=== PATIENT | male | born 1945 | race Caucasian/White ===

== ENCOUNTER 2016-12-04 21:00 | Inpatient (IN) | payer MEDICARE, MEDICAID ==
[2016-12-04] MEDS ORDERED: ASPIRIN 81 MG TABLET, CHEWABLE PO ONE (21:04)
[2016-12-04 21:46] LABS: ABSOLUTE BASOPHILS # (AUTO) 0.1 10^3/uL (0.0-0.2); ABSOLUTE EOSINOPHILS # (AUTO) 0.2 10^3/uL (0.0-0.6); ABSOLUTE MONOCYTES (AUTO) 0.6 10^3/uL (0.1-1.4); ABSOLUTE NEUT (AUTO) 8.1 10^3/uL (1.7-8.2); BASOPHILS % (AUTO) 1.2 % (0-2); EOSINOPHILS % (AUTO) 2.3 % (0-6); HEMATOCRIT 36.5 % (37.9-51.0); HEMOGLOBIN 11.7 g/dL (13.5-17.0); HGB HCT DIFFERENCE -1.4; LYMPHOCYTES % (AUTO) 10.4 % (13-45); MEAN CORPUSCULAR HEMOGLOBIN 28.6 pg (27.0-33.4); MEAN CORPUSCULAR HGB CONC 32.1 g/dL (32.0-36.0); MEAN CORPUSCULAR VOLUME 89 fl (80-97); MONOCYTES % (AUTO) 5.6 % (3-13); RED BLOOD COUNT 4.11 10^6/uL (4.35-5.55); RED CELL DISTRIBUTION WIDTH 17.5 % (11.5-14.0); SEGMENTED NEUTROPHILS % (AUTO) 80.5 % (42-78); WHITE BLOOD COUNT 10.1 10^3/uL (4.0-10.5)
[2016-12-04 22:04] LABS: ALANINE AMINOTRANSFERASE 31 U/L (21-72); ALBUMIN 3.7 g/dL (3.5-5.0); ALKALINE PHOSPHATASE 131 U/L (38-126); ANION GAP 14 (5-19); ASPARTATE AMINO TRANSFERASE 19 U/L (17-59); BILIRUBIN,TOTAL 0.4 mg/dL (0.2-1.3); BLOOD UREA NITROGEN 17 mg/dL (7-20); CALCIUM 8.8 mg/dL (8.4-10.2); CARBON DIOXIDE 25 mmol/L (22-30); CHLORIDE 103 mmol/L (98-107); CREATINE KINASE 24 U/L (55-170); CREATININE RESULT 0.52 mg/dL (0.52-1.25); GLUCOSE 177 mg/dL (75-110); POTASSIUM 4.1 mmol/L (3.6-5.0); SODIUM 142.2 mmol/L (137-145); TOTAL PROTEIN 6.3 g/dL (6.3-8.2)
[2016-12-04 22:21] LABS: CREATINE KINASE MB 1.04 ng/mL (<4.55)
[2016-12-04 22:30] LABS: TROPONIN I 0.038 ng/mL
[2016-12-04] MEDS ORDERED: METOPROLOL TARTRATE PF/INJ 5 MG/5 ML SDV IV ONE (22:34)
--- NOTE | 2016-12-04 22:34 | ER Document Report ---
ED General - General Chief Complaint: Irregular Pulse Stated Complaint: IRREGULAR HEARTBEAT Notes: Patient is a 71-year-old male presents with complaints of palpitations. He does have history of atrial flutter. Today he notices heart rate was feeling higher. He did not receive his evening meds. He did receive his morning meds at the group home. He does have a history of muscular dystrophy. He is able to fill pain but is unable to move his extremities. He denies any pain. No chest pain. No shortness of breath. No other complaints this time. No recent infections or fevers. TRAVEL OUTSIDE OF THE [place] IN LAST 30 DAYS: No - Related Data Allergies/Adverse Reactions: Sulfa (Sulfonamide Antibiotics) Allergy (Unknown, Verified 04/29/16 12:20) lisinopril Allergy (Verified 12/05/16 03:13) Past Medical History - Social History Smoking Status: Unknown if Ever Smoked Frequency of alcohol use: None Drug Abuse: None Family History: None, Other - Hereditary progressive muscular dystrophy - Past Medical History Cardiac Medical History: Reports: Hx Coronary Artery Disease, Hx Heart Attack, Hx Hypercholesterolemia, Hx Hypertension, Hx Heart Murmur Denies: Hx Atrial Fibrillation, Hx Congestive Heart Failure, Hx Peripheral Vascular Disease, Hx Pulmonary Embolism Pulmonary Medical History: Reports: Hx Bronchitis, Hx Pneumonia, Hx Respiratory Failure Denies: Hx Asthma, Hx COPD, Hx Sleep Apnea, Hx Tuberculosis Neurological Medical History: Reports: Hx Cerebrovascular Accident, Hx Migraine. Denies: Hx Seizures Endocrine Medical History: Reports: Hx Diabetes Mellitus Type 2. Denies: Hx Graves' Disease, Hx Hyperthyroidism, Hx Hypothyroidism Renal/ Medical History: Denies: Hx Benign Prostatic Hyperplasia, Hx End Stage Renal Disease, Hx Kidney Stones, Hx Peritoneal Dialysis Malignancy Medical History: Denies Hx Lung Cancer GI Medical History: Reports: Hx Gastroesophageal Reflux Disease, Hx Hiatal Hernia, Hx Irritable Bowel, Hx Ulcer. Denies: Hx Crohn's Disease, Hx Liver Failure Musculoskeltal Medical History: Reports Hx Arthritis, Denies Hx Fibromyalgia, Reports Hx Gout, Denies Hx Multiple Sclerosis, Reports Hx Muscular Dystrophy Psychiatric Medical History: Reports: Hx Anxiety, Hx Depression Denies: Hx Bipolar Disorder, Hx Dementia, Hx Post Traumatic Stress Disorder, Hx Schizophrenia Traumatic Medical History: Denies: Hx Fractures Past Surgical History: Reports: Hx Cholecystectomy. Denies: Hx Colostomy, Hx Pacemaker - Immunizations Hx Diphtheria, Pertussis, Tetanus Vaccination: Yes Hx Pneumococcal Vaccination: 11/19/00 Review of Systems - Review of Systems Notes: My Normal Review Basic REVIEW OF SYSTEMS: CONSTITUTIONAL : Denies fever, chills, or sweats. Denies recent illness. EENT: Denies eye, ear, throat, or mouth pain or symptoms. Denies nasal or sinus congestion. CARDIOVASCULAR: Denies chest pain. Has palpitations. RESPIRATORY: Denies cough, cold, or chest congestion. Denies shortness of breath, difficulty breathing, or wheezing. GASTROINTESTINAL: Denies abdominal pain. Denies nausea, vomiting, or diarrhea. Denies constipation. Last BM: MUSCULOSKELETAL: Denies neck or back pain or joint pain or swelling. SKIN: Denies rash or skin lesions. NEUROLOGICAL: Denies altered mental status or loss of consciousness. Denies headache. Denies weakness or paralysis or loss of use of either side. Denies problems with gait or speech. Denies sensory or motor loss. ALL OTHER SYSTEMS REVIEWED AND NEGATIVE. Physical Exam - Vital signs Vitals: Pulse Ox 99 12/04/16 21:16 - Notes Notes: General Appearance: Well nourished, alert, cooperative, no acute distress, no obvious discomfort. Well-appearing. Vitals: reviewed, See vital signs table. Head: no swelling or tenderness to the head Eyes: PERRL, EOMI, Conjuctiva clear Mouth: No decreasd moisture Neck: Supple, no neck tenderness, No thyromegaly Lungs: No wheezing, No rales, No rhonci, No accessory muscle use, good air exchange bilaterally. Heart: Tachycardic rate, irregular rythm, No murmur, no rub Abdomen: Normal BS, soft, No rigidity, No abdominal tenderness, No guarding, no rebound, no abdominal masses, no organomegaly Extremities: strength 5/5 in all extremities, good pulses in all extremities, no swelling or tenderness in the extremities, no edema. Skin: warm, dry, appropriate color, no rash Neuro: speech clear, oriented x 3, normal affect, responds appropriately to questions. Course - Vital Signs Vital signs: Temp Pulse Resp BP Pulse Ox 99.7 F 83 20 158/74 H 100 12/05/16 04:18 12/05/16 04:18 12/05/16 04:18 12/05/16 04:18 12/05/16 04:18 - Laboratory Result Diagrams: 12/04/16 21:34 12/04/16 21:34 Laboratory results interpreted by me: 12/04/16 12/04/16 21:34 21:34 RBC 4.11 L Hgb 11.7 L Hct 36.5 L RDW 17.5 H Seg Neutrophils % 80.5 H Lymphocytes % 10.4 L Glucose 177 H Alkaline Phosphatase 131 H Creatine Kinase 24 L - EKG Interpretation by Me Additional EKG results interpreted by me: 12/04/16 22:28 EKG is reviewed and interpreted by me. EKG shows A. fib versus a flutter with a rapid ventricular response. Radius proximal 110 bpm. QRS duration is within normal range. Due to intervals prolonged. No ST segment elevation or depression. Old EKG for comparison is from 04/30/2016 and shows atrial flutter. - Transfer of Care Notes: 12/05/16 06:01 Patient has atrial flutter with rapid ventricular response. I did give him Lopressor which did not have an effect on his heart rate. His heart rate continued increase in got as high as 140s. I started him on Cardizem drip. This has improved his symptoms. He has no chest pain. Cardiac enzymes are negative. He looks well. I spoke with the hospitalist who agrees with the patient for further management. Dictation of this chart was performed using voice recognition software; therefore, there may be some unintended grammatical errors. Discharge - Discharge Clinical Impression: Atrial flutter with rapid ventricular response Disposition: ADMITTED INPATIENT Admitting Provider: Hospitalist Unit Admitted: [facility]
[2016-12-05] MEDS ORDERED: DILTIAZEM HCL INJ 25 MG/5 ML VIAL IV ONE (00:12)
[2016-12-05] MEDS ORDERED: DILTIAZEM HCL/D5W 125 ML IV PRN (00:12)
[2016-12-05] MEDS ORDERED: INSULIN LISPRO 100 UNIT/ML 3 ML VIAL SUBCUT PRN (03:07)
[2016-12-05] MEDS ORDERED: DEXTROSE 50%-WATER 25 GM/50 ML DISP.SYRIN IV PRN ×2 (03:07)
[2016-12-05] MEDS ORDERED: GLUCAGON,HUMAN RECOMB 1 MG INJ IM PRN (03:07)
[2016-12-05] MEDS ORDERED: DEXTROSE 40% GEL 15 GM TUBE PO PRN ×2 (03:07)
[2016-12-05] MEDS ORDERED: DILTIAZEM HCL/D5W 125 MG/125 ML RTUINJ IV PRN (03:08)
--- NOTE | 2016-12-05 03:27 | PDOC H&P ---
History of Present Illness Admission Date/PCP: 12/05/16 02:12 Dr. Sanon Patient complains of: Rapid heartbeat History of Present Illness: MEAGHAN SALAMANCA is a 71 year old male, with known underlying atrial fibrillation, along with prior coronary artery stents, bedbound due to long-standing muscular dystrophy, but still able to detect pain and light touch , who presents to the emergency room for evaluation of above complaints. Patient has been discussed with emergency room physician who evaluated the patient. Patient describes a four-day history of intermittent sensation of a rapid heartbeat. No chest pain. Possibly low-grade temperature of 99 at care home ; no chills. No nausea vomiting. Was noted to be in atrial flutter with rapid ventricular response, necessitating both Cardizem boluses and eventual drip, which has controlled his rate nicely. States he was given his morning medications on the , but not his evening medications.. Transferred from our facility in April of last year for suspected non-ST elevation AL. Stayed 4 days at [facility]. States neither heart catheterization nor stress test was performed. Currently resting quietly without specific complaint. Laboratory results are listed in [employer] and are reviewed. X-ray summary results are listed below, with full report(s) reviewed. . EKG reviewed. And compared to a prior tracing from April 30 of last year. Social history/personal habits: . No children. On disability due to his muscular dystrophy. Long-term resident of [facility]. Allergies/adverse reactions are listed in [employer] and are reviewed. Home medications are reviewed from the medication administration record from the care home and are to [facility] Home medications initially autopopulated into [employer] may not accurately reflect patient's true medications, dosages, and/or frequencies. REVIEW OF SYSTEMS: Constitutional: See history and present illness. Eyes: Wears glasses. ENT: No swallowing problems or complaints. Partial hearing loss. Pulmonary: No current complaints. Cardiovascular: See history and present illness. Gastrointestinal: No current complaints, including nausea or vomiting. Skin: Occasional problems with eczema. Hematologic: No unusual easy bruising or bleeding. Neurologic: Chronic burning discomfort in his lower extremities from his diabetes mellitus. No motor function in any of his extremities, but states pain and light touch sensation are intact. Musculoskeletal: No current complaints, including painful joints. Psychiatric: Mild Anxiety depression; denies suicidal or homicidal ideation. Endocrine: No current complaints, including polyuria. Genitourinary: No current complaints, including dysuria. PHYSICAL EXAMINATION: Neither height nor weight are recorded on the chart. Temperature is not recorded on the chart; skin feels normothermic. Blood pressure 143/71. Pulse 82 and regular. 97% saturation on room air. Respirations are 17 and unlabored. Obese but also somewhat stocky male appearing quite a number of views younger than his stated age. Smiling pleasant awake alert and cooperative. No obvious distress other than somewhat anxious. Skin is warm and dry. No grossly obvious evidence of rash in areas of skin examined. No subcutaneous nodules palpated. ENT: Hearing grossly normal to normal conversation. Tongue midline on protrusion pink and slightly moist. Eyes: No scleral icterus. Pupils equal and reactive to light at 4 mm. [place] conjunctivae. Neck is supple and nontender to gentle active range of motion and palpation. Midline trachea. No palpable thyroid nodule mass enlargement or tenderness. Lymphatic: No palpable cervical or clavicular nodes. Neck and lymphatic exams limited by patient body habitus. Psychiatric: Reasonable insight into acute and chronic medical issues. Oriented to time location and why here. Lungs: Auscultation reveals clear and equal breath sounds bilaterally. No use of accessory respiratory muscles. Cardiovascular: Heart regular rate and rhythm, without gallop murmur or rub. No carotid or abdominal aortic bruits. Very mild bilateral symmetric slightly pitting calf ankle and pedal edema. Faintly palpable dorsalis pedis pulses. Abdomen: soft, obese, nontender with positive bowel sounds. Unable to adequately evaluate abdomen for masses or organomegaly due to body habitus. Extremities: Feet are warm and dry. No calf tenderness to compression. No grossly obvious visual evidence of calf swelling. Symmetric muscle wasting in both upper extremities, and in both lower extremities. Neurologic: Absent Babinski. Light touch is intact at feet. No motor function in any of his extremities. Past Medical History Cardiac Medical History: Reports: Atrial Fibrillation, Coronary Artery Disease, Myocardial Infarction, Hyperlipidema, Hypertension, Heart Murmur Denies: Congestive Heart Failure, DVT, Peripheral Vascular Disease, Pulmonary Embolism Pulmonary Medical History: Reports: Bronchitis, Pneumonia, Respiratory Failure Denies: Asthma, Chronic Obstructive Pulmonary Disease (COPD), Sleep Apnea, Tuberculosis EENT Medical History: Reports: Eyes - Wears glasses, Ears - Partial hearing loss Denies: Throat Neurological Medical History: Reports: Ischemic CVA, Migraine, Other - Long- standing muscular dystrophy. Denies: Hemorrhagic CVA, Seizures Endocrine Medical History: Reports: Diabetes Mellitus Type 2 Denies: Hyperthyroidism, Hypothyroidism Renal/ Medical History: Reports: None Denies: End Stage Renal Disease GI Medical History: Reports: Gastroesophageal Reflux Disease, Hiatal Hernia Denies: Cirrhosis, Crohn's Disease, Hepatitis, Peptic Ulcer Disease Musculoskeltal Medical History: Reports: Arthritis, Gout Skin Medical History: Reports: Eczema Psychiatric Medical History: Reports: Depression, General Anxiety Disorder Denies: Alcohol Dependency, Post Traumatic Stress Disorder, Substance Abuse, Tobacco Dependency Hematology: Reports: Anemia Infectious Medical History: Denies: Hepatitis B, Hepatitis C Past Surgical History Past Surgical History: Reports: Cholecystectomy, Other - Stents-coronary bilateral lower extremity, renal artery Social History Information Source: Patient, Emergency Med Personnel, [facility] Records Lives with: Mcc Smoking Status: Former Smoker Frequency of Alcohol Use: None Hx Recreational Drug Use: No Hx Prescription Drug Abuse: No - Advance Directive Resuscitation Status: Full Code Surrogate healthcare decision maker:: Brother Family History Family History: None, Other - Hereditary progressive muscular dystrophy Parental Family History Reviewed: Yes Children Family History Reviewed: NA Sibling(s) Family History Reviewed.: Yes Medication/Allergy Home Medications: Acetaminophen [Tylenol 325 mg Tablet] 650 mg PO Q4HP PRN 12/05/16 Albuterol Sulfate [Ventolin HFA MDI 18 GM] 2 puff IH Q4HP PRN 12/05/16 Apixaban [Eliquis 5 mg Tablet] 5 mg PO Q12 12/05/16 Aspirin [Aspirin 81 mg Chewable Tablet] 81 mg PO DAILY 12/05/16 Atorvastatin Calcium [Lipitor 80 mg Tablet] 80 mg PO QHS 12/05/16 Calcium Carbonate/Vitamin D3 [Oyster Shell Calcium-Vit D Tab] 1 tab PO DAILY Duloxetine HCl [Cymbalta] 60 mg PO QAM 12/05/16 Insulin Lispro [Humalog Insulin (Lispro) 100 unit/mL] 5 units SQ BIDP PRN Isosorbide Mononitrate [Isosorbide Mononitrate ER] 30 mg PO DAILY 12/05/16 Levocetirizine Dihydrochloride [Xyzal 5 mg Tablet] 5 mg PO DAILYP PRN 12/05/16 Loperamide HCl [Imodium 2 mg Capsule] 2 mg PO Q4HP PRN 12/05/16 Lorazepam [Ativan 0.5 mg Tablet] 0.5 mg PO QHS 12/05/16 Magnesium Oxide [Mag-Ox 400 mg Tablet] 400 mg PO DAILY 12/05/16 Metformin HCl [Glucophage] 1,000 mg PO DAILY 12/05/16 Nitroglycerin [Nitrostat] 0.4 mg SL Q5MP PRN 12/05/16 Polyvinyl Alcohol [Artificial Tears] 1 drop OU QIDP PRN 12/05/16 Promethazine HCl [Phenergan 25 mg Tablet] 25 mg PO Q4HP PRN 12/05/16 Psyllium Husk/Aspartame [Metamucil Fiber Singles Packet] 3.4 gm PO BIDP PRN Simethicone [Gas-X] 80 mg PO DAILYP PRN 12/05/16 Sitagliptin Phosphate [Januvia] 100 mg PO DAILY 12/05/16 Tamsulosin HCl [Flomax 0.4 mg Cap.sr] 0.4 mg PO DAILY 12/05/16 Toothpaste [Sensodyne] 1 applic PO BID 12/05/16 Diltiazem HCl [Cardizem Cd 120 mg Capsule] 120 mg PO DAILY #30 cap.sr.24h Diphenhydramine HCl 2% Cream [Benadryl 2% Allergy Cream 30 gm] 1 applic TP BID # 1 tube 12/06/16 Fluocinonide [Lidex-E 0.05% Cream 15 gm] 1 applic TP BID@0700,1900 #1 tube 12/06 Hydrocodone Bit/Acetaminophen [Hydrocodon-Acetaminophen 5-325] 1 tab PO Q4HP PRN #30 12/06/16 Hydroxyzine HCl [Atarax 10 mg Tablet] 25 mg PO QHS #30 tablet 12/06/16 Metoprolol Tartrate [Lopressor 100 mg Tablet] 100 mg PO Q12 #60 tablet 12/06/16 Allergies/Adverse Reactions: Sulfa (Sulfonamide Antibiotics) Allergy (Unknown, Verified 04/29/16 12:20) lisinopril Allergy (Verified 12/05/16 03:13) Physical Exam Vital Signs: Temp Pulse Resp BP Pulse Ox 11 L 134/74 H 97 12/05/16 00:38 12/05/16 00:38 12/05/16 00:38 Results Impressions: Chest X-Ray 12/04/16 21:04 IMPRESSION: NO ACUTE RADIOGRAPHIC FINDING IN THE CHEST. Assessment & Plan - Diagnosis (1) Patient is full code Is this a current diagnosis for this admission?: Yes (2) Atrial flutter with rapid ventricular response Is this a current diagnosis for this admission?: YesPlan: Suspect this episode due in part to not having received his evening medication. Continue Cardizem drip. TSH is pending. Serial troponin.Resume home medications as appropriate once these have been reviewed. (3) Elevated troponin Is this a current diagnosis for this admission?: YesPlan: Low indeterminate range. Serial troponin. Remains chest pain-free. (4) Anticoagulated Is this a current diagnosis for this admission?: YesPlan: Resume home medications as appropriate once these have been reviewed. (5) Muscular dystrophy Is this a current diagnosis for this admission?: YesPlan: Innovative mattress. Turn every 2 hours. (6) Stented coronary artery Is this a current diagnosis for this admission?: YesPlan: Resume home medications as appropriate once these have been reviewed. - Inpatient Certification Based on my medical assessment, after consideration of the patient's comorbidities, presenting symptoms, or acuity I expect that the services needed warrant INPATIENT care.: Yes I certify that my determination is in accordance with my understanding of Medicare's requirements for reasonable and necessary INPATIENT services [42 CFR 412.3e].: Yes Medical Necessity: Need Close Monitoring Due to Risk of Patient Decompensation, Need For Continuous Telemetry Monitoring, Risk of Diagnosis Which Will Require Inpatient Eval/Care/Monitoring
[2016-12-05 04:18] LABS: APPEARANCE,URINE CLEAR; BILIRUBIN,URINE NEGATIVE (NEGATIVE); GLUCOSE, URINE NEGATIVE (NEGATIVE); KETONES,URINE NEGATIVE (NEGATIVE); LEUKOCYTE ESTERASE,URINE NEGATIVE (NEGATIVE); NITRITE,URINE NEGATIVE (NEGATIVE); PROTEIN,URINE 100 mg/dL (NEGATIVE); URINE SPECIFIC GRAVITY 1.006; UROBILINOGEN,URINE NEGATIVE mg/dL (<2.0)
--- NOTE | 2016-12-05 07:59 | EKG REPORT ---
SEVERITY:- ABNORMAL ECG - ATRIAL FIB- FLUTTER, A-RATE 294 PROBABLE LVH WITH SECONDARY REPOL ABNRM ST DEPRESSION, CONSIDER ISCHEMIA, INF LEADS : Confirmed by: Lalo Herrera MD 05-Dec-2016 07:59:09
[2016-12-05] MEDS ORDERED: SIMETHICONE 80 MG TAB.CHEW PO PRN (09:06)
[2016-12-05] MEDS ORDERED: ALBUTEROL SULFATE HFA (90 MCG/PUFF) 8 GM MDI (1 MDI/ER DISP) IH PRN (09:06)
[2016-12-05] MEDS ORDERED: (PENDING PHARMACY ID) (Dextran 70/Hypromellose [Artificial Tears] 1 EACH) OP PRN (09:06)
[2016-12-05] MEDS ORDERED: LORAZEPAM 0.5 MG TABLET PO PRN (09:10)
[2016-12-05] MEDS ORDERED: ALBUTEROL SULFATE HFA (90 MCG/PUFF) 200 PUFF/8.5 GM MDI IH PRN (09:18)
[2016-12-05] MEDS: DOCUSATE SODIUM 100 MG CAPSULE PO SCH ×2 (09:43→17:58)
[2016-12-05] MEDS: MAGNESIUM OXIDE 400 MG TABLET PO SCH (09:55)
[2016-12-05] MEDS: SITAGLIPTIN PHOSPHATE 50 MG TABLET PO SCH (09:56)
[2016-12-05] MEDS: ISOSORBIDE MONONITRATE 30 MG TAB.ER.24H PO SCH (09:56)
[2016-12-05] MEDS: APIXABAN 5 MG TABLET PO SCH ×2 (09:56→17:58)
[2016-12-05] MEDS: ASPIRIN 81 MG TABLET, CHEWABLE PO SCH (09:57)
[2016-12-05] MEDS: TAMSULOSIN HCL 0.4 MG CAP.SR.24H PO SCH (09:57)
[2016-12-05] MEDS ORDERED: [UNRECOGNIZED DRUG - OTHER] PO SCH (10:00)
[2016-12-05] MEDS ORDERED: VITAMIN D3 PO SCH (10:00)
[2016-12-05] MEDS ORDERED: CALCIUM CARBONATE PO SCH (10:00)
[2016-12-05] MEDS ORDERED: METOPROLOL TARTRATE 25 MG TABLET PO SCH (10:00)
[2016-12-05] MEDS ORDERED: CALCIUM CARBONATE 250 MG/VITAMIN D3 125 UNIT TABLET PO SCH (10:00)
[2016-12-05] MEDS ORDERED: DULOXETINE HCL 30 MG CAPSULE.DR PO ONE (10:00)
[2016-12-05] MEDS ORDERED: DILTIAZEM HCL 120 MG CAP.SR.24H PO ONE ×2 (11:00→12:00)
[2016-12-05] MEDS: ACETAMINOPHEN 325 MG TABLET PO PRN (11:10)
[2016-12-05] MEDS ORDERED: METOPROLOL TARTRATE 25 MG TABLET PO ONE (11:30)
[2016-12-05] MEDS ORDERED: POLYVINYL ALCOHOL 1.4% OPH SOLN 15 ML OU PRN (12:46)
--- NOTE | 2016-12-05 13:12 | PDOC PROGRESS REPORT ---
Subjective Progress Note for:: 12/05/16 Subjective:: Patient is feeling well; he has no chest pain no palpitations no fever no chills On the monitor in atrial fibrillation with controlled ventricular rate at 90-100 Physical Exam Vital Signs: Temp Pulse Resp BP Pulse Ox 98.5 F 75 16 158/67 H 99 12/05/16 11:06 12/05/16 11:31 12/05/16 11:06 12/05/16 12:02 12/05/16 12:02 Intake & Output 12/04/16 12/05/16 12/06/16 00:59 00:59 00:59 Intake Total 10 Output Total 700 Balance -690 Weight 87.7 kg General appearance: PRESENT: no acute distress, well-developed, well-nourished Head exam: PRESENT: atraumatic, normocephalic Eye exam: PRESENT: conjunctiva pink, EOMI, PERRLA. ABSENT: scleral icterus Ear exam: PRESENT: normal external ear exam Mouth exam: PRESENT: moist, tongue midline Neck exam: ABSENT: carotid bruit, JVD, lymphadenopathy, thyromegaly Respiratory exam: PRESENT: clear to auscultation [place]. ABSENT: rales, rhonchi, wheezes Cardiovascular exam: PRESENT: irregular rhythm, RRR. ABSENT: diastolic murmur, rubs, systolic murmur Pulses: PRESENT: normal dorsalis pedis pul Vascular exam: PRESENT: normal capillary refill GI/Abdominal exam: PRESENT: normal bowel sounds, soft. ABSENT: distended, guarding, mass, organolmegaly, rebound, tenderness Rectal exam: PRESENT: deferred Extremities exam: PRESENT: pedal edema - 1+ bilaterally. ABSENT: calf tenderness, clubbing Neurological exam: PRESENT: alert, awake, oriented to person, oriented to place , oriented to time, oriented to situation, other - Paraplegia Psychiatric exam: PRESENT: appropriate affect, normal mood. ABSENT: homicidal ideation, suicidal ideation Skin exam: PRESENT: dry, intact, warm, other - Back Papular rash erythematous confluent in some areas Extremely pruritic Patient states rash has been there for several months. ABSENT: cyanosis, rash Results Laboratory Results: 12/05/16 03:43 Urine Color STRAW Urine Appearance CLEAR Urine pH 7.0 Ur Specific [place] 1.006 Urine Protein 100 H Urine Glucose (UA) NEGATIVE Urine Ketones NEGATIVE Urine Blood SMALL H Urine Nitrite NEGATIVE Ur Leukocyte Esterase NEGATIVE Urine RBC (Auto) 0 12/05/16 12/05/16 03:31 10:40 Troponin I 0.041 0.040 Impressions: Chest X-Ray 12/04/16 21:04 IMPRESSION: NO ACUTE RADIOGRAPHIC FINDING IN THE CHEST. Assessment & Plan - Diagnosis (1) Atrial fibrillation and flutter Is this a current diagnosis for this admission?: YesPlan: With rapid ventricular rate We will increase metoprolol; initiate Cardizem CD 120 mg daily Stop Cardizem IV (2) Coronary artery disease Qualifiers: Coronary Disease-Associated Artery/Lesion type: [place] artery [place] vs. transplanted heart: [place] heart Associated angina: angina presence unspecified Qualified Code(s): I25.10 - Atherosclerotic heart disease of [place] coronary artery without angina pectoris Is this a current diagnosis for this admission?: YesPlan: Continue present management Troponins are in intermediate range (3) Eczema Qualifiers: Eczema type: unspecified Qualified Code(s): L30.9 - Dermatitis, unspecified Is this a current diagnosis for this admission?: YesPlan: We'll order cortisone cream and antihistamine (4) Anticoagulated Is this a current diagnosis for this admission?: Yes (5) Diabetes mellitus type 2 in obese Is this a current diagnosis for this admission?: YesPlan: Continue the present management (6) Muscular dystrophy Is this a current diagnosis for this admission?: Yes (7) PVD (peripheral vascular disease) Is this a current diagnosis for this admission?: YesPlan: Continue present meds (8) Chronic anticoagulation Is this a current diagnosis for this admission?: YesPlan: Continue Eliquis - Time Time Spent with patient: We will discharge patient in a.m. if rate is controlled Time Spent with patient: 25-34 minutes
[2016-12-05] MEDS ORDERED: HYDROXYZINE HCL 10 MG TABLET PO PRN (18:00)
[2016-12-05] MEDS: FLUOCINONIDE 0.05% CREAM 15 GM TP SCH (21:03)
[2016-12-05] MEDS: METOPROLOL TARTRATE 100 MG TABLET PO SCH (21:03)
[2016-12-05] MEDS ORDERED: ATORVASTATIN CALCIUM 80 MG TABLET PO SCH (22:00)
[2016-12-06] MEDS: ACETAMINOPHEN 325 MG TABLET PO PRN (04:17)
[2016-12-06] MEDS: FLUOCINONIDE 0.05% CREAM 15 GM TP SCH (06:16)
[2016-12-06] MEDS ORDERED: DULOXETINE HCL 30 MG CAPSULE.DR PO SCH (08:00)
[2016-12-06] MEDS: DOCUSATE SODIUM 100 MG CAPSULE PO SCH (09:49)
[2016-12-06] MEDS: SITAGLIPTIN PHOSPHATE 50 MG TABLET PO SCH (09:50)
[2016-12-06] MEDS: MAGNESIUM OXIDE 400 MG TABLET PO SCH (09:50)
[2016-12-06] MEDS: TAMSULOSIN HCL 0.4 MG CAP.SR.24H PO SCH (09:50)
[2016-12-06] MEDS: METOPROLOL TARTRATE 100 MG TABLET PO SCH (09:51)
[2016-12-06] MEDS: APIXABAN 5 MG TABLET PO SCH (09:51)
[2016-12-06] MEDS: ISOSORBIDE MONONITRATE 30 MG TAB.ER.24H PO SCH (09:52)
[2016-12-06] MEDS: ASPIRIN 81 MG TABLET, CHEWABLE PO SCH (09:53)
[2016-12-06] MEDS ORDERED: DILTIAZEM HCL 120 MG CAP.SR.24H PO SCH (10:00)
[2016-12-06] MEDS ORDERED: CALCIUM CARBONATE 250 MG/VITAMIN D3 125 UNIT TABLET PO SCH (10:00)
--- NOTE | 2016-12-06 13:21 | PDOC DISCHARGE SUMMARY ---
General - Admit/Disc Date/PCP Admission Date/Primary Care Provider: 12/05/16 03:06 Dr Sanon Discharge Date: 12/06/16 - Discharge Diagnosis (1) Atrial fibrillation and flutter Is this a current diagnosis for this admission?: Yes (2) Coronary artery disease Is this a current diagnosis for this admission?: Yes (3) Eczema Is this a current diagnosis for this admission?: Yes (4) Anticoagulated Is this a current diagnosis for this admission?: Yes (5) Diabetes mellitus type 2 in obese Is this a current diagnosis for this admission?: Yes (6) Muscular dystrophy Is this a current diagnosis for this admission?: Yes (7) PVD (peripheral vascular disease) Is this a current diagnosis for this admission?: Yes (8) Chronic anticoagulation Is this a current diagnosis for this admission?: Yes (9) Dermatitis Is this a current diagnosis for this admission?: Yes - Additional Information Resuscitation Status: Full Code Discharge Diet: Cardiac, Diabetic Discharge Activity: Activity As Tolerated Home Medications: Acetaminophen [Tylenol 325 mg Tablet] 650 mg PO Q4HP PRN 12/05/16 Albuterol Sulfate [Ventolin HFA MDI 18 GM] 2 puff IH Q4HP PRN 12/05/16 Apixaban [Eliquis 5 mg Tablet] 5 mg PO Q12 12/05/16 Aspirin [Aspirin 81 mg Chewable Tablet] 81 mg PO DAILY 12/05/16 Atorvastatin Calcium [Lipitor 80 mg Tablet] 80 mg PO QHS 12/05/16 Calcium Carbonate/Vitamin D3 [Oyster Shell Calcium-Vit D Tab] 1 tab PO DAILY Duloxetine HCl [Cymbalta] 60 mg PO QAM 12/05/16 Insulin Lispro [Humalog Insulin (Lispro) 100 unit/mL] 5 units SQ BIDP PRN Isosorbide Mononitrate [Isosorbide Mononitrate ER] 30 mg PO DAILY 12/05/16 Levocetirizine Dihydrochloride [Xyzal 5 mg Tablet] 5 mg PO DAILYP PRN 12/05/16 Loperamide HCl [Imodium 2 mg Capsule] 2 mg PO Q4HP PRN 12/05/16 Lorazepam [Ativan 0.5 mg Tablet] 0.5 mg PO QHS 12/05/16 Magnesium Oxide [Mag-Ox 400 mg Tablet] 400 mg PO DAILY 12/05/16 Metformin HCl [Glucophage] 1,000 mg PO DAILY 12/05/16 Nitroglycerin [Nitrostat] 0.4 mg SL Q5MP PRN 12/05/16 Polyvinyl Alcohol [Artificial Tears] 1 drop OU QIDP PRN 12/05/16 Promethazine HCl [Phenergan 25 mg Tablet] 25 mg PO Q4HP PRN 12/05/16 Psyllium Husk/Aspartame [Metamucil Fiber Singles Packet] 3.4 gm PO BIDP PRN Simethicone [Gas-X] 80 mg PO DAILYP PRN 12/05/16 Sitagliptin Phosphate [Januvia] 100 mg PO DAILY 12/05/16 Tamsulosin HCl [Flomax 0.4 mg Cap.sr] 0.4 mg PO DAILY 12/05/16 Toothpaste [Sensodyne] 1 applic PO BID 12/05/16 Diltiazem HCl [Cardizem Cd 120 mg Capsule] 120 mg PO DAILY #30 cap.sr.24h Diphenhydramine HCl 2% Cream [Benadryl 2% Allergy Cream 30 gm] 1 applic TP BID # 1 tube 12/06/16 Fluocinonide [Lidex-E 0.05% Cream 15 gm] 1 applic TP BID@0700,1900 #1 tube 12/06 Hydrocodone Bit/Acetaminophen [Hydrocodon-Acetaminophen 5-325] 1 tab PO Q4HP PRN #30 12/06/16 Hydroxyzine HCl [Atarax 10 mg Tablet] 25 mg PO QHS #30 tablet 12/06/16 Metoprolol Tartrate [Lopressor 100 mg Tablet] 100 mg PO Q12 #60 tablet 12/06/16 History of Present Illness Patient complains of: palpitations History of Present Illness: MEAGHAN SALAMANCA is a 71 year old male atient complains of: Rapid heartbeat History of Present Illness: MEAGHAN SALAMANCA is a 71 year old male, with known underlying atrial fibrillation, along with prior coronary artery stents, bedbound due to long-standing muscular dystrophy, but still able to detect pain and light touch , who presents to the emergency room for evaluation of above complaints. Patient has been discussed with emergency room physician who evaluated the patient. Patient describes a four-day history of intermittent sensation of a rapid heartbeat. No chest pain. Possibly low-grade temperature of 99 at [facility] ; no chills. No nausea vomiting. Was noted to be in atrial flutter with rapid ventricular response, necessitating both Cardizem boluses and eventual drip, which has controlled his rate nicely. States he was given his morning medications on the 16, but not his evening medications.. Transferred from our facility in April of last year for suspected non-ST elevation GA. Stayed 4 days at [facility]. States neither heart catheterization nor stress test was performed. Currently resting quietly without specific complaint. Hospital Course Hospital Course: 1 coronary artery disease Patient had serial cardiac enzymes which were in intermediate range at 0.04 Patient did not have any chest pain There was no evidence of an acute coronary syndrome 2 atrial fibrillation with rapid ventricular rate Patient was treated with Cardizem IV he was switched to Cardizem CD 120 mg daily We increased his metoprolol 100 mg by mouth every 12 hours 3 dermatitis Patient has had a chronic rash primarily on his back and abdomen extremely pruritic Rash has been diagnosed as eczema by Dr. Pearl dermatology We ordered a cortisone cream, Benadryl cream and Atarax by mouth to alleviate the itching We suggest that patient be followed up at Dr. Pearl office in 2-3 weeks Physical Exam Vital Signs: Temp Pulse Resp BP Pulse Ox 98.6 F 63 18 151/65 H 98 12/06/16 07:37 12/06/16 07:37 12/06/16 07:37 12/06/16 07:37 12/06/16 07:37 Intake & Output 12/05/16 12/06/16 12/07/16 00:59 00:59 00:59 Intake Total 480 50 Output Total 1608 775 Balance -7965 -725 Weight 87.7 kg General appearance: PRESENT: no acute distress, well-developed, well-nourished Head exam: PRESENT: atraumatic, normocephalic Eye exam: PRESENT: conjunctiva pink, EOMI, PERRLA. ABSENT: scleral icterus Neck exam: ABSENT: carotid bruit, full ROM, JVD, lymphadenopathy, meningismus, tenderness, thyromegaly, tracheal deviation, tracheostomy, other Respiratory exam: PRESENT: clear to auscultation douglas. ABSENT: rales, rhonchi, wheezes Cardiovascular exam: PRESENT: irregular rhythm. ABSENT: diastolic murmur, gallop, systolic murmur Pulses: PRESENT: normal dorsalis pedis pul Vascular exam: PRESENT: normal capillary refill GI/Abdominal exam: PRESENT: normal bowel sounds, soft. ABSENT: distended, guarding, mass, organolmegaly, rebound, tenderness Extremities exam: PRESENT: other - Muscle atrophy Neurological exam: PRESENT: alert, oriented to person, oriented to place, oriented to time, other - Severe motor deficits upper and lower extremity atrophy of the muscles Psychiatric exam: PRESENT: appropriate affect, normal mood. ABSENT: homicidal ideation, suicidal ideation Results Laboratory Results: 12/05/16 12/05/16 03:31 10:40 Troponin I 0.041 0.040 12/04/16 21:34 12/04/16 21:34 12/04/16 12/04/16 12/05/16 21:34 21:34 03:31 Creatine Kinase 24 L CK-MB (CK-2) 1.04 Troponin I 0.038 0.041 12/05/16 10:40 Creatine Kinase CK-MB (CK-2) Troponin I 0.040 Labs- All tests 24 hr 12/05/16 12/05/16 12/06/16 15:20 22:07 05:59 POC Glucose 112 H 157 H 134 H 12/06/16 10:56 POC Glucose 163 H Impressions: Chest X-Ray 12/04/16 21:04 IMPRESSION: NO ACUTE RADIOGRAPHIC FINDING IN THE CHEST. Plan Discharge Plan: Patient will be discharged back to the [facility] Follow up with dermatology in 2-3 weeks Time Spent: Greater than 30 Minutes
[2016-12-06 16:41] VITALS: BP 134/55
[2016-12-06] MEDS ORDERED: DIPHENHYDRAMINE HCL 2% CREAM 30 GM TP SCH (18:00)
== END 2016-12-06 18:30 | DRG 309 ==
LOC: ER 21:00 → EH 12-05 02:12 → UNDOADMIN 12-05 02:12 → EH 12-05 03:06 → 3N 12-05 04:15
PROVIDERS: ADMIT Family Medicine; ATTEND Family Medicine
DX: I48.91 Unspecified atrial fibrillation (principal); G71.0 Muscular dystrophy; I48.92 Unspecified atrial flutter; I10 Essential (primary) hypertension; I25.10 Atherosclerotic heart disease of native coronary artery without angina pectoris; E78.5 Hyperlipidemia, unspecified; E11.9 Type 2 diabetes mellitus without complications; L30.9 Dermatitis, unspecified; K21.9 Gastro-esophageal reflux disease without esophagitis; I25.2 Old myocardial infarction; Z88.2 Allergy status to sulfonamides; Z88.8 Allergy status to other drugs, medicaments and biological substances; Z86.73 Personal history of transient ischemic attack (TIA), and cerebral infarction without residual deficits; Z79.01 Long term (current) use of anticoagulants; Z79.82 Long term (current) use of aspirin; Z79.4 Long term (current) use of insulin; Z95.5 Presence of coronary angioplasty implant and graft
CPT/HCPCS: 36415; 71010; 80053; 81001; 82550; 82553; 82962; 83735; 84443; 84484; 85025; 93005; 93010; J3490

== ENCOUNTER 2017-01-16 15:01 | Day surgery (SDC) | payer MEDICARE, MEDICAID ==
[2017-01-16] MEDS ORDERED: PROMETHAZINE HCL INJ 25 MG/1 ML VIAL ONE ×3 (15:32→15:43)
[2017-01-16] MEDS ORDERED: NALOXONE HCL INJ/PF 0.4 MG/1 ML SDV ONE ×3 (15:32→15:43)
[2017-01-16] MEDS ORDERED: MIDAZOLAM 2 MG/2 ML INJ ONE ×2 (15:32→15:43)
[2017-01-16] MEDS ORDERED: FENTANYL CITRATE INJ/PF 100 MCG/2 ML AMPUL ONE ×3 (15:34→15:43)
[2017-01-16] MEDS ORDERED: FLUMAZENIL INJ 0.5 MG/5 ML VIAL IV ONE (15:44)
[2017-01-16] MEDS ORDERED: EPINEPHRINE INJ 1 MG/10 ML DISP.SYRIN ONE (15:44)
[2017-01-16] MEDS ORDERED: GLUCAGON,HUMAN RECOMB 1 MG INJ ONE (15:44)
--- NOTE | 2017-01-16 16:03 | Operative Report ---
Operative Report DATE OF SURGERY: 01/16/17 Operative Report: Pre-op diagnosis: Dysphagia Post-op diagnosis: Normal EGD Surgery: Esophagogastroduodenoscopy with biopsy Medications: Versed 2mg Fentanyl 100 mcg IV push Tissue removed: Antral biopsy for pathology Procedure: After informed consent obtained from patient, the throat was sprayed with Hurricane and conscious sedation was achieved. The upper endoscope was inserted into the esophagus under direct vision and advanced into the stomach. The duodenum was entered and examined to the second part. Endoscope was then slowly pulled out of the patient as the mucosa was examined into details. Patient tolerated procedure well. Findings Esophagus: Normal Z-line at: 40 cm Antrum: Normal Body: Normal Fundus: Normal Duodenum first part: Normal Duodenum second part: Normal Plan: Await pathology. Dysphagia is most likely from his muscular dystrophy OPERATION: .
--- NOTE | 2017-01-16 16:04 | PDOC DISCHARGE SUMMARY ---
Discharge Summary (SDC) - Discharge Final Diagnosis: Normal Date of Surgery: 01/16/17 Condition: Stable Treatment or Instructions: None Discharge Diet: As Tolerated Discharge Activity: Activity As Tolerated Report the Following to Your Physician Immediately: Vomiting, Redness, Swelling , Warmth
[2017-01-16 17:25] VITALS: BP 120/59
== END 2017-01-16 17:15 ==
LOC: END 15:01
PROVIDERS: ATTEND Internal Medicine Gastroenterology
PROC: 0DB68ZX Excision of Stomach, Via Natural or Artificial Opening Endoscopic, Diagnostic (ICD-10-PCS; principal; 2017-01-16 15:30)
DX: R13.10 Dysphagia, unspecified (principal); R11.11 Vomiting without nausea; K29.50 Unspecified chronic gastritis without bleeding; I10 Essential (primary) hypertension; E11.9 Type 2 diabetes mellitus without complications; J45.909 Unspecified asthma, uncomplicated; E78.00 Pure hypercholesterolemia, unspecified; Z87.11 Personal history of peptic ulcer disease; K21.9 Gastro-esophageal reflux disease without esophagitis; G71.0 Muscular dystrophy; G82.50 Quadriplegia, unspecified; M10.9 Gout, unspecified; G89.4 Chronic pain syndrome; I50.9 Heart failure, unspecified; I25.2 Old myocardial infarction; R07.89 Other chest pain; I25.10 Atherosclerotic heart disease of native coronary artery without angina pectoris; E66.9 Obesity, unspecified; Z68.29 Body mass index [BMI] 29.0-29.9, adult; Z99.3 Dependence on wheelchair; Z79.51 Long term (current) use of inhaled steroids; Z79.82 Long term (current) use of aspirin; Z88.2 Allergy status to sulfonamides; Z79.84 Long term (current) use of oral hypoglycemic drugs; Z88.8 Allergy status to other drugs, medicaments and biological substances; Z79.1 Long term (current) use of non-steroidal anti-inflammatories (NSAID); Z79.4 Long term (current) use of insulin; Z79.01 Long term (current) use of anticoagulants
CPT/HCPCS: 43239; 82962; 88305 ×2; J2250; J3010; J2310; J0171; J1610; J2550; J3490

== ENCOUNTER 2017-04-08 21:35 | Inpatient (IN) | payer MEDICARE, MEDICAID ==
--- NOTE | 2017-04-08 22:30 | ER Document Report ---
ED General - General Chief Complaint: General Weakness Stated Complaint: WEAKNESS Time Seen by Provider: 04/08/17 21:59 Notes: Patient is a 71-year-old male who presents with complaint of hallucinations and fever from [facility]. Patient can give me some history that times starts saying things that does not make sense. He does realize that he has had a fever today. He then starts to talk about being in [facility] and about some somebody coming from behind him while he was sitting in a chair. These do not correlate with anything that is going on currently. He denies any headache. Denies any pain anywhere. He says he has had a mild cough. He denies any nausea or vomiting. He denies any abdominal pain. TRAVEL OUTSIDE OF THE [place] IN LAST 30 DAYS: No - Related Data Allergies/Adverse Reactions: lisinopril Allergy (Unknown, Verified 01/16/17 15:10) Sulfa (Sulfonamide Antibiotics) Allergy (Unknown, Verified 01/16/17 15:10) Past Medical History - Social History Smoking Status: Unknown if Ever Smoked Chew tobacco use (# tins/day): No Frequency of alcohol use: None Drug Abuse: None Family History: None, Other - Hereditary progressive muscular dystrophy - Past Medical History Cardiac Medical History: Reports: Hx Atrial Fibrillation, Hx Coronary Artery Disease, Hx Heart Attack, Hx Hypercholesterolemia, Hx Hypertension, Hx Heart Murmur Denies: Hx Congestive Heart Failure, Hx DVT, Hx Peripheral Vascular Disease, Hx Pulmonary Embolism Pulmonary Medical History: Reports: Hx Asthma, Hx Bronchitis, Hx Pneumonia, Hx Respiratory Failure Denies: Hx COPD, Hx Sleep Apnea, Hx Tuberculosis Neurological Medical History: Reports: Hx Cerebrovascular Accident, Hx Migraine. Denies: Hx Seizures Endocrine Medical History: Reports: Hx Diabetes Mellitus Type 2. Denies: Hx Graves' Disease, Hx Hyperthyroidism, Hx Hypothyroidism Renal/ Medical History: Denies: Hx Benign Prostatic Hyperplasia, Hx End Stage Renal Disease, Hx Kidney Stones, Hx Peritoneal Dialysis Malignancy Medical History: Denies Hx Lung Cancer GI Medical History: Reports: Hx Gastroesophageal Reflux Disease, Hx Hiatal Hernia, Hx Irritable Bowel, Hx Ulcer. Denies: Hx Cirrhosis, Hx Crohn's Disease , Hx Hepatitis, Hx Liver Failure Musculoskeltal Medical History: Reports Hx Arthritis - GOUT, Denies Hx Fibromyalgia, Reports Hx Gout, Denies Hx Multiple Sclerosis, Reports Hx Muscular Dystrophy Skin Medical History: Reports Hx Eczema Psychiatric Medical History: Reports: Hx Anxiety, Hx Depression Denies: Hx Bipolar Disorder, Hx Dementia, Hx Post Traumatic Stress Disorder, Hx Schizophrenia Traumatic Medical History: Denies: Hx Fractures Infectious Medical History: Denies: Hx Hepatitis Past Surgical History: Reports: Hx Cholecystectomy, Other - Stents-coronary bilateral lower extremity, renal artery. Denies: Hx Colostomy, Hx Pacemaker - Immunizations Hx Diphtheria, Pertussis, Tetanus Vaccination: Yes Hx Pneumococcal Vaccination: 11/19/00 Review of Systems - Review of Systems -: Yes ROS unobtainable due to patient's medical condition - Patient is confused Physical Exam - Vital signs Vitals: Temp Pulse Resp BP Pulse Ox 99.5 F 64 18 99/63 L 92 04/08/17 21:45 04/08/17 21:45 04/08/17 21:45 04/08/17 21:45 04/08/17 21:45 - Notes Notes: General Appearance: Well nourished, awake but sleepy appearing, cooperative, no acute distress, no obvious discomfort. Vitals: reviewed, See vital signs table. Head: no swelling or tenderness to the head Eyes: PERRL, EOMI, Conjuctiva clear Mouth: No decreasd moisture Throat: No tonsillar inflammation, No airway obstruction, No lymphadenopathy Neck: Supple, no neck tenderness Lungs: No wheezing, No rales, No rhonci, No accessory muscle use, good air exchange bilaterally. Heart: Normal rate, Regular rythm, No murmur, no rub Abdomen: Normal BS, soft, No rigidity, No abdominal tenderness, No guarding, no rebound, no abdominal masses, no organomegaly Extremities: strength 5/5 in all extremities, good pulses in all extremities, no swelling or tenderness in the extremities, no edema. Skin: warm, dry, appropriate color, no rash Neuro: speech clear, oriented x 2, normal affect, responds appropriately to some questions. Course - Re-evaluation Re-evalutation: 04/09/17 01:33 Patient has hypertension has resolved over the last 3 hours. His blood pressure is now systolically in the low 100s. He does have what appears to be pneumonia in the left side. This would correlate with his recent history of coughing and fever. He does have intermittent altered mental status. Most times he can answer questions appropriately but other times he seems confused and has some hallucinations. His facility acquired pneumonia and therefore will place him on antibiotic. His oxygen saturation is between 90-94%. I spoke with the hospitalist who agrees to admit the patient. 1 Dictation of this chart was performed using voice recognition software; therefore, there may be some unintended grammatical errors. - Vital Signs Vital signs: Temp Pulse Resp BP Pulse Ox 99.5 F 64 18 99/63 L 92 04/08/17 21:45 04/08/17 21:45 04/08/17 21:45 04/08/17 21:45 04/08/17 21:45 - Laboratory Result Diagrams: 04/08/17 22:35 04/08/17 22:35 Laboratory results interpreted by me: 04/08/17 04/08/17 04/08/17 22:35 22:35 23:59 WBC 13.8 H RBC 4.28 L Hgb 11.2 L Hct 35.2 L MCH 26.2 L MCHC 31.9 L RDW 17.5 H Seg Neutrophils % 80.6 H Lymphocytes % 9.0 L Absolute Neutrophils 11.2 H Sodium 134.2 L Potassium 5.1 H Chloride 96 L Creatinine 0.44 L Glucose 197 H AST 16 L Alkaline Phosphatase 175 H Albumin 3.4 L Urine Protein >=500 H Urine Glucose (UA) 50 H Discharge - Discharge Clinical Impression: Pneumonia Qualifiers: Pneumonia type: due to unspecified organism Laterality: left Lung location: lower lobe of lung Qualified Code(s): J18.1 - Lobar pneumonia, unspecified organism Condition: Stable Disposition: ADMITTED INPATIENT Admitting Provider: Hospitalist Unit Admitted: [facility]
[2017-04-08 22:47] LABS: ABSOLUTE BASOPHILS # (AUTO) 0.1 10^3/uL (0.0-0.2); ABSOLUTE EOSINOPHILS # (AUTO) 0.1 10^3/uL (0.0-0.6); ABSOLUTE LYMPHOCYTES (AUTO) 1.2 10^3/uL (0.5-4.7); ABSOLUTE MONOCYTES (AUTO) 1.2 10^3/uL (0.1-1.4); ABSOLUTE NEUT (AUTO) 11.2 10^3/uL (1.7-8.2); BASOPHILS % (AUTO) 0.7 % (0-2); EOSINOPHILS % (AUTO) 1.1 % (0-6); HEMATOCRIT 35.2 % (37.9-51.0); HEMOGLOBIN 11.2 g/dL (13.5-17.0); HGB HCT DIFFERENCE -1.6; MEAN CORPUSCULAR HEMOGLOBIN 26.2 pg (27.0-33.4); MEAN CORPUSCULAR HGB CONC 31.9 g/dL (32.0-36.0); MEAN CORPUSCULAR VOLUME 82 fl (80-97); MONOCYTES % (AUTO) 8.6 % (3-13); RED BLOOD COUNT 4.28 10^6/uL (4.35-5.55); RED CELL DISTRIBUTION WIDTH 17.5 % (11.5-14.0); SEGMENTED NEUTROPHILS % (AUTO) 80.6 % (42-78); WHITE BLOOD COUNT 13.8 10^3/uL (4.0-10.5)
[2017-04-08 23:05] LABS: ALANINE AMINOTRANSFERASE 35 U/L (21-72); ALBUMIN 3.4 g/dL (3.5-5.0); ALKALINE PHOSPHATASE 175 U/L (38-126); ANION GAP 12 (5-19); ASPARTATE AMINO TRANSFERASE 16 U/L (17-59); BILIRUBIN,DIRECT 0.3 mg/dL (0.0-0.4); BILIRUBIN,TOTAL 0.6 mg/dL (0.2-1.3); BLOOD UREA NITROGEN 16 mg/dL (7-20); CALCIUM 8.6 mg/dL (8.4-10.2); CARBON DIOXIDE 26 mmol/L (22-30); CHLORIDE 96 mmol/L (98-107); CREATININE RESULT 0.44 mg/dL (0.52-1.25); GLUCOSE 197 mg/dL (75-110); POTASSIUM 5.1 mmol/L (3.6-5.0); SODIUM 134.2 mmol/L (137-145); TOTAL PROTEIN 6.4 g/dL (6.3-8.2)
[2017-04-09] MEDS ORDERED: PIPERACILLIN/TAZOBACTAM 3.375 GM VIAL IV ONE (00:12)
[2017-04-09] MEDS ORDERED: VANCOMYCIN HCL INJ 1000 MG VIAL IV ONE (00:12)
[2017-04-09 00:13] LABS: APPEARANCE,URINE SLIGHTLY-CLOUDY; BILIRUBIN,URINE NEGATIVE (NEGATIVE); GLUCOSE, URINE 50 mg/dL (NEGATIVE); KETONES,URINE NEGATIVE (NEGATIVE); PROTEIN,URINE >=500 mg/dL (NEGATIVE); URINE SPECIFIC GRAVITY 1.024
[2017-04-09 00:14] LABS: LEUKOCYTE ESTERASE,URINE NEGATIVE (NEGATIVE); NITRITE,URINE NEGATIVE (NEGATIVE); UROBILINOGEN,URINE NEGATIVE mg/dL (<2.0)
[2017-04-09] MEDS ORDERED: DEXTROSE 50%-WATER 25 GM/50 ML DISP.SYRIN IV PRN ×2 (03:11)
[2017-04-09] MEDS ORDERED: DEXTROSE 40% GEL 15 GM TUBE PO PRN ×2 (03:11)
[2017-04-09] MEDS ORDERED: GLUCAGON,HUMAN RECOMB 1 MG INJ IM PRN (03:11)
[2017-04-09] MEDS ORDERED: GUAIFENESIN SYRP 200 MG/10 ML UDC PO PRN (03:12)
[2017-04-09] MEDS ORDERED: IPRATROPIUM/ALBUTEROL 0.5-2.5 MG/3 ML AMPUL NEB PRN (03:12)
[2017-04-09] MEDS ORDERED: ACETAMINOPHEN 325 MG TABLET PO PRN (03:12)
[2017-04-09] MEDS ORDERED: VANCOMYCIN HCL 0 MG in DEXTROSE 5%-WATER 250 ML IV NR (03:15)
--- NOTE | 2017-04-09 03:35 | PDOC H&P ---
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 Patient has been discussed with emergency room physician who evaluated the patient. Per emergency room physician, patient was intermittently somewhat confused during his initial evaluation. Patient seems more lucid and appropriate at the present time. Denies pain. Has had a mild cough, mostly dry. No nausea vomiting.. Hospitalized on our service the through 06 December of this year with final diagnoses including atrial fibrillation and flutter and eczema, among other diagnoses. History and physical and discharge summary have been reviewed. Laboratory results are listed in [facility] and are reviewed. X-ray summary results are listed below, with full report(s) reviewed. . Social history/personal habits: Resident of [facility]. No use of alcohol tobacco or illicit drugs. . Allergies/adverse reactions are listed in [facility] and are reviewed. Home medications initially autopopulated into [facility] may not accurately reflect patient's true medications, dosages, and/or frequencies. cardiac technician to reconcile medications. Unfortunately, patient not certain of medications/dosages/frequencies. REVIEW OF SYSTEMS: Constitutional: See history and present illness. Eyes: Wears glasses. ENT: No swallowing problems or complaints. Partial hearing loss. Pulmonary: See history and present illness. Cardiovascular: No current complaints, including chest pain. Gastrointestinal: No current complaints, including nausea or vomiting. Skin: Occasional itching problems from eczema. Hematologic: No unusual easy bruising. Neurologic: See history and present illness. Has no motor function in his extremities, but does state that light touch and pain sensations are intact. Musculoskeletal: No joint pain from arthritis. Psychiatric: Mild anxiety. depression; denies suicidal or homicidal ideation. Endocrine: No current complaints, including polyuria. Genitourinary: No current complaints, including dysuria. PHYSICAL EXAMINATION: Neither height nor weight are recorded on the chart. Blood pressure 106/67. Pulse 67 and regular. 98% saturation on room air. Respirations are 17 and unlabored. Temperature 97.9; 99.5 upon arrival. Reportedly received Tylenol at the [place] [facility]. Obese male, appearing a bit younger than stated age. Initially asleep , but awakens easily. Pleasant alert and cooperative. No obvious distress other than somewhat anxious. Skin is warm and dry. No subcutaneous nodules palpated. Has evidence of mild venous stasis changes involving the lower aspect of each lower extremity. No obvious evidence of infection. No evidence of skin breakdown on heels or malleoli. ENT: Hearing grossly normal to normal conversation. Tongue midline on protrusion pink and tacky. Eyes: No scleral icterus. Pupils equal and reactive to light at 4 mm. Cuero conjunctivae. Neck is supple and nontender to gentle active range of motion and palpation. Midline trachea. No palpable thyroid nodule mass enlargement or tenderness. Lymphatic: No palpable cervical or clavicular nodes. Neck and lymphatic exams limited by patient body habitus. Psychiatric: Reasonable insight into acute and chronic medical issues. Oriented to time location and why here. Lungs: Auscultation reveals clear and equal breath sounds bilaterally. No use of accessory respiratory muscles. Cardiovascular: Heart regular rate and rhythm, without gallop murmur or rub. No carotid or abdominal aortic bruits. Bilateral symmetric slightly pitting lower calf, ankle and pedal edema. Not sure I can palpate posterior tibial or dorsalis pedis pulses, but feet are warm and dry with quite acceptable capillary refill. Abdomen:soft somewhat obese nontender with positive bowel sounds. Unable to adequately evaluate abdomen for masses or organomegaly due to body habitus. Extremities: Feet are warm and dry. No calf tenderness to compression. Mild flexion contracture of lower extremities at hips. Neurologic: Absent Babinski. Light touch is intact at feet. Past Medical History Past Medical History: Please refer also to history and physical from 05 December of this year for past medical history. Document has been reviewed. Cardiac Medical History: Reports: Atrial Fibrillation, Coronary Artery Disease, Myocardial Infarction, Hyperlipidema, Hypertension, Heart Murmur Denies: Congestive Heart Failure, DVT, Peripheral Vascular Disease, Pulmonary Embolism Pulmonary Medical History: Reports: Asthma, Bronchitis, Pneumonia, Respiratory Failure Denies: Chronic Obstructive Pulmonary Disease (COPD), Sleep Apnea, Tuberculosis EENT Medical History: Reports: Eyes - Glasses, Ears - Partial hearing loss Denies: Throat Neurological Medical History: Reports: Migraine, Other - Bedbound from progressive muscular dystrophy. Denies: Seizures Endocrine Medical History: Reports: Diabetes Mellitus Type 2 Denies: Hyperthyroidism, Hypothyroidism Renal/ Medical History: Denies: End Stage Renal Disease Malignancy Medical History: Denies: Lung Cancer GI Medical History: Reports: Gastroesophageal Reflux Disease, Hiatal Hernia Denies: Cirrhosis, Crohn's Disease, Hepatitis Musculoskeltal Medical History: Reports: Gout Denies: Fibromyalgia Skin Medical History: Reports: Eczema Psychiatric Medical History: Reports: Depression, General Anxiety Disorder Denies: Alcohol Dependency, Bipolar Disorder, Dementia, Post Traumatic Stress Disorder, Substance Abuse, Tobacco Dependency Hematology: Reports: Anemia Past Surgical History Past Surgical History: Reports: Cholecystectomy, Other - Stents-coronary bilateral lower extremity, renal artery Social History Information Source: Patient, Emergency Med Personnel, [facility] Records Lives with: Alf Smoking Status: Unknown if Ever Smoked Frequency of Alcohol Use: None Hx Recreational Drug Use: No Drugs: None Hx Prescription Drug Abuse: No - Advance Directive Resuscitation Status: Full Code Surrogate healthcare decision maker:: Brother Family History Family History: None, Other - Hereditary progressive muscular dystrophy Parental Family History Reviewed: Yes - Mother of leukemia; father of myocardial infarction. Children Family History Reviewed: NA Sibling(s) Family History Reviewed.: Yes - 2 sisters with cancer Medication/Allergy Home Medications: Acetaminophen [Tylenol 325 mg Tablet] 650 mg PO Q4HP PRN 04/09/17 Albuterol Sulfate [Ventolin HFA MDI 18 GM] 2 puff IH Q4HP PRN 04/09/17 Apixaban [Eliquis 5 mg Tablet] 5 mg PO BID 04/09/17 Aspirin [Aspirin 81 mg Chewable Tablet] 81 mg PO DAILY 04/09/17 Atorvastatin Calcium [Lipitor 80 mg Tablet] 80 mg PO QHS 04/09/17 Calcium Carbonate/Vitamin D3 [Os-Cesario 500+D Tablet] 1 tab PO DAILY 04/09/17 Cepacol Extra Strength Throat Lozenge 1 ea PO Q2HP PRN 04/09/17 Dextran 70/Hypromellose [Artificial Tears Eye Drops] 1 drop OU DAILYP PRN Diltiazem HCl [Cardizem Cd 120 mg Capsule] 120 mg PO DAILY 04/09/17 Duloxetine HCl [Cymbalta] 60 mg PO DAILY 04/09/17 Gabapentin [Neurontin] 800 mg PO Q8 04/09/17 Hydrocodone/Acetaminophen [[place] 5-325 mg Tablet] 1 tab PO Q4HP PRN 04/09/17 Hydrocortisone 1% Lotion 1 applic TOP TID 04/09/17 Hydroxyzine HCl [Atarax 25 mg Tablet] 1 tab PO QHS 04/09/17 Insulin Lispro [Humalog Insulin 100 Unit/1 ml 3 ml Vial] 5 unit SUBCUT BIDP PRN 04/09/17 Isosorbide Mononitrate [Imdur 30 mg Tablet.er] 30 mg PO DAILY 04/09/17 Lactulose [Cephulac 20 gm/30 ml Syrup UD Cup] 20 gm PO BID 04/09/17 Levocetirizine Dihydrochloride [Xyzal] 5 mg PO DAILYP PRN 04/09/17 Loperamide HCl [Loperamide] 2 mg PO Q4HP PRN 04/09/17 Lorazepam [Ativan 0.5 mg Tablet] 0.5 mg PO QHS 04/09/17 Magnesium Oxide [Mag-Ox 400 mg Tablet] 400 mg PO QHS 04/09/17 Metformin HCl [Glucophage] 1,000 mg PO WSUPPER 04/09/17 Metoprolol Tartrate [Lopressor 100 mg Tablet] 100 mg PO Q12 04/09/17 Nitroglycerin [Nitrostat] 0.4 mg SL Q5MP PRN 04/09/17 Promethazine HCl [Phenergan 25 mg Tablet] 25 mg PO Q4HP PRN 04/09/17 Psyllium Husk [Metamucil] 0.52 gm PO BIDP PRN 04/09/17 Simethicone [Mylicon 80 mg Chewable Tablet] 80 mg PO DAILYP PRN 04/09/17 Sitagliptin Phosphate [Januvia] 100 mg PO DAILY 04/09/17 Tamsulosin HCl [Flomax 0.4 mg Cap.sr] 0.4 mg PO QHS 04/09/17 Allergies/Adverse Reactions: lisinopril Allergy (Unknown, Verified 01/16/17 15:10) Sulfa (Sulfonamide Antibiotics) Allergy (Unknown, Verified 01/16/17 15:10) Physical Exam Vital Signs: Temp Pulse Resp BP Pulse Ox 97.9 F 64 15 106/67 94 04/09/17 01:26 04/08/17 21:45 04/09/17 02:30 04/09/17 02:30 04/09/17 02:30 Results Impressions: Chest X-Ray 04/08/17 22:09 IMPRESSION: Left basilar density is noted above Assessment & Plan - Diagnosis (1) Acute encephalopathy Is this a current diagnosis for this admission?: YesPlan: Likely secondary to underlying pneumonia. Should clear with time and treatment. (2) Hyperkalemia Is this a current diagnosis for this admission?: YesPlan: Mild. Follow-up chemistry. (3) LLL pneumonia Qualifiers: Pneumonia type: due to unspecified organism Qualified Code(s): J18.1 - Lobar pneumonia, unspecified organism Is this a current diagnosis for this admission?: YesPlan: Patient will be admitted under pneumonia protocol. Incentive spirometry twice a day. PRN DuoNeb's. Antibiotics will consist of intravenous doxycycline, Rocephin, and intravenous vancomycin. Pharmacy to assist with dosing. I strongly encouraged patient to notify staff should patient feel that his breathing is worsening. Patient is a full code. Knee high SCDs for DVT prophylaxis; with patient on systemic anticoagulation, no need for Lovenox or heparin at this point in time. Impression and plans were discussed with patient, who concurs. Time spent in evaluation and management of patient: 61 minutes. (4) Chronic anticoagulation Is this a current diagnosis for this admission?: YesPlan: Resume home medications as appropriate once these have been determined and reviewed. (5) Atrial fibrillation Qualifiers: Atrial fibrillation type: unspecified Qualified Code(s): I48.91 - Unspecified atrial fibrillation Is this a current diagnosis for this admission?: YesPlan: Resume home medications as appropriate once these have been determined and reviewed. (6) Diabetes mellitus type 2 in obese Is this a current diagnosis for this admission?: YesPlan: Diabetic cardiac diet. Accu-Cheks with appropriate sliding scale coverage. Resume home medications as appropriate once these have been determined and reviewed. (7) Hyperlipidemia Qualifiers: Hyperlipidemia type: unspecified Qualified Code(s): E78.5 - Hyperlipidemia, unspecified Is this a current diagnosis for this admission?: YesPlan: Resume home medications as appropriate once these have been determined and reviewed. (8) Stented coronary artery Is this a current diagnosis for this admission?: YesPlan: Resume home medications as appropriate once these have been determined and reviewed. - Inpatient Certification Based on my medical assessment, after consideration of the patient's comorbidities, presenting symptoms, or acuity I expect that the services needed warrant INPATIENT care.: Yes I certify that my determination is in accordance with my understanding of Medicare's requirements for reasonable and necessary INPATIENT services [42 CFR 412.3e].: Yes Medical Necessity: Significant Comorbidiites Make Outpatient Treatment Too Risky , Need Close Monitoring Due to Risk of Patient Decompensation, Need For Continuous Telemetry Monitoring, Need for Nebulizer Therapy and Monitoring of Response, Need for IV Antibiotics, Risk of Complication if Not Cared For in Hospital Post Hospital Care: D/C or Transfer Summary
[2017-04-09 06:48] LABS: ABSOLUTE BASOPHILS # (AUTO) 0.1 10^3/uL (0.0-0.2); ABSOLUTE EOSINOPHILS # (AUTO) 0.3 10^3/uL (0.0-0.6); ABSOLUTE LYMPHOCYTES (AUTO) 1.3 10^3/uL (0.5-4.7); ABSOLUTE MONOCYTES (AUTO) 1.3 10^3/uL (0.1-1.4); ABSOLUTE NEUT (AUTO) 7.9 10^3/uL (1.7-8.2); EOSINOPHILS % (AUTO) 2.4 % (0-6); HEMATOCRIT 34.8 % (37.9-51.0); HEMOGLOBIN 10.9 g/dL (13.5-17.0); HGB HCT DIFFERENCE -2.1; LYMPHOCYTES % (AUTO) 11.7 % (13-45); MEAN CORPUSCULAR HEMOGLOBIN 25.8 pg (27.0-33.4); MEAN CORPUSCULAR HGB CONC 31.3 g/dL (32.0-36.0); MEAN CORPUSCULAR VOLUME 83 fl (80-97); MONOCYTES % (AUTO) 11.8 % (3-13); RED BLOOD COUNT 4.22 10^6/uL (4.35-5.55); RED CELL DISTRIBUTION WIDTH 17.9 % (11.5-14.0); SEGMENTED NEUTROPHILS % (AUTO) 73.1 % (42-78); WHITE BLOOD COUNT 10.8 10^3/uL (4.0-10.5)
[2017-04-09 06:50] LABS: PROTHROMBIN TIME 17.9 SEC (11.4-15.4)
[2017-04-09 06:51] LABS: PARTIAL THROMBOPLASTIN TIME 42.2 SEC (23.5-35.8)
[2017-04-09 06:57] LABS: ANION GAP 9 (5-19); BLOOD UREA NITROGEN 17 mg/dL (7-20); CALCIUM 8.2 mg/dL (8.4-10.2); CARBON DIOXIDE 29 mmol/L (22-30); CHLORIDE 98 mmol/L (98-107); GLUCOSE 192 mg/dL (75-110); MAGNESIUM 2.3 mg/dL (1.6-2.3); POTASSIUM 4.6 mmol/L (3.6-5.0); SODIUM 135.6 mmol/L (137-145)
[2017-04-09] MEDS ORDERED: DOXYCYCLINE HYCLATE 100 MG in DEXTROSE 5%-WATER 250 ML IV SCH (10:00)
[2017-04-09] MEDS ORDERED: CEFTRIAXONE 1 GM/D5W RTU 50 ML IV SCH (10:00)
[2017-04-09] MEDS ORDERED: LEVALBUTEROL HCL NEB 0.63 MG/3 ML AMPUL NEB PRN (10:02)
[2017-04-09] MEDS: GUAIFENESIN 600 MG TABLET.SA PO SCH ×2 (10:33→22:41)
--- NOTE | 2017-04-09 10:48 | PROGRESS NOTE E ---
Progress Note NAME: MEAGHAN SALAMANCA : 1945 AGE: 71Y DATE: 04/09/2017 ROOM: 308 SUBJECTIVE: The patient was seen earlier today on rounds. The patient denies any vomiting. No diarrhea, dizziness, chest pain. No fever or chills. The patient does admit to some shortness of breath and does become a little dyspneic with conversation. The patient also admits to intermittent nausea. The patient denies any sputum production at this point. I had a discussion with the patient regarding code status and advanced care planning. The patient is inquisitive to such, but at this time remains a FULL CODE. We will proceed with palliative care discussion given his chronically debilitated state. REVIEW OF SYSTEMS: The rest of the review of systems negative. MEDICATIONS: Reviewed. OBJECTIVE: GENERAL: The patient is a very pleasant 71-year-old male who is awake, alert. He is oriented to person, place, time and situation. He is a little delayed. He does not appear to be in any acute distress. VITAL SIGNS: Temperature 98.1, pulse 68, respirations 16, blood pressure 145/66 and oxygen saturation is 96% on room air. SKIN: Warm and dry. No rash, not diaphoretic. HEENT: Pupils are equal, round and reactive to light and accommodation. There is no JVP. CARDIOVASCULAR: Heart is regularly. No murmurs or rubs. LUNGS: The patient does have rhonchorous lung sounds on the right side, but otherwise symmetrical and labored. ABDOMEN: Soft, nontender, nondistended. BACK: No CVA tenderness. EXTREMITIES: No clubbing, cyanosis, edema. PSYCHIATRIC: Appropriate affect, pleasant mood. DIAGNOSTICS: Lab values are as follows: Hematology obtained on 04/09/2017: WBCs are 10.8, hemoglobin is 10.9, hematocrit is 34.8, platelet count is 173,000. Chemistry obtained on 04/09/2017: Sodium is 135, potassium 4.6, chloride 98, carbon dioxide 29, BUN 17, creatinine 1.40, glucose 192, calcium is 8.2, magnesium is 2.3. IMPRESSION/PLAN: 1. LEFT BASILAR PNEUMONIA. We will continue broad spectrum coverage for now as the patient does reside in a facility; however, we will add addition anaerobe coverage given the patient's progressive muscular dystrophy and consult Speech for swallow evaluation as well. 2. SIRS, SECOND TO NUMBER 1. The patient no longer has a temperature. Blood pressure did improve with bolus. We will follow. White count has trended down. 3. PAROXYSMAL ATRIAL FIBRILLATION. The patient is rate controlled. We will continue present medication once reconcilable. 4. CORONARY ARTERY DISEASE. We will continue the patient's home medications. 5. CHRONIC ANTICOAGULATION. We will continue the patient's home medications once reconcilable. 6. DIABETES MELLITUS TYPE 2 AND OBESITY. We will continue home medications, as well as sliding scale coverage. 7. MUSCULAR DYSTROPHY. The patient does appear to be chronically bed-bound at this time. Given the patient's chronic debility and quality of life, we will consult palliative care for goal setting. 8. DVT PROPHYLAXIS. The patient is chronically anticoagulated. DISPOSITION: The patient is a FULL CODE. Pending the patient's symptomatology and diagnostic findings, we will reevaluate in the a.m. TIME: Time spent on this followup visit including assessment, plan, physical examination, patient education, and extensive chart review was 35 minutes. DICTATING PHYSICIAN: FRED CORDON NP [id number] PHY#: [id number] ID: [id number] JOB#: [id number] ACCT: [id number] cc: >
[2017-04-09] MEDS: VANCOMYCIN HCL 1,500 MG in DEXTROSE 5%-WATER 250 ML IV SCH (11:00)
[2017-04-09] MEDS: INSULIN LISPRO 100 UNIT/ML 3 ML VIAL SUBCUT PRN ×2 (12:24→15:42)
[2017-04-09] MEDS: PIPERACILLIN SODIUM/TAZOBACTAM 4.5 GM in NORMAL SALINE 100 ML IV SCH ×2 (14:10→20:50)
[2017-04-09] MEDS: LEVALBUTEROL HCL NEB 1.25 MG/3 ML AMPUL NEB SCH ×2 (16:25→23:57)
[2017-04-09] MEDS ORDERED: PROMETHAZINE HCL 25 MG TABLET PO PRN (16:54)
[2017-04-09] MEDS ORDERED: DEXTRAN OU PRN (16:54)
[2017-04-09] MEDS ORDERED: ALBUTEROL SULFATE HFA (90 MCG/PUFF) 8 GM MDI (1 MDI/ER DISP) IH PRN (16:54)
[2017-04-09] MEDS ORDERED: (PENDING PHARMACY ID) (Psyllium Husk [Metamucil] 0.52 GM) PO PRN (16:54)
[2017-04-09] MEDS ORDERED: (PENDING PHARMACY ID) (Loperamide Hcl [Loperamide] 2 MG) PO PRN (16:54)
[2017-04-09] MEDS ORDERED: NITROGLYCERIN 0.4 MG/TAB 25 TAB/BOTTLE SL PRN (16:54)
[2017-04-09] MEDS ORDERED: HYPROMELLOSE OU PRN (16:54)
[2017-04-09] MEDS ORDERED: SIMETHICONE 80 MG TAB.CHEW PO PRN (16:54)
[2017-04-09] MEDS ORDERED: [UNRECOGNIZED DRUG - OTHER] PO PRN (16:54)
[2017-04-09] MEDS ORDERED: PSYLLIUM SEED-SF 5.85 GM PACKET PO PRN ×2 (17:06)
[2017-04-09] MEDS ORDERED: POLYVINYL ALCOHOL 1.4% OPH SOLN 15 ML OU PRN (17:09)
[2017-04-09] MEDS ORDERED: BENZOCAINE/MENTHOL SORE THROAT LOZENGE BUCCAL PRN (17:09)
[2017-04-09] MEDS ORDERED: CETIRIZINE 5 MG TABLET PO PRN (17:17)
[2017-04-09] MEDS: METFORMIN HCL 500 MG TABLET PO SCH (17:29)
[2017-04-09] MEDS: APIXABAN 5 MG TABLET PO SCH (17:29)
[2017-04-09] MEDS: LACTULOSE SYRUP 20 GM/30 ML UDCUP PO SCH (17:29)
[2017-04-09] MEDS: DILTIAZEM HCL 120 MG CAP.SR.24H PO SCH (17:31)
[2017-04-09] MEDS: HYDROCORTISONE 1% CREAM 28.35 GM TP SCH (17:52)
[2017-04-09] MEDS ORDERED: HYDROCORTISONE 1% TOP SCH (18:00)
[2017-04-09] MEDS ORDERED: (PENDING PHARMACY ID) (Hydroxyzine Hcl [Atarax 25 Mg Tablet] 1 TAB) PO SCH (22:00)
[2017-04-09] MEDS: HYDROCODONE/ACETAMINOPHEN 5-325 MG TABLET PO PRN (22:16)
[2017-04-09] MEDS: GABAPENTIN 400 MG CAPSULE PO SCH (22:41)
[2017-04-09] MEDS: METOPROLOL TARTRATE 100 MG TABLET PO SCH (22:42)
[2017-04-09] MEDS: LORAZEPAM 0.5 MG TABLET PO SCH (22:42)
[2017-04-09] MEDS: MONTELUKAST SODIUM 10 MG TABLET PO SCH (22:42)
[2017-04-09] MEDS: MAGNESIUM OXIDE 400 MG TABLET PO SCH (22:42)
[2017-04-09] MEDS: TAMSULOSIN HCL 0.4 MG CAP.SR.24H PO SCH (22:43)
[2017-04-09] MEDS: ATORVASTATIN CALCIUM 80 MG TABLET PO SCH (22:43)
[2017-04-09] MEDS: HYDROXYZINE HCL 10 MG TABLET PO SCH (22:45)
--- NOTE | 2017-04-09 23:13 | Palliative Consultation Report ---
Consultation From:: ELIECER DUPREE - [facility] HPI: Palliative Care visit 12:30-12;55 PM 04/09/17 Appreciate palliative consult request for this 71 year old patient who has been admitted from [facility] for AMS changes related to pneumonia. He has been a patietn at [place] due to muscular dystrophy in addtion to comorbid conditions of CAD, Atrial Fib, HTN , and HLD. He was admitted for a similar problem in November of this year. Mr. Regalado reports that he is feeling better and fels his care is good, His main complaint is haivng to pay for and use his incentive spirometer. Witht he severe weakness of his arms, he cannot hold the device and says the staff is too busy here to help him and certainly too busy at [facility] to help him use it. This patient is listed as a full code now. We had a long talk about the possibility of one day in the future, the pneumonia being so bad that he might need intubation and artificial ventilation, or even CPR. I asked him if he had thought about this issue, and we discussed in detail the process, the need for ICU/ LTAC and the reality of needing sedation etc. He says he still wants to have CPR and be intubated if needed. He told me that he has discuxxed it with his brother who agrees with him. He says his brother would be ablt ot stop treatment when he felt it was futile . I explained the MOST form to him and reviewed it. He did not want to complete it today. I asked him to discuss with his brother and I would be happy to return to complete so his brother would have it to help him remember exactly what patient wanted and to support his wishes. He said he would think about it. We also discussed placement of feeding tube but he did not think that would be necessary any time soon. I told him I would be happy to visit with him in SNF if doctor there wrote referral. He was receptive to me returning while he is still at [facility]. He denies any symptoms that are not being addressed and wants to go back to [place] when discharged.. Onset: Last week Onset/Duration: Gradual Quality of Pain: No pain Severity: None Pain Level: Denies Associated Symptoms: Productive cough, Hoarseness, Shortness of breath Past Medical History(Consults) - General Information Source: Patient, [facility] Records Home Medications: Acetaminophen [Tylenol 325 mg Tablet] 650 mg PO Q4HP PRN 04/09/17 Albuterol Sulfate [Ventolin HFA MDI 18 GM] 2 puff IH Q4HP PRN 04/09/17 Apixaban [Eliquis 5 mg Tablet] 5 mg PO BID 04/09/17 Aspirin [Aspirin 81 mg Chewable Tablet] 81 mg PO DAILY 04/09/17 Atorvastatin Calcium [Lipitor 80 mg Tablet] 80 mg PO QHS 04/09/17 Calcium Carbonate/Vitamin D3 [Os-Cesario 500+D Tablet] 1 tab PO DAILY 04/09/17 Cepacol Extra Strength Throat Lozenge 1 ea PO Q2HP PRN 04/09/17 Dextran 70/Hypromellose [Artificial Tears Eye Drops] 1 drop OU DAILYP PRN Diltiazem HCl [Cardizem Cd 120 mg Capsule] 120 mg PO DAILY 04/09/17 Duloxetine HCl [Cymbalta] 60 mg PO DAILY 04/09/17 Gabapentin [Neurontin] 800 mg PO Q8 04/09/17 Hydrocodone/Acetaminophen [Bouse 5-325 mg Tablet] 1 tab PO Q4HP PRN 04/09/17 Hydrocortisone 1% Lotion 1 applic TOP TID 04/09/17 Hydroxyzine HCl [Atarax 25 mg Tablet] 1 tab PO QHS 04/09/17 Insulin Lispro [Humalog Insulin 100 Unit/1 ml 3 ml Vial] 5 unit SUBCUT BIDP PRN 04/09/17 Isosorbide Mononitrate [Imdur 30 mg Tablet.er] 30 mg PO DAILY 04/09/17 Lactulose [Cephulac 20 gm/30 ml Syrup UD Cup] 20 gm PO BID 04/09/17 Levocetirizine Dihydrochloride [Xyzal] 5 mg PO DAILYP PRN 04/09/17 Loperamide HCl [Loperamide] 2 mg PO Q4HP PRN 04/09/17 Lorazepam [Ativan 0.5 mg Tablet] 0.5 mg PO QHS 04/09/17 Magnesium Oxide [Mag-Ox 400 mg Tablet] 400 mg PO QHS 04/09/17 Metformin HCl [Glucophage] 1,000 mg PO WSUPPER 04/09/17 Metoprolol Tartrate [Lopressor 100 mg Tablet] 100 mg PO Q12 04/09/17 Nitroglycerin [Nitrostat] 0.4 mg SL Q5MP PRN 04/09/17 Promethazine HCl [Phenergan 25 mg Tablet] 25 mg PO Q4HP PRN 04/09/17 Psyllium Husk [Metamucil] 0.52 gm PO BIDP PRN 04/09/17 Simethicone [Mylicon 80 mg Chewable Tablet] 80 mg PO DAILYP PRN 04/09/17 Sitagliptin Phosphate [Januvia] 100 mg PO DAILY 04/09/17 Tamsulosin HCl [Flomax 0.4 mg Cap.sr] 0.4 mg PO QHS 04/09/17 Allergies/Adverse Reactions: lisinopril Allergy (Unknown, Verified 01/16/17 15:10) Sulfa (Sulfonamide Antibiotics) Allergy (Unknown, Verified 01/16/17 15:10) - Social History Lives with: Skilled Nursing Family History: None, Other - Hereditary progressive muscular dystrophy Parental Family History Reviewed: No Children Family History Reviewed: No Sibling(s) Family History Reviewed.: No Smoking Status: Never Smoker Frequency of Alcohol Use: None Hx Recreational Drug Use: No Drugs: None Hx Prescription Drug Abuse: No - Past Medical History Cardiac Medical History: Reports: Hx Atrial Fibrillation, Hx Coronary Artery Disease, Hx Heart Attack, Hx Hypercholesterolemia, Hx Hypertension, Hx Heart Murmur Denies: Hx Congestive Heart Failure, Hx DVT, Hx Peripheral Vascular Disease, Hx Pulmonary Embolism Pulmonary Medical History: Reports: Hx Asthma, Hx Bronchitis, Hx Pneumonia, Hx Respiratory Failure Denies: Hx COPD, Hx Sleep Apnea, Hx Tuberculosis EENT Medical History: Reports: Eyes - Glasses, Ears - Partial hearing loss Denies: Throat Neurological Medical History: Reports: Hx Cerebrovascular Accident, Hx Migraine , Other - Bedbound from progressive muscular dystrophy.. Denies: Hx Seizures Endocrine Medical History: Reports: Hx Diabetes Mellitus Type 2. Denies: Hx Graves' Disease, Hx Hyperthyroidism, Hx Hypothyroidism Renal/ Medical History: Denies: Hx Benign Prostatic Hyperplasia, Hx End Stage Renal Disease, Hx Kidney Stones, Hx Peritoneal Dialysis Malignancy Medical History: Denies Hx Lung Cancer GI Medical History: Reports: Hx Gastroesophageal Reflux Disease, Hx Hiatal Hernia, Hx Irritable Bowel, Hx Ulcer. Denies: Hx Cirrhosis, Hx Crohn's Disease , Hx Hepatitis, Hx Liver Failure Musculoskeltal Medical History: Reports Hx Arthritis - GOUT, Denies Hx Fibromyalgia, Reports Hx Gout, Denies Hx Multiple Sclerosis, Reports Hx Muscular Dystrophy Skin Medical History: Reports Hx Eczema Psychiatric Medical History: Reports: Hx Anxiety, Hx Depression Denies: Hx Bipolar Disorder, Hx Dementia, Hx Post Traumatic Stress Disorder, Hx Schizophrenia Traumatic Medical History: Denies: Hx Fractures Infectious Medical History: Denies: Hx Hepatitis Hematology: Reports: Anemia - Surgical History Past Surgical History: Reports: Hx Cholecystectomy, Other - Stents-coronary bilateral lower extremity, renal artery. Denies: Hx Colostomy, Hx Pacemaker Review of systems Constitutional: Weakness Cardiovascular: Chest pain, Orthopnea, Dyspnea Respiratory: Hurts to breath Musculoskeltal: Joint pain Skin: No symptoms reported Neurological/Psychological: Confusion, Anxiety - Was very confused when he came to hospital, oriented now Ojective:Exam Vital Signs: Temp Pulse Resp BP Pulse Ox 98.0 F 97 20 146/64 H 95 04/09/17 20:08 04/09/17 20:08 04/09/17 20:08 04/09/17 20:08 04/09/17 20:08 Intake & Output 04/08/17 04/09/17 04/10/17 06:59 06:59 06:59 Intake Total 25 924 Output Total 500 1637 Balance -475 -713 Weight 94.5 kg - General General Appearance: Alert, Anxious In distress: None - HEENT Head: Normocephalic Conjunctiva: Normal Ears: Normal Nasal: Normal Mouth/Lips: Normal Mucous membrane: Normal Pharynx: Normal - Neck Neck: Other Neck Note: stiffness from muscular dystrohy - Respiratory Respiratory Status: No respiratory distress Chest Status: Pain with cough Breath sounds: Decreased air movement - Extremities Upper extremity: Other - unable to use due to muscular dystrophy - Psychological Associated symptoms: Normal affect, Anxious Objective-Diagnostic Laboratory: 04/09/17 06:34 04/09/17 06:34 04/09/17 04/09/17 06:34 06:34 WBC 10.8 H RBC 4.22 L Hgb 10.9 L Hct 34.8 L MCV 83 MCH 25.8 L MCHC 31.3 L RDW 17.9 H Plt Count 173 Seg Neutrophils % 73.1 Lymphocytes % 11.7 L Monocytes % 11.8 Eosinophils % 2.4 Basophils % 1.0 Absolute Neutrophils 7.9 Absolute Lymphocytes 1.3 Absolute Monocytes 1.3 Absolute Eosinophils 0.3 Absolute Basophils 0.1 Sodium 135.6 L Potassium 4.6 Chloride 98 Carbon Dioxide 29 Anion Gap 9 BUN 17 Creatinine 0.40 L Est GFR ( Amer) > 60 Est GFR (Non-Af Amer) > 60 Glucose 192 H Calcium 8.2 L Magnesium 2.3 Plan and Recommendation Plan and Recommendation: As reported above. Patient wants to remain full code, did not want to complete MOST form and as asked his brother to make end of life decisions for him when he cannot. His symptoms are well controlled and he wants to returnt o SNF at discharge. I offered to follow with [facility] if referral made. Will also follow while he is here to see if he will complete MOST form to help his brother meke the EOL decisions he may need to make or in case brother cannot do it, Appreciate opportunity to participate in care. - Time Spent with Patient Time spent with patient: 15 to 30 Minutes Time: 20 min with patient, 10 min chart review and consult with provider. Greater then 50% spent on Counseling & Coordination of Care: yes
[2017-04-10] MEDS: VANCOMYCIN HCL 1,500 MG in DEXTROSE 5%-WATER 250 ML IV SCH ×2 (00:32→11:31)
[2017-04-10] MEDS: PIPERACILLIN SODIUM/TAZOBACTAM 4.5 GM in NORMAL SALINE 100 ML IV SCH ×4 (02:45→21:04)
[2017-04-10 05:31] LABS: ANION GAP 10 (5-19); BLOOD UREA NITROGEN 13 mg/dL (7-20); CALCIUM 8.2 mg/dL (8.4-10.2); CARBON DIOXIDE 25 mmol/L (22-30); CHLORIDE 104 mmol/L (98-107); CREATININE RESULT 0.34 mg/dL (0.52-1.25); GLUCOSE 156 mg/dL (75-110); MAGNESIUM 2.2 mg/dL (1.6-2.3); POTASSIUM 4.2 mmol/L (3.6-5.0); SODIUM 138.7 mmol/L (137-145)
[2017-04-10] MEDS: GABAPENTIN 400 MG CAPSULE PO SCH ×3 (06:14→22:18)
[2017-04-10] MEDS: LEVALBUTEROL HCL NEB 1.25 MG/3 ML AMPUL NEB SCH ×3 (08:19→23:44)
[2017-04-10] MEDS: METOPROLOL TARTRATE 100 MG TABLET PO SCH ×2 (09:41→22:19)
[2017-04-10] MEDS: DULOXETINE HCL 30 MG CAPSULE.DR PO SCH (09:41)
[2017-04-10] MEDS: ISOSORBIDE MONONITRATE 30 MG TAB.ER.24H PO SCH (09:42)
[2017-04-10] MEDS: GUAIFENESIN 600 MG TABLET.SA PO SCH ×2 (09:43→22:19)
[2017-04-10] MEDS: CALCIUM CARBONATE 250 MG/VITAMIN D3 125 UNIT TABLET PO SCH (09:43)
[2017-04-10] MEDS: ASPIRIN 81 MG TABLET, CHEWABLE PO SCH (09:44)
[2017-04-10] MEDS: APIXABAN 5 MG TABLET PO SCH ×2 (09:45→17:54)
[2017-04-10] MEDS: SITAGLIPTIN PHOSPHATE 50 MG TABLET PO SCH (09:45)
[2017-04-10] MEDS: LACTULOSE SYRUP 20 GM/30 ML UDCUP PO SCH ×2 (09:45→18:00)
[2017-04-10] MEDS: HYDROCORTISONE 1% CREAM 28.35 GM TP SCH ×3 (09:50→17:55)
[2017-04-10] MEDS ORDERED: (PENDING PHARMACY ID) (Calcium Carbonate/Vitamin D3 [Os-Cal 500-Vit D3 200 Caplet] 1 TAB) PO SCH (10:00)
[2017-04-10] MEDS: INSULIN LISPRO 100 UNIT/ML 3 ML VIAL SUBCUT PRN ×2 (12:17→17:53)
[2017-04-10] MEDS ORDERED: BISACODYL 5 MG TABEC PO PRN (12:51)
--- NOTE | 2017-04-10 13:46 | PDOC PROGRESS REPORT ---
Subjective Progress Note for:: 04/10/17 Subjective:: Patient is napping when visited, but easily aroused. Patient denies chest pain, shortness of breath, cough, fever, chills, nausea, vomiting, diarrhea, abdominal pain. Patient reports He feels improved from yesterday. Patient is unable to use incentive spirometer or flutter valve or feed self secondary to spinal muscular atrophy. Physical Exam Vital Signs: Temp Pulse Resp BP Pulse Ox 98.4 F 75 16 143/59 H 96 04/09/17 23:50 04/10/17 02:00 04/10/17 00:00 04/09/17 23:50 04/10/17 00:00 Intake & Output 04/09/17 04/10/17 04/11/17 06:59 06:59 06:59 Intake Total 25 2108 Output Total 500 3187 Balance -475 -1079 Weight 94.5 kg 94.2 kg Exam: General:No acute respiratory distress, Easily arousable, alert, oriented 3 HEENT: AT/NC, PERRL,EOMI, oropharynx is dry, pink, no scleral icterus, no conjunctival injection Neck: No JVD, trachea midline Chest: Diminished left lower lobe, otherwise clear CV: IRR, normal S1 and S2, 2/6 SM; no rub or gallop Abdomen: Soft, nontender to palpation, mildly distended, diminished bowel sounds ; no rebound, rigidity, or guarding Extremities: No cyanosis, clubbing; woody, edematous Neuro: functional quadriparesis, Psych: Normal mood and affect Results Laboratory Results: 04/09/17 06:34 04/10/17 04:33 04/10/17 04:33 Sodium 138.7 Potassium 4.2 Chloride 104 Carbon Dioxide 25 Anion Gap 10 BUN 13 Creatinine 0.34 L Est GFR ( Amer) > 60 Est GFR (Non-Af Amer) > 60 Glucose 156 H Calcium 8.2 L Magnesium 2.2 Impressions: Chest X-Ray 04/08/17 22:09 IMPRESSION: Left basilar density is noted above Assessment & Plan - Diagnosis (1) LLL pneumonia Qualifiers: Pneumonia type: due to unspecified organism Qualified Code(s): J18.1 - Lobar pneumonia, unspecified organism Is this a current diagnosis for this admission?: YesPlan: Patient currently being treated for healthcare associated pneumonia [facility]. Patient on vancomycin and Zosyn day #12/29. Pending sputum culture. Pulmonary toileting, and will consider transitioning to chest physiotherapy versus flutter valve. (2) Spinal muscular atrophy type III Is this a current diagnosis for this admission?: YesPlan: Vicodin as needed pain. Have readdressed patients CODE STATUS with him and he elects to be a full code. (3) Acute encephalopathy Is this a current diagnosis for this admission?: YesPlan: Improved. Likely secondary to pneumonia. (4) Hyperkalemia Is this a current diagnosis for this admission?: YesPlan: Improved, likely secondary to respiratory acidosis. Will continue to monitor (5) Atrial fibrillation and flutter Is this a current diagnosis for this admission?: YesPlan: Patient is on metoprolol and Eliquis currently rate controlled. (6) Chronic anticoagulation Is this a current diagnosis for this admission?: YesPlan: Continue Eliquis (7) Coronary artery disease Qualifiers: Coronary Disease-Associated Artery/Lesion type: [place] artery [place] vs. transplanted heart: [place] heart Associated angina: angina presence unspecified Qualified Code(s): I25.10 - Atherosclerotic heart disease of [place] coronary artery without angina pectoris Is this a current diagnosis for this admission?: YesPlan: On metoprolol and Eliquis PRN nitroglycerin (8) Diabetes mellitus type 2 in obese Is this a current diagnosis for this admission?: YesPlan: Continue metformin, Januvia, and sliding scale insulin. Currently fair control of sugar. (9) Hyperlipidemia Qualifiers: Hyperlipidemia type: unspecified Qualified Code(s): E78.5 - Hyperlipidemia, unspecified Is this a current diagnosis for this admission?: YesPlan: Continue lovasa. Hold statin for underlying spinal muscular atrophy. (10) Obesity (BMI 30.0-34.9) Is this a current diagnosis for this admission?: Yes - Time Time Spent with patient: 25-34 minutes Medications reviewed and adjusted accordingly: Yes Anticipated discharge: SNF Within: within 48 hours - Inpatient Certification Based on my medical assessment, after consideration of the patient's comorbidities, presenting symptoms, or acuity I expect that the services needed warrant INPATIENT care.: Yes I certify that my determination is in accordance with my understanding of Medicare's requirements for reasonable and necessary INPATIENT services [42 CFR 412.3e].: Yes Medical Necessity: Need for Nebulizer Therapy and Monitoring of Response, Need for IV Antibiotics Post Hospital Care: D/C Reference Services Head Documentation
[2017-04-10] MEDS ORDERED: BISACODYL 5 MG TABEC PO ONE (14:15)
[2017-04-10] MEDS: ACETAMINOPHEN 325 MG TABLET PO PRN ×2 (14:24→22:17)
[2017-04-10] MEDS: POLYETHYLENE GLYCOL 3350 POWDER 17 GM/1 PACKET PO SCH (14:27)
[2017-04-10] MEDS: METFORMIN HCL 500 MG TABLET PO SCH (17:53)
[2017-04-10] MEDS: DOCUSATE SODIUM 100 MG CAPSULE PO SCH (17:53)
[2017-04-10] MEDS: DILTIAZEM HCL 120 MG CAP.SR.24H PO SCH (17:54)
[2017-04-10] MEDS: HYDROXYZINE HCL 10 MG TABLET PO SCH (22:18)
[2017-04-10] MEDS: MONTELUKAST SODIUM 10 MG TABLET PO SCH (22:18)
[2017-04-10] MEDS: LORAZEPAM 0.5 MG TABLET PO SCH (22:18)
[2017-04-10] MEDS: ATORVASTATIN CALCIUM 80 MG TABLET PO SCH (22:18)
[2017-04-10] MEDS: TAMSULOSIN HCL 0.4 MG CAP.SR.24H PO SCH (22:20)
[2017-04-10] MEDS: MAGNESIUM OXIDE 400 MG TABLET PO SCH (22:20)
[2017-04-11] MEDS: VANCOMYCIN HCL 1,500 MG in DEXTROSE 5%-WATER 250 ML IV SCH (00:49)
[2017-04-11] MEDS: PIPERACILLIN SODIUM/TAZOBACTAM 4.5 GM in NORMAL SALINE 100 ML IV SCH ×4 (03:50→21:17)
[2017-04-11] MEDS: GABAPENTIN 400 MG CAPSULE PO SCH ×3 (06:02→21:24)
[2017-04-11] MEDS: LEVALBUTEROL HCL NEB 1.25 MG/3 ML AMPUL NEB SCH ×3 (08:01→23:10)
[2017-04-11 10:14] LABS: ABSOLUTE BASOPHILS # (AUTO) 0.1 10^3/uL (0.0-0.2); ABSOLUTE EOSINOPHILS # (AUTO) 0.4 10^3/uL (0.0-0.6); ABSOLUTE MONOCYTES (AUTO) 0.4 10^3/uL (0.1-1.4); ABSOLUTE NEUT (AUTO) 7.2 10^3/uL (1.7-8.2); BASOPHILS % (AUTO) 0.9 % (0-2); HEMATOCRIT 32.9 % (37.9-51.0); HEMOGLOBIN 10.3 g/dL (13.5-17.0); LYMPHOCYTES % (AUTO) 10.6 % (13-45); MEAN CORPUSCULAR HEMOGLOBIN 26.1 pg (27.0-33.4); MEAN CORPUSCULAR HGB CONC 31.5 g/dL (32.0-36.0); MEAN CORPUSCULAR VOLUME 83 fl (80-97); MONOCYTES % (AUTO) 4.5 % (3-13); RED BLOOD COUNT 3.96 10^6/uL (4.35-5.55); RED CELL DISTRIBUTION WIDTH 17.9 % (11.5-14.0)
[2017-04-11 10:36] LABS: CREATININE RESULT 0.36 mg/dL (0.52-1.25)
[2017-04-11] MEDS: CALCIUM CARBONATE 250 MG/VITAMIN D3 125 UNIT TABLET PO SCH (12:04)
[2017-04-11] MEDS: DULOXETINE HCL 30 MG CAPSULE.DR PO SCH (12:05)
[2017-04-11] MEDS: METOPROLOL TARTRATE 100 MG TABLET PO SCH ×2 (12:05→21:20)
[2017-04-11] MEDS: ISOSORBIDE MONONITRATE 30 MG TAB.ER.24H PO SCH (12:06)
[2017-04-11] MEDS: ASPIRIN 81 MG TABLET, CHEWABLE PO SCH (12:06)
[2017-04-11] MEDS: APIXABAN 5 MG TABLET PO SCH ×2 (12:06→18:16)
[2017-04-11] MEDS: SITAGLIPTIN PHOSPHATE 50 MG TABLET PO SCH (12:07)
[2017-04-11] MEDS: HYDROCORTISONE 1% CREAM 28.35 GM TP SCH ×3 (12:07→18:20)
[2017-04-11] MEDS: GUAIFENESIN 600 MG TABLET.SA PO SCH ×2 (12:07→21:19)
[2017-04-11] MEDS: LACTULOSE SYRUP 20 GM/30 ML UDCUP PO SCH ×2 (12:10→18:20)
[2017-04-11] MEDS: DOCUSATE SODIUM 100 MG CAPSULE PO SCH ×2 (12:10→18:20)
[2017-04-11] MEDS: POLYETHYLENE GLYCOL 3350 POWDER 17 GM/1 PACKET PO SCH (13:29)
[2017-04-11] MEDS: INSULIN LISPRO 100 UNIT/ML 3 ML VIAL SUBCUT PRN ×2 (14:45→18:18)
[2017-04-11] MEDS: METFORMIN HCL 500 MG TABLET PO SCH (18:15)
[2017-04-11] MEDS: DILTIAZEM HCL 120 MG CAP.SR.24H PO SCH (18:16)
[2017-04-11] MEDS: ACETAMINOPHEN 325 MG TABLET PO PRN (18:19)
--- NOTE | 2017-04-11 20:58 | PDOC PROGRESS REPORT ---
Subjective Progress Note for:: 04/11/17 Subjective:: Patient has had resolution of constipation. Patient denies chest pain, shortness of breath, cough, fever, chills, nausea, vomiting, diarrhea, abdominal pain. Patient reports He feels improved from yesterday. Physical Exam Vital Signs: Temp Pulse Resp BP Pulse Ox 98.2 F 66 20 149/57 H 95 04/11/17 03:52 04/11/17 03:52 04/11/17 03:52 04/11/17 03:52 04/11/17 03:52 Intake & Output 04/10/17 04/11/17 04/12/17 06:59 06:59 06:59 Intake Total 2108 1790 Output Total 3187 1600 Balance -1079 190 Weight 94.2 kg 94.6 kg Exam: General:No acute respiratory distress, Easily arousable, alert, oriented 3 HEENT: AT/NC, PERRL,EOMI, oropharynx is dry, pink, no scleral icterus, no conjunctival injection Neck: No JVD, trachea midline Chest: Diminished left lower lobe, otherwise clear CV: IRR, normal S1 and S2, 2/6 SM; no rub or gallop Abdomen: Soft, nontender to palpation, mildly distended, diminished bowel sounds ; no rebound, rigidity, or guarding Extremities: No cyanosis, clubbing; woody, edematous Neuro: functional quadriparesis, Psych: Normal mood and affect Results Laboratory Results: 04/09/17 06:34 04/10/17 04:33 Impressions: Chest X-Ray 04/08/17 22:09 IMPRESSION: Left basilar density is noted above Assessment & Plan - Diagnosis (1) LLL pneumonia Qualifiers: Pneumonia type: due to unspecified organism Qualified Code(s): J18.1 - Lobar pneumonia, unspecified organism Is this a current diagnosis for this admission?: YesPlan: Patient currently being treated for healthcare associated pneumonia due to [facility]. Patient on vancomycin and Zosyn day #01/26. Pending sputum culture. Pulmonary toileting, and will consider transitioning to chest physiotherapy versus flutter valve. (2) Spinal muscular atrophy type III Is this a current diagnosis for this admission?: YesPlan: Continue supportive care Vicodin as needed pain. Have readdressed patients CODE STATUS with him and he elects to be a full code. (3) Acute encephalopathy Is this a current diagnosis for this admission?: YesPlan: Improved. Likely secondary to pneumonia. (4) Hyperkalemia Is this a current diagnosis for this admission?: YesPlan: Improved, likely secondary to respiratory acidosis. Will continue to monitor (5) Atrial fibrillation and flutter Is this a current diagnosis for this admission?: YesPlan: Patient is on metoprolol and Eliquis currently rate controlled. (6) Chronic anticoagulation Is this a current diagnosis for this admission?: Yes (7) Coronary artery disease Qualifiers: Coronary Disease-Associated Artery/Lesion type: [place] artery [place] vs. transplanted heart: [place] heart Associated angina: angina presence unspecified Qualified Code(s): I25.10 - Atherosclerotic heart disease of [place] coronary artery without angina pectoris Is this a current diagnosis for this admission?: Yes (8) Diabetes mellitus type 2 in obese Is this a current diagnosis for this admission?: YesPlan: Continue metformin, Januvia, and sliding scale insulin. Currently fair control of sugar. (9) Hyperlipidemia Qualifiers: Hyperlipidemia type: unspecified Qualified Code(s): E78.5 - Hyperlipidemia, unspecified Is this a current diagnosis for this admission?: Yes (10) Obesity (BMI 30.0-34.9) Is this a current diagnosis for this admission?: Yes - Time Time Spent with patient: 25-34 minutes Medications reviewed and adjusted accordingly: Yes
[2017-04-11] MEDS: MONTELUKAST SODIUM 10 MG TABLET PO SCH (21:18)
[2017-04-11] MEDS: ATORVASTATIN CALCIUM 80 MG TABLET PO SCH (21:18)
[2017-04-11] MEDS: LORAZEPAM 0.5 MG TABLET PO SCH (21:19)
[2017-04-11] MEDS: TAMSULOSIN HCL 0.4 MG CAP.SR.24H PO SCH (21:19)
[2017-04-11] MEDS: HYDROXYZINE HCL 10 MG TABLET PO SCH (21:21)
[2017-04-11] MEDS: MAGNESIUM OXIDE 400 MG TABLET PO SCH (21:21)
[2017-04-11] MEDS: HYDROCODONE/ACETAMINOPHEN 5-325 MG TABLET PO PRN (21:25)
[2017-04-11] MEDS: VANCOMYCIN HCL 1,000 MG in DEXTROSE 5%-WATER 250 ML IV SCH (23:27)
[2017-04-12] MEDS: PIPERACILLIN SODIUM/TAZOBACTAM 4.5 GM in NORMAL SALINE 100 ML IV SCH ×2 (03:17→08:53)
[2017-04-12 06:09] LABS: ABSOLUTE BASOPHILS # (AUTO) 0.1 10^3/uL (0.0-0.2); ABSOLUTE EOSINOPHILS # (AUTO) 0.5 10^3/uL (0.0-0.6); ABSOLUTE LYMPHOCYTES (AUTO) 1.9 10^3/uL (0.5-4.7); ABSOLUTE MONOCYTES (AUTO) 0.8 10^3/uL (0.1-1.4); ABSOLUTE NEUT (AUTO) 6.2 10^3/uL (1.7-8.2); BASOPHILS % (AUTO) 1.3 % (0-2); EOSINOPHILS % (AUTO) 5.1 % (0-6); HEMATOCRIT 34.4 % (37.9-51.0); HEMOGLOBIN 10.9 g/dL (13.5-17.0); HGB HCT DIFFERENCE -1.7; LYMPHOCYTES % (AUTO) 20.2 % (13-45); MEAN CORPUSCULAR HEMOGLOBIN 26.2 pg (27.0-33.4); MEAN CORPUSCULAR HGB CONC 31.6 g/dL (32.0-36.0); MEAN CORPUSCULAR VOLUME 83 fl (80-97); MONOCYTES % (AUTO) 8.1 % (3-13); RED BLOOD COUNT 4.16 10^6/uL (4.35-5.55); RED CELL DISTRIBUTION WIDTH 18.5 % (11.5-14.0); SEGMENTED NEUTROPHILS % (AUTO) 65.3 % (42-78); WHITE BLOOD COUNT 9.5 10^3/uL (4.0-10.5)
[2017-04-12] MEDS: GABAPENTIN 400 MG CAPSULE PO SCH ×3 (06:19→21:43)
[2017-04-12 07:03] LABS: ANION GAP 13 (5-19); BLOOD UREA NITROGEN 16 mg/dL (7-20); CALCIUM 8.9 mg/dL (8.4-10.2); CARBON DIOXIDE 25 mmol/L (22-30); CHLORIDE 102 mmol/L (98-107); CREATININE RESULT 0.57 mg/dL (0.52-1.25); GLUCOSE 158 mg/dL (75-110); POTASSIUM 3.7 mmol/L (3.6-5.0)
[2017-04-12] MEDS ORDERED: NORMAL SALINE 1000 ML 1,000 ML IV PRN (07:16)
[2017-04-12] MEDS: LEVALBUTEROL HCL NEB 1.25 MG/3 ML AMPUL NEB SCH ×2 (08:08→16:12)
[2017-04-12] MEDS: DOCUSATE SODIUM 100 MG CAPSULE PO SCH ×2 (09:04→19:19)
[2017-04-12] MEDS: APIXABAN 5 MG TABLET PO SCH ×2 (09:05→19:19)
[2017-04-12] MEDS: METOPROLOL TARTRATE 100 MG TABLET PO SCH ×2 (09:06→21:43)
[2017-04-12] MEDS: DULOXETINE HCL 30 MG CAPSULE.DR PO SCH (09:06)
[2017-04-12] MEDS: GUAIFENESIN 600 MG TABLET.SA PO SCH ×2 (09:06→21:44)
[2017-04-12] MEDS: SITAGLIPTIN PHOSPHATE 50 MG TABLET PO SCH (09:06)
[2017-04-12] MEDS: CALCIUM CARBONATE 250 MG/VITAMIN D3 125 UNIT TABLET PO SCH (09:08)
[2017-04-12] MEDS: ASPIRIN 81 MG TABLET, CHEWABLE PO SCH (09:08)
[2017-04-12] MEDS: HYDROCORTISONE 1% CREAM 28.35 GM TP SCH ×3 (09:08→19:20)
[2017-04-12] MEDS: ISOSORBIDE MONONITRATE 30 MG TAB.ER.24H PO SCH (09:08)
[2017-04-12] MEDS: LACTULOSE SYRUP 20 GM/30 ML UDCUP PO SCH (09:10)
[2017-04-12] MEDS: ACETAMINOPHEN 325 MG TABLET PO PRN (09:10)
[2017-04-12] MEDS: INSULIN LISPRO 100 UNIT/ML 3 ML VIAL SUBCUT PRN ×3 (09:51→19:18)
[2017-04-12] MEDS: VANCOMYCIN HCL 1,000 MG in DEXTROSE 5%-WATER 250 ML IV SCH (11:11)
[2017-04-12] MEDS: POLYETHYLENE GLYCOL 3350 POWDER 17 GM/1 PACKET PO SCH (14:51)
--- NOTE | 2017-04-12 16:38 | PDOC PROGRESS REPORT ---
Subjective Progress Note for:: 04/12/17 Subjective:: Patient reports he is feeling improved from yesterday. He reports he does not have any sputum. Patient denies chest pain, shortness of breath, cough, fever, chills, nausea, vomiting, diarrhea, abdominal pain. Physical Exam Vital Signs: Temp Pulse Resp BP Pulse Ox 98.0 F 67 13 148/69 H 96 04/12/17 03:56 04/12/17 03:56 04/12/17 03:56 04/12/17 03:56 04/12/17 03:56 Intake & Output 04/11/17 04/12/17 04/13/17 06:59 06:59 06:59 Intake Total 1790 1567 Output Total 1600 1075 Balance 190 492 Weight 94.6 kg Exam: General:No acute respiratory distress, awake, alert, oriented 3 HEENT: AT/NC, PERRL,EOMI, oropharynx is dry, pink, no scleral icterus, no conjunctival injection Neck: No JVD, trachea midline Chest: Clear to auscultation bilaterally CV: IRR, normal S1 and S2, 2/6 SM; no rub or gallop Abdomen: Soft, nontender to palpation, mildly distended, diminished bowel sounds ; no rebound, rigidity, or guarding Extremities: No cyanosis, clubbing; woody, edematous Neuro: functional quadriparesis, Psych: Normal mood and affect Results Laboratory Results: 04/12/17 05:41 04/12/17 05:41 04/11/17 04/11/17 04/12/17 10:05 10:05 05:41 WBC 9.0 9.5 RBC 3.96 L 4.16 L Hgb 10.3 L 10.9 L Hct 32.9 L 34.4 L MCV 83 83 MCH 26.1 L 26.2 L MCHC 31.5 L 31.6 L RDW 17.9 H 18.5 H Plt Count 223 240 Seg Neutrophils % 80.0 H 65.3 Lymphocytes % 10.6 L 20.2 Monocytes % 4.5 8.1 Eosinophils % 4.0 5.1 Basophils % 0.9 1.3 Absolute Neutrophils 7.2 6.2 Absolute Lymphocytes 1.0 1.9 Absolute Monocytes 0.4 0.8 Absolute Eosinophils 0.4 0.5 Absolute Basophils 0.1 0.1 Sodium Potassium Chloride Carbon Dioxide Anion Gap BUN Creatinine 0.36 L Est GFR ( Amer) > 60 Est GFR (Non-Af Amer) > 60 Glucose Calcium 04/12/17 05:41 WBC RBC Hgb Hct MCV MCH MCHC RDW Plt Count Seg Neutrophils % Lymphocytes % Monocytes % Eosinophils % Basophils % Absolute Neutrophils Absolute Lymphocytes Absolute Monocytes Absolute Eosinophils Absolute Basophils Sodium 140.0 Potassium 3.7 Chloride 102 Carbon Dioxide 25 Anion Gap 13 BUN 16 Creatinine 0.57 Est GFR ( Amer) > 60 Est GFR (Non-Af Amer) > 60 Glucose 158 H Calcium 8.9 Impressions: Chest X-Ray 04/08/17 22:09 IMPRESSION: Left basilar density is noted above Assessment & Plan - Diagnosis (1) LLL pneumonia Qualifiers: Pneumonia type: due to unspecified organism Qualified Code(s): J18.1 - Lobar pneumonia, unspecified organism Is this a current diagnosis for this admission?: YesPlan: Patient currently being treated for healthcare associated pneumonia due to [facility] at a [facility]. Patient received vancomycin and Zosyn for 3 days. Cultures currently growing only Beth albicans. Will stop vancomycin and Zosyn. Place patient on Augmentin for 7 days. Will repeat CBC and monitor fever curve in light of the alteration of therapy. Patient still at risk for underlying organisms despite negative culture because of his spinal muscular atrophy. Decreased nebulized treatments. (2) Spinal muscular atrophy type III Is this a current diagnosis for this admission?: YesPlan: Continue supportive care Vicodin as needed pain. Have readdressed patients CODE STATUS with him and he elects to be a full code. (3) Acute encephalopathy Is this a current diagnosis for this admission?: YesPlan: Improved. Likely secondary to pneumonia. (4) Hyperkalemia Is this a current diagnosis for this admission?: Yes (5) Atrial fibrillation and flutter Is this a current diagnosis for this admission?: YesPlan: Patient is on metoprolol and Eliquis currently rate controlled. (6) Chronic anticoagulation Is this a current diagnosis for this admission?: YesPlan: Continue Eliquis (7) Coronary artery disease Qualifiers: Coronary Disease-Associated Artery/Lesion type: [place] artery [place] vs. transplanted heart: [place] heart Associated angina: angina presence unspecified Qualified Code(s): I25.10 - Atherosclerotic heart disease of [place] coronary artery without angina pectoris Is this a current diagnosis for this admission?: YesPlan: On metoprolol and Eliquis PRN nitroglycerin (8) Diabetes mellitus type 2 in obese Is this a current diagnosis for this admission?: Yes (9) Hyperlipidemia Qualifiers: Hyperlipidemia type: unspecified Qualified Code(s): E78.5 - Hyperlipidemia, unspecified Is this a current diagnosis for this admission?: Yes (10) Obesity (BMI 30.0-34.9) Is this a current diagnosis for this admission?: Yes (11) Eczema Qualifiers: Eczema type: unspecified Qualified Code(s): L30.9 - Dermatitis, unspecified Is this a current diagnosis for this admission?: YesPlan: Continue hydrocortisone cream. (12) Sleep-disordered breathing Is this a current diagnosis for this admission?: YesPlan: Patient self reports waking up from sleep gasping for breath on occasions. He reports his brother has sleep apnea. - Time Time Spent with patient: 25-34 minutes Medications reviewed and adjusted accordingly: Yes Anticipated discharge: SNF Within: within 24 hours, within 48 hours
[2017-04-12] MEDS: DILTIAZEM HCL 120 MG CAP.SR.24H PO SCH (19:16)
[2017-04-12] MEDS: METFORMIN HCL 500 MG TABLET PO SCH (19:18)
[2017-04-12] MEDS: MONTELUKAST SODIUM 10 MG TABLET PO SCH (21:43)
[2017-04-12] MEDS: MAGNESIUM OXIDE 400 MG TABLET PO SCH (21:44)
[2017-04-12] MEDS: HYDROXYZINE PAMOATE 25 MG CAPSULE PO SCH (21:44)
[2017-04-12] MEDS: ATORVASTATIN CALCIUM 80 MG TABLET PO SCH (21:44)
[2017-04-12] MEDS: TAMSULOSIN HCL 0.4 MG CAP.SR.24H PO SCH (21:44)
[2017-04-12] MEDS: LORAZEPAM 0.5 MG TABLET PO SCH (21:44)
[2017-04-13] MEDS: HYDROCODONE/ACETAMINOPHEN 5-325 MG TABLET PO PRN ×2 (00:27→22:52)
[2017-04-13] MEDS: GABAPENTIN 400 MG CAPSULE PO SCH ×3 (05:17→21:20)
[2017-04-13] MEDS: LEVALBUTEROL HCL NEB 1.25 MG/3 ML AMPUL NEB SCH ×4 (08:08→23:47)
[2017-04-13 08:23] LABS: ABSOLUTE BASOPHILS # (AUTO) 0.1 10^3/uL (0.0-0.2); ABSOLUTE EOSINOPHILS # (AUTO) 0.4 10^3/uL (0.0-0.6); ABSOLUTE LYMPHOCYTES (AUTO) 1.3 10^3/uL (0.5-4.7); ABSOLUTE MONOCYTES (AUTO) 0.7 10^3/uL (0.1-1.4); ABSOLUTE NEUT (AUTO) 6.8 10^3/uL (1.7-8.2); BASOPHILS % (AUTO) 1.2 % (0-2); EOSINOPHILS % (AUTO) 4.3 % (0-6); HEMATOCRIT 30.2 % (37.9-51.0); HEMOGLOBIN 9.6 g/dL (13.5-17.0); HGB HCT DIFFERENCE -1.4; LYMPHOCYTES % (AUTO) 14.1 % (13-45); MEAN CORPUSCULAR HEMOGLOBIN 26.1 pg (27.0-33.4); MEAN CORPUSCULAR HGB CONC 31.7 g/dL (32.0-36.0); MEAN CORPUSCULAR VOLUME 83 fl (80-97); MONOCYTES % (AUTO) 7.7 % (3-13); RED BLOOD COUNT 3.66 10^6/uL (4.35-5.55); RED CELL DISTRIBUTION WIDTH 17.7 % (11.5-14.0); SEGMENTED NEUTROPHILS % (AUTO) 72.7 % (42-78); WHITE BLOOD COUNT 9.4 10^3/uL (4.0-10.5)
[2017-04-13] MEDS: LACTULOSE SYRUP 20 GM/30 ML UDCUP PO SCH (09:05)
[2017-04-13] MEDS: ACETAMINOPHEN 325 MG TABLET PO PRN ×2 (09:05→18:33)
[2017-04-13] MEDS: APIXABAN 5 MG TABLET PO SCH (09:06)
[2017-04-13] MEDS: CALCIUM CARBONATE 250 MG/VITAMIN D3 125 UNIT TABLET PO SCH (09:06)
[2017-04-13] MEDS: DULOXETINE HCL 30 MG CAPSULE.DR PO SCH (09:06)
[2017-04-13] MEDS: METOPROLOL TARTRATE 100 MG TABLET PO SCH ×2 (09:08→21:21)
[2017-04-13] MEDS: ASPIRIN 81 MG TABLET, CHEWABLE PO SCH (09:08)
[2017-04-13] MEDS: GUAIFENESIN 600 MG TABLET.SA PO SCH ×2 (09:09→21:20)
[2017-04-13] MEDS: ISOSORBIDE MONONITRATE 30 MG TAB.ER.24H PO SCH (09:09)
[2017-04-13] MEDS: SITAGLIPTIN PHOSPHATE 50 MG TABLET PO SCH (09:09)
[2017-04-13] MEDS: DOCUSATE SODIUM 100 MG CAPSULE PO SCH (09:10)
[2017-04-13] MEDS: HYDROCORTISONE 1% CREAM 28.35 GM TP SCH ×3 (09:10→18:34)
[2017-04-13] MEDS ORDERED: MAG HYDROX/AL HYDROX/SIMETH SUSP 30 ML UDCUP PO ONE (12:00)
[2017-04-13] MEDS ORDERED: LIDOCAINE 2% VISCOUS SOLN 20 ML UDCUP PO ONE (12:00)
[2017-04-13 12:32] LABS: ANION GAP 12 (5-19); BLOOD UREA NITROGEN 12 mg/dL (7-20); CARBON DIOXIDE 26 mmol/L (22-30); CHLORIDE 103 mmol/L (98-107); CREATINE KINASE 20 U/L (55-170); CREATININE RESULT 0.34 mg/dL (0.52-1.25); GLUCOSE 219 mg/dL (75-110); POTASSIUM 3.9 mmol/L (3.6-5.0); SODIUM 141.1 mmol/L (137-145)
[2017-04-13 12:42] LABS: CREATINE KINASE MB 0.42 ng/mL (<4.55); TROPONIN I 0.012 ng/mL
--- NOTE | 2017-04-13 13:59 | RADIOLOGY REPORT (SQ) ---
EXAM DESCRIPTION: CHEST SINGLE VIEW COMPLETED DATE/TIME: 04/13/2017 1:47 pm REASON FOR STUDY: chest pain COMPARISON: 04/08/2017 EXAM PARAMETERS: NUMBER OF VIEWS: One view. TECHNIQUE: Single frontal radiographic view of the chest acquired. RADIATION DOSE: NA LIMITATIONS: None. FINDINGS: LUNGS AND PLEURA: There continues to be increased opacity in the left base and left hemidi aphragm is indistinct. There appears to be a small pleural effusion. No acute pulmonary infiltrate is seen on the right. MEDIASTINUM AND HILAR STRUCTURES: No masses. Contour normal. HEART AND VASCULAR STRUCTURES: Heart normal in size. Normal vasculature. BONES: No acute findings. HARDWARE: None in the chest. OTHER: No other significant finding. IMPRESSION: Left lower lobe pneumonia versus atelectasis. Small left pleural effusion. TECHNICAL DOCUMENTATION: JOB ID: [id number]
[2017-04-13] MEDS: POLYETHYLENE GLYCOL 3350 POWDER 17 GM/1 PACKET PO SCH (15:05)
[2017-04-13] MEDS: METFORMIN HCL 500 MG TABLET PO SCH (18:33)
--- NOTE | 2017-04-13 19:43 | PDOC PROGRESS REPORT ---
Subjective Progress Note for:: 04/13/17 Subjective:: Patient seen earlier on morning rounds. Patient reports he is having mid substernal chest pain. Patient reports that this is an unusual pain and is not associated with nausea, vomiting, diaphoresis or shortness of breath. Patient had a bowel movement. Patient denies shortness of breath, cough, fever, chills, nausea, vomiting, diarrhea, abdominal pain. Physical Exam Vital Signs: Temp Pulse Resp BP Pulse Ox 98.6 F 61 18 146/61 H 100 04/13/17 15:43 04/13/17 16:39 04/13/17 16:39 04/13/17 15:43 04/13/17 16:39 Intake & Output 04/12/17 04/13/17 04/14/17 06:59 06:59 06:59 Intake Total 1567 3306 868 Output Total 1075 2050 420 Balance 492 1256 448 Weight 101.2 kg Exam: General:No acute respiratory distress, awake, alert, oriented 3 HEENT: AT/NC, PERRL,EOMI, oropharynx is dry, pink, no scleral icterus, no conjunctival injection Neck: No JVD, trachea midline Chest: Clear to auscultation bilaterally CV: RRR, normal S1 and S2, 2/6 SM; no rub or gallop Abdomen: Soft, nontender to palpation, mildly distended, diminished bowel sounds ; no rebound, rigidity, or guarding Extremities: No cyanosis, clubbing; woody, edematous Neuro: functional quadriparesis, Psych: Normal mood and affect Results Laboratory Results: 04/13/17 08:17 04/13/17 11:50 04/13/17 04/13/17 04/13/17 08:17 11:50 15:00 WBC 9.4 RBC 3.66 L Hgb 9.6 L Hct 30.2 L MCV 83 MCH 26.1 L MCHC 31.7 L RDW 17.7 H Plt Count 213 Seg Neutrophils % 72.7 Lymphocytes % 14.1 Monocytes % 7.7 Eosinophils % 4.3 Basophils % 1.2 Absolute Neutrophils 6.8 Absolute Lymphocytes 1.3 Absolute Monocytes 0.7 Absolute Eosinophils 0.4 Absolute Basophils 0.1 Sodium 141.1 Potassium 3.9 Chloride 103 Carbon Dioxide 26 Anion Gap 12 BUN 12 Creatinine 0.34 L Est GFR ( Amer) > 60 Est GFR (Non-Af Amer) > 60 Glucose 219 H Calcium 9.0 Stool Occult Blood NEGATIVE 04/11/17 08:45 Sputum Gram Stain - Final 04/11/17 08:45 Sputum Sputum Culture - Final C.albicans/C.dubliniensis Normal Betzy Absent 04/13/17 04/13/17 11:50 11:50 Creatine Kinase 20 L CK-MB (CK-2) 0.42 Troponin I 0.012 Impressions: Chest X-Ray 04/13/17 00:00 IMPRESSION: Left lower lobe pneumonia versus atelectasis. Small left pleural effusion. Assessment & Plan - Diagnosis (1) Chest pain Qualifiers: Chest pain type: precordial pain Qualified Code(s): R07.2 - Precordial pain Is this a current diagnosis for this admission?: YesPlan: We will obtain chest x-ray cardiac enzymes and EKG. Suspect that this may be an underlying GI etiology and will give GI cocktail. Continue telemetry monitoring at this time. Currently in sinus arrhythmia. We will continue to monitor patient and will delay discharge for this. (2) LLL pneumonia Qualifiers: Pneumonia type: due to unspecified organism Qualified Code(s): J18.1 - Lobar pneumonia, unspecified organism Is this a current diagnosis for this admission?: YesPlan: Patient currently being treated for healthcare associated pneumonia due to his residence at a [facility]. Patient received vancomycin and Zosyn for 3 days. Cultures currently growing only Beth albicans. On Augmentin day #1 of 7 days. Patient still at risk for underlying organisms despite negative culture because of his spinal muscular atrophy. Continue Nebulized treatments and stop chest physiotherapy. (3) Spinal muscular atrophy type III Is this a current diagnosis for this admission?: YesPlan: Continue supportive care Vicodin as needed pain. Have readdressed patients CODE STATUS with him and he elects to be a full code. (4) Acute encephalopathy Is this a current diagnosis for this admission?: YesPlan: Improved. Likely secondary to pneumonia. (5) Hyperkalemia Is this a current diagnosis for this admission?: Yes (6) Atrial fibrillation and flutter Is this a current diagnosis for this admission?: YesPlan: Patient is on metoprolol and Eliquis currently rate controlled and in sinus arrhythmia. (7) Chronic anticoagulation Is this a current diagnosis for this admission?: Yes (8) Coronary artery disease Qualifiers: Coronary Disease-Associated Artery/Lesion type: [place] artery [place] vs. transplanted heart: [place] heart Associated angina: angina presence unspecified Qualified Code(s): I25.10 - Atherosclerotic heart disease of [place] coronary artery without angina pectoris Is this a current diagnosis for this admission?: Yes (9) Diabetes mellitus type 2 in obese Is this a current diagnosis for this admission?: Yes (10) Hyperlipidemia Qualifiers: Hyperlipidemia type: unspecified Qualified Code(s): E78.5 - Hyperlipidemia, unspecified Is this a current diagnosis for this admission?: Yes (11) Obesity (BMI 30.0-34.9) Is this a current diagnosis for this admission?: Yes (12) Eczema Qualifiers: Eczema type: unspecified Qualified Code(s): L30.9 - Dermatitis, unspecified Is this a current diagnosis for this admission?: Yes (13) Sleep-disordered breathing Is this a current diagnosis for this admission?: Yes - Time Time Spent with patient: 25-34 minutes Anticipated discharge: SNF - Inpatient Certification Medical Necessity: Need For Continuous Telemetry Monitoring, Need for Nebulizer Therapy and Monitoring of Response Post Hospital Care: 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
[2017-04-13] MEDS: DILTIAZEM HCL 120 MG CAP.SR.24H PO SCH (19:50)
--- NOTE | 2017-04-13 20:35 | EKG REPORT ---
SEVERITY:- ABNORMAL ECG - SINUS RHYTHM ATRIAL PREMATURE COMPLEX LVH WITH SECONDARY REPOLARIZATION ABNORMALITY : Confirmed by: Lalo Herrera MD 13-Apr-2017 20:34:57
[2017-04-13] MEDS: ATORVASTATIN CALCIUM 80 MG TABLET PO SCH (21:19)
[2017-04-13] MEDS: TAMSULOSIN HCL 0.4 MG CAP.SR.24H PO SCH (21:20)
[2017-04-13] MEDS: LORAZEPAM 0.5 MG TABLET PO SCH (21:20)
[2017-04-13] MEDS: HYDROXYZINE PAMOATE 25 MG CAPSULE PO SCH (21:20)
[2017-04-13] MEDS: MAGNESIUM OXIDE 400 MG TABLET PO SCH (21:20)
[2017-04-13] MEDS: MONTELUKAST SODIUM 10 MG TABLET PO SCH (21:20)
[2017-04-14 04:50] LABS: ABSOLUTE BASOPHILS # (AUTO) 0.1 10^3/uL (0.0-0.2); ABSOLUTE EOSINOPHILS # (AUTO) 0.4 10^3/uL (0.0-0.6); ABSOLUTE LYMPHOCYTES (AUTO) 1.3 10^3/uL (0.5-4.7); ABSOLUTE MONOCYTES (AUTO) 0.9 10^3/uL (0.1-1.4); ABSOLUTE NEUT (AUTO) 8.7 10^3/uL (1.7-8.2); BASOPHILS % (AUTO) 0.9 % (0-2); EOSINOPHILS % (AUTO) 3.2 % (0-6); HEMATOCRIT 34.1 % (37.9-51.0); HEMOGLOBIN 10.7 g/dL (13.5-17.0); LYMPHOCYTES % (AUTO) 11.4 % (13-45); MEAN CORPUSCULAR HEMOGLOBIN 25.8 pg (27.0-33.4); MEAN CORPUSCULAR HGB CONC 31.3 g/dL (32.0-36.0); MEAN CORPUSCULAR VOLUME 82 fl (80-97); MONOCYTES % (AUTO) 7.6 % (3-13); RED BLOOD COUNT 4.15 10^6/uL (4.35-5.55); SEGMENTED NEUTROPHILS % (AUTO) 76.9 % (42-78); WHITE BLOOD COUNT 11.3 10^3/uL (4.0-10.5)
[2017-04-14 05:03] LABS: ANION GAP 9 (5-19); BLOOD UREA NITROGEN 16 mg/dL (7-20); CARBON DIOXIDE 27 mmol/L (22-30); CHLORIDE 101 mmol/L (98-107); CREATININE RESULT 0.47 mg/dL (0.52-1.25); GLUCOSE 170 mg/dL (75-110); POTASSIUM 4.5 mmol/L (3.6-5.0); SODIUM 137.2 mmol/L (137-145)
[2017-04-14] MEDS: GABAPENTIN 400 MG CAPSULE PO SCH ×3 (05:18→22:25)
[2017-04-14] MEDS ORDERED: FUROSEMIDE 20 MG TABLET PO ONE (07:37)
[2017-04-14] MEDS: LEVALBUTEROL HCL NEB 1.25 MG/3 ML AMPUL NEB SCH ×3 (08:03→23:24)
[2017-04-14] MEDS: SITAGLIPTIN PHOSPHATE 50 MG TABLET PO SCH (10:37)
[2017-04-14] MEDS: GUAIFENESIN 600 MG TABLET.SA PO SCH ×2 (10:37→22:24)
[2017-04-14] MEDS: DULOXETINE HCL 30 MG CAPSULE.DR PO SCH (10:37)
[2017-04-14] MEDS: METOPROLOL TARTRATE 100 MG TABLET PO SCH ×2 (10:37→22:25)
[2017-04-14] MEDS: LACTULOSE SYRUP 20 GM/30 ML UDCUP PO SCH (10:37)
[2017-04-14] MEDS: APIXABAN 5 MG TABLET PO SCH ×2 (10:41→18:11)
[2017-04-14] MEDS: HYDROCORTISONE 1% CREAM 28.35 GM TP SCH ×3 (10:41→18:14)
[2017-04-14] MEDS: ISOSORBIDE MONONITRATE 30 MG TAB.ER.24H PO SCH (10:41)
[2017-04-14] MEDS: CALCIUM CARBONATE 250 MG/VITAMIN D3 125 UNIT TABLET PO SCH (10:41)
[2017-04-14] MEDS ORDERED: FUROSEMIDE INJ/PF 20 MG/2 ML SDV IV ONE (12:00)
[2017-04-14] MEDS: INSULIN LISPRO 100 UNIT/ML 3 ML VIAL SUBCUT PRN ×3 (13:19→22:28)
[2017-04-14] MEDS: POLYETHYLENE GLYCOL 3350 POWDER 17 GM/1 PACKET PO SCH (13:30)
[2017-04-14] MEDS ORDERED: MORPHINE SULFATE 10 MG/ML INJ IV ONE ×2 (15:13→16:08)
[2017-04-14] MEDS ORDERED: CYCLOBENZAPRINE HCL 10 MG TABLET PO ONE (15:13)
[2017-04-14] MEDS ORDERED: CYCLOBENZAPRINE HCL 10 MG TABLET PO PRN (15:13)
--- NOTE | 2017-04-14 16:14 | PDOC PROGRESS REPORT ---
Subjective Progress Note for:: 04/14/17 Subjective:: Patient seen earlier on morning rounds. Patient complains of back pain and bilateral arm pain. He reports that this is new and quite severe. He does report some loose stools. He denies any further chest pain. Patient denies chest pain, shortness of breath, cough, fever, chills, nausea, vomiting,abdominal pain. Physical Exam Vital Signs: Temp Pulse Resp BP Pulse Ox 98.2 F 76 20 136/49 H 94 04/14/17 03:46 04/14/17 03:46 04/14/17 03:46 04/14/17 03:46 04/14/17 03:46 Intake & Output 04/12/17 04/13/17 04/14/17 06:59 06:59 06:59 Intake Total 1567 3306 1205 Output Total 1075 2050 1445 Balance 492 1256 -240 Weight 101.2 kg 100.7 kg Exam: General:No acute respiratory distress, awake, alert, oriented 3 HEENT: AT/NC, PERRL,EOMI, oropharynx is dry, pink, no scleral icterus, no conjunctival injection Neck: No JVD, trachea midline, paraspinal muscle tenderness bilaterally with some tightness Chest: Clear to auscultation bilaterally CV: RRR, normal S1 and S2, 2/6 SM; no rub or gallop Abdomen: Soft, nontender to palpation, mildly distended, hyperactive bowel sounds; no rebound, rigidity, or guarding Extremities: No cyanosis, clubbing; woody, edematous Neuro: functional quadriparesis, Psych: Normal mood and affect Results Laboratory Results: 04/14/17 04:03 04/14/17 04:03 04/13/17 04/13/17 04/13/17 08:17 11:50 15:00 WBC 9.4 RBC 3.66 L Hgb 9.6 L Hct 30.2 L MCV 83 MCH 26.1 L MCHC 31.7 L RDW 17.7 H Plt Count 213 Seg Neutrophils % 72.7 Lymphocytes % 14.1 Monocytes % 7.7 Eosinophils % 4.3 Basophils % 1.2 Absolute Neutrophils 6.8 Absolute Lymphocytes 1.3 Absolute Monocytes 0.7 Absolute Eosinophils 0.4 Absolute Basophils 0.1 Sodium 141.1 Potassium 3.9 Chloride 103 Carbon Dioxide 26 Anion Gap 12 BUN 12 Creatinine 0.34 L Est GFR ( Amer) > 60 Est GFR (Non-Af Amer) > 60 Glucose 219 H Calcium 9.0 Stool Occult Blood NEGATIVE 04/14/17 04/14/17 04:03 04:03 WBC 11.3 H RBC 4.15 L Hgb 10.7 L Hct 34.1 L MCV 82 MCH 25.8 L MCHC 31.3 L RDW 18.0 H Plt Count 232 Seg Neutrophils % 76.9 Lymphocytes % 11.4 L Monocytes % 7.6 Eosinophils % 3.2 Basophils % 0.9 Absolute Neutrophils 8.7 H Absolute Lymphocytes 1.3 Absolute Monocytes 0.9 Absolute Eosinophils 0.4 Absolute Basophils 0.1 Sodium 137.2 Potassium 4.5 Chloride 101 Carbon Dioxide 27 Anion Gap 9 BUN 16 Creatinine 0.47 L Est GFR ( Amer) > 60 Est GFR (Non-Af Amer) > 60 Glucose 170 H Calcium 9.0 Stool Occult Blood 04/11/17 08:45 Sputum Gram Stain - Final 04/11/17 08:45 Sputum Sputum Culture - Final C.albicans/C.dubliniensis Normal Betzy Absent 04/13/17 04/13/17 11:50 11:50 Creatine Kinase 20 L CK-MB (CK-2) 0.42 Troponin I 0.012 Impressions: Chest X-Ray 04/13/17 00:00 IMPRESSION: Left lower lobe pneumonia versus atelectasis. Small left pleural effusion. Assessment & Plan - Diagnosis (1) LLL pneumonia Qualifiers: Pneumonia type: due to unspecified organism Qualified Code(s): J18.1 - Lobar pneumonia, unspecified organism Is this a current diagnosis for this admission?: YesPlan: Patient currently being treated for healthcare associated pneumonia due [facility]. Patient received vancomycin and Zosyn for 3 days. Cultures currently growing only Beth albicans. On Augmentin day #2 of 7 days. Patient still at risk for underlying organisms despite negative culture because of his spinal muscular atrophy. Continue Nebulized treatments and stop chest physiotherapy. (2) Spinal muscular atrophy type III Is this a current diagnosis for this admission?: YesPlan: Continue supportive care Vicodin as needed pain. Will give patient morphine at this time. His oral medications did not take care of his pain. Concern for underlying etiology of his slight elevation of his white count today. Have readdressed patients CODE STATUS with him and he elects to be a full code. (3) Acute encephalopathy Is this a current diagnosis for this admission?: YesPlan: Improved. Likely secondary to pneumonia. (4) Hyperkalemia Is this a current diagnosis for this admission?: YesPlan: Improved, likely secondary to respiratory acidosis. Will continue to monitor (5) Atrial fibrillation and flutter Is this a current diagnosis for this admission?: YesPlan: Patient is on metoprolol and Eliquis currently rate controlled and in sinus arrhythmia. (6) Chronic anticoagulation Is this a current diagnosis for this admission?: YesPlan: Continue Eliquis (7) Coronary artery disease Qualifiers: Coronary Disease-Associated Artery/Lesion type: [place] artery [place] vs. transplanted heart: [place] heart Associated angina: angina presence unspecified Qualified Code(s): I25.10 - Atherosclerotic heart disease of [place] coronary artery without angina pectoris Is this a current diagnosis for this admission?: YesPlan: On metoprolol and Eliquis PRN nitroglycerin (8) Diabetes mellitus type 2 in obese Is this a current diagnosis for this admission?: YesPlan: Continue metformin, Januvia, and sliding scale insulin. Currently fair control of sugar. (9) Hyperlipidemia Qualifiers: Hyperlipidemia type: unspecified Qualified Code(s): E78.5 - Hyperlipidemia, unspecified Is this a current diagnosis for this admission?: YesPlan: Continue lovasa. Hold statin for underlying spinal muscular atrophy. (10) Obesity (BMI 30.0-34.9) Is this a current diagnosis for this admission?: Yes (11) Eczema Qualifiers: Eczema type: unspecified Qualified Code(s): L30.9 - Dermatitis, unspecified Is this a current diagnosis for this admission?: Yes (12) Sleep-disordered breathing Is this a current diagnosis for this admission?: YesPlan: Patient self reports waking up from sleep gasping for breath on occasions. He reports his brother has sleep apnea. (13) Chest pain Qualifiers: Chest pain type: precordial pain Qualified Code(s): R07.2 - Precordial pain Is this a current diagnosis for this admission?: NoPlan: This appeared to be secondary to GI origin and improved with GI cocktail. EKG was unremarkable as were cardiac enzymes. - Time Time Spent with patient: 25-34 minutes Medications reviewed and adjusted accordingly: Yes Anticipated discharge: SNF Within: within 48 hours
--- NOTE | 2017-04-14 17:19 | RADIOLOGY REPORT (SQ) ---
EXAM DESCRIPTION: KUB/ABDOMEN (SINGLE VIEW) COMPLETED DATE/TIME: 04/14/2017 5:09 pm REASON FOR STUDY: abd distention COMPARISON: None. NUMBER OF VIEWS: One view. TECHNIQUE: Supine radiographic image of the abdomen acquired. LIMITATIONS: Study is limited due to the patient's body habitus. FINDINGS: BOWEL GAS PATTERN: Normal bowel gas pattern. No dilated loops. CALCIFICATIONS: No suspicious calcifications. SOFT TISSUES: No gross mass or suggestion of organomegaly. HARDWARE: Surgical clips are identified in the right upper quadrant. BONES: No acute fracture. No worrisome bone lesions. OTHER: No other significant finding. IMPRESSION: NO RADIOGRAPHIC EVIDENCE FOR ACUTE ABDOMINAL DISEASE. TECHNICAL DOCUMENTATION: JOB ID: [id number] [employer]- All Rights Reserved
[2017-04-14] MEDS: DILTIAZEM HCL 120 MG CAP.SR.24H PO SCH (17:42)
[2017-04-14] MEDS: METFORMIN HCL 500 MG TABLET PO SCH (17:58)
[2017-04-14] MEDS: LORAZEPAM 0.5 MG TABLET PO SCH (22:24)
[2017-04-14] MEDS: HYDROXYZINE PAMOATE 25 MG CAPSULE PO SCH (22:24)
[2017-04-14] MEDS: MAGNESIUM OXIDE 400 MG TABLET PO SCH (22:25)
[2017-04-14] MEDS: MONTELUKAST SODIUM 10 MG TABLET PO SCH (22:25)
[2017-04-14] MEDS: ATORVASTATIN CALCIUM 80 MG TABLET PO SCH (22:25)
[2017-04-14] MEDS: TAMSULOSIN HCL 0.4 MG CAP.SR.24H PO SCH (22:26)
[2017-04-15] MEDS: GABAPENTIN 400 MG CAPSULE PO SCH ×3 (05:04→21:48)
[2017-04-15] MEDS: HYDROCODONE/ACETAMINOPHEN 5-325 MG TABLET PO PRN ×2 (05:05→13:50)
[2017-04-15] MEDS ORDERED: FUROSEMIDE INJ/PF 20 MG/2 ML SDV IV ONE (07:31)
[2017-04-15] MEDS: INSULIN LISPRO 100 UNIT/ML 3 ML VIAL SUBCUT PRN ×3 (08:11→18:26)
[2017-04-15] MEDS: LEVALBUTEROL HCL NEB 1.25 MG/3 ML AMPUL NEB SCH (08:44)
[2017-04-15 09:00] LABS: ANION GAP 12 (5-19); BLOOD UREA NITROGEN 14 mg/dL (7-20); CALCIUM 9.4 mg/dL (8.4-10.2); CARBON DIOXIDE 26 mmol/L (22-30); CHLORIDE 100 mmol/L (98-107); CREATININE RESULT 0.33 mg/dL (0.52-1.25); GLUCOSE 182 mg/dL (75-110); POTASSIUM 4.2 mmol/L (3.6-5.0); SODIUM 138.2 mmol/L (137-145)
[2017-04-15] MEDS: GUAIFENESIN 600 MG TABLET.SA PO SCH ×2 (10:17→21:48)
[2017-04-15] MEDS: METOPROLOL TARTRATE 100 MG TABLET PO SCH ×2 (10:17→21:48)
[2017-04-15] MEDS: SITAGLIPTIN PHOSPHATE 50 MG TABLET PO SCH (10:17)
[2017-04-15] MEDS: CALCIUM CARBONATE 250 MG/VITAMIN D3 125 UNIT TABLET PO SCH (10:17)
[2017-04-15] MEDS: HYDROCORTISONE 1% CREAM 28.35 GM TP SCH ×3 (10:18→18:26)
[2017-04-15] MEDS: DULOXETINE HCL 30 MG CAPSULE.DR PO SCH (10:18)
[2017-04-15] MEDS: APIXABAN 5 MG TABLET PO SCH ×2 (10:18→18:26)
[2017-04-15] MEDS: ISOSORBIDE MONONITRATE 30 MG TAB.ER.24H PO SCH (10:18)
[2017-04-15] MEDS: POLYETHYLENE GLYCOL 3350 POWDER 17 GM/1 PACKET PO SCH (13:54)
[2017-04-15] MEDS ORDERED: CALCIUM CARBONATE 500 MG TAB.CHEW PO ONE (14:00)
--- NOTE | 2017-04-15 14:21 | PDOC PROGRESS REPORT ---
Subjective Progress Note for:: 04/15/17 Subjective:: Patient seen earlier on morning rounds. Patient reports his back pain has improved. He does complain of indigestion. Patient denies chest pain, shortness of breath, cough, fever, chills, nausea, vomiting,abdominal pain. Physical Exam Vital Signs: Temp Pulse Resp BP Pulse Ox 98.7 F 64 12 115/63 96 04/15/17 11:17 04/15/17 11:17 04/15/17 11:17 04/15/17 11:17 04/15/17 11:17 Intake & Output 04/14/17 04/15/17 04/16/17 06:59 06:59 06:59 Intake Total 1205 411 118 Output Total 1445 1230 350 Balance -240 -819 -232 Weight 100.7 kg 100.7 kg Exam: General:No acute respiratory distress, awake, alert, oriented 3 HEENT: AT/NC, PERRL,EOMI, oropharynx is moist, pink, no scleral icterus, no conjunctival injection Neck: No JVD, trachea midline, paraspinal muscle tenderness bilaterally with some tightness Chest: Clear to auscultation bilaterally CV: RRR, normal S1 and S2, 2/6 SM; no rub or gallop Abdomen: Soft, nontender to palpation, mildly distended, hyperactive bowel sounds; no rebound, rigidity, or guarding Extremities: No cyanosis, clubbing; woody, edematous Neuro: functional quadriparesis, A+Ox3 Psych: Normal mood and affect Results Laboratory Results: 04/14/17 04:03 04/15/17 08:30 04/15/17 08:30 Sodium 138.2 Potassium 4.2 Chloride 100 Carbon Dioxide 26 Anion Gap 12 BUN 14 Creatinine 0.33 L Est GFR ( Amer) > 60 Est GFR (Non-Af Amer) > 60 Glucose 182 H Calcium 9.4 04/13/17 04/13/17 11:50 11:50 Creatine Kinase 20 L CK-MB (CK-2) 0.42 Troponin I 0.012 Impressions: Chest X-Ray 04/13/17 00:00 IMPRESSION: Left lower lobe pneumonia versus atelectasis. Small left pleural effusion. KUB X-Ray 04/14/17 00:00 IMPRESSION: NO RADIOGRAPHIC EVIDENCE FOR ACUTE ABDOMINAL DISEASE. Assessment & Plan - Diagnosis (1) LLL pneumonia Qualifiers: Pneumonia type: due to unspecified organism Qualified Code(s): J18.1 - Lobar pneumonia, unspecified organism Is this a current diagnosis for this admission?: YesPlan: Patient currently being treated for healthcare associated pneumonia due [facility]. Patient received vancomycin and Zosyn for 3 days. Cultures currently growing only Beth albicans. On Augmentin day #3 of 7 days. Patient still at risk for underlying organisms despite negative culture because of his spinal muscular atrophy. PRN Nebulized treatments (2) Spinal muscular atrophy type III Is this a current diagnosis for this admission?: YesPlan: Continue supportive care Vicodin as needed pain. (3) Acute encephalopathy Is this a current diagnosis for this admission?: YesPlan: Improved. Likely secondary to pneumonia. (4) Hyperkalemia Is this a current diagnosis for this admission?: Yes (5) Atrial fibrillation and flutter Is this a current diagnosis for this admission?: YesPlan: Patient is on metoprolol and Eliquis currently rate controlled and in sinus arrhythmia. (6) Chronic anticoagulation Is this a current diagnosis for this admission?: Yes (7) Coronary artery disease Qualifiers: Coronary Disease-Associated Artery/Lesion type: [place] artery [place] vs. transplanted heart: [place] heart Associated angina: angina presence unspecified Qualified Code(s): I25.10 - Atherosclerotic heart disease of [place] coronary artery without angina pectoris Is this a current diagnosis for this admission?: Yes (8) Diabetes mellitus type 2 in obese Is this a current diagnosis for this admission?: YesPlan: Continue metformin, Januvia, and sliding scale insulin. Currently fair control of sugar. (9) Hyperlipidemia Qualifiers: Hyperlipidemia type: unspecified Qualified Code(s): E78.5 - Hyperlipidemia, unspecified Is this a current diagnosis for this admission?: Yes (10) Obesity (BMI 30.0-34.9) Is this a current diagnosis for this admission?: Yes (11) Eczema Qualifiers: Eczema type: unspecified Qualified Code(s): L30.9 - Dermatitis, unspecified Is this a current diagnosis for this admission?: Yes (12) Sleep-disordered breathing Is this a current diagnosis for this admission?: Yes - Time Time Spent with patient: 25-34 minutes Medications reviewed and adjusted accordingly: Yes Anticipated discharge: SNF Within: within 24 hours, within 48 hours
[2017-04-15] MEDS: METFORMIN HCL 500 MG TABLET PO SCH (16:33)
[2017-04-15] MEDS: CALCIUM CARBONATE 500 MG TAB.CHEW PO SCH ×2 (16:33→21:47)
[2017-04-15] MEDS: DILTIAZEM HCL 120 MG CAP.SR.24H PO SCH (18:26)
[2017-04-15] MEDS: MAGNESIUM OXIDE 400 MG TABLET PO SCH (21:48)
[2017-04-15] MEDS: TAMSULOSIN HCL 0.4 MG CAP.SR.24H PO SCH (21:49)
[2017-04-15] MEDS: ATORVASTATIN CALCIUM 80 MG TABLET PO SCH (21:49)
[2017-04-15] MEDS: LORAZEPAM 0.5 MG TABLET PO SCH (21:50)
[2017-04-15] MEDS: HYDROXYZINE PAMOATE 25 MG CAPSULE PO SCH (21:50)
[2017-04-15] MEDS: MONTELUKAST SODIUM 10 MG TABLET PO SCH (21:53)
[2017-04-16 04:58] LABS: ABSOLUTE BASOPHILS # (AUTO) 0.1 10^3/uL (0.0-0.2); ABSOLUTE EOSINOPHILS # (AUTO) 0.5 10^3/uL (0.0-0.6); ABSOLUTE LYMPHOCYTES (AUTO) 1.1 10^3/uL (0.5-4.7); ABSOLUTE NEUT (AUTO) 10.3 10^3/uL (1.7-8.2); BASOPHILS % (AUTO) 0.7 % (0-2); EOSINOPHILS % (AUTO) 3.5 % (0-6); HEMOGLOBIN 10.5 g/dL (13.5-17.0); HGB HCT DIFFERENCE -1.5; LYMPHOCYTES % (AUTO) 8.6 % (13-45); MEAN CORPUSCULAR HGB CONC 31.9 g/dL (32.0-36.0); MEAN CORPUSCULAR VOLUME 82 fl (80-97); MONOCYTES % (AUTO) 7.8 % (3-13); RED BLOOD COUNT 4.04 10^6/uL (4.35-5.55); RED CELL DISTRIBUTION WIDTH 17.9 % (11.5-14.0); SEGMENTED NEUTROPHILS % (AUTO) 79.4 % (42-78)
[2017-04-16] MEDS: GABAPENTIN 400 MG CAPSULE PO SCH ×2 (05:09→14:23)
[2017-04-16 05:14] LABS: ANION GAP 13 (5-19); BLOOD UREA NITROGEN 19 mg/dL (7-20); CARBON DIOXIDE 26 mmol/L (22-30); CHLORIDE 97 mmol/L (98-107); CREATININE RESULT 0.38 mg/dL (0.52-1.25); GLUCOSE 184 mg/dL (75-110); POTASSIUM 4.4 mmol/L (3.6-5.0); SODIUM 135.6 mmol/L (137-145)
[2017-04-16] MEDS: CALCIUM CARBONATE 500 MG TAB.CHEW PO SCH ×2 (08:08→12:09)
[2017-04-16] MEDS: INSULIN LISPRO 100 UNIT/ML 3 ML VIAL SUBCUT PRN ×2 (08:09→14:23)
[2017-04-16] MEDS: GUAIFENESIN 600 MG TABLET.SA PO SCH (11:08)
[2017-04-16] MEDS: CALCIUM CARBONATE 250 MG/VITAMIN D3 125 UNIT TABLET PO SCH (11:08)
[2017-04-16] MEDS: ISOSORBIDE MONONITRATE 30 MG TAB.ER.24H PO SCH (11:08)
[2017-04-16] MEDS: DULOXETINE HCL 30 MG CAPSULE.DR PO SCH (11:09)
[2017-04-16] MEDS: METOPROLOL TARTRATE 100 MG TABLET PO SCH (11:09)
[2017-04-16] MEDS: SITAGLIPTIN PHOSPHATE 50 MG TABLET PO SCH (11:09)
[2017-04-16] MEDS: APIXABAN 5 MG TABLET PO SCH (11:10)
[2017-04-16] MEDS: HYDROCORTISONE 1% CREAM 28.35 GM TP SCH ×2 (11:10→14:31)
[2017-04-16 11:37] VITALS: BP 170/50
--- NOTE | 2017-04-16 12:44 | PDOC DISCHARGE SUMMARY ---
General - Admit/Disc Date/PCP Admission Date/Primary Care Provider: 04/09/17 03:12 TIFFANY UMANA MD Discharge Date: 04/16/17 - Discharge Diagnosis (1) LLL pneumonia Is this a current diagnosis for this admission?: Yes (2) Acute encephalopathy Is this a current diagnosis for this admission?: Yes (3) Spinal muscular atrophy type III Is this a current diagnosis for this admission?: Yes (4) Hyperkalemia Is this a current diagnosis for this admission?: Yes (5) Atrial fibrillation and flutter Is this a current diagnosis for this admission?: Yes (6) Chronic anticoagulation Is this a current diagnosis for this admission?: Yes (7) Coronary artery disease Is this a current diagnosis for this admission?: Yes (8) Diabetes mellitus type 2 in obese Is this a current diagnosis for this admission?: Yes (9) Hyperlipidemia Is this a current diagnosis for this admission?: Yes (10) Obesity (BMI 30.0-34.9) Is this a current diagnosis for this admission?: Yes (11) Eczema Is this a current diagnosis for this admission?: Yes (12) Sleep-disordered breathing Is this a current diagnosis for this admission?: Yes - Additional Information Resuscitation Status: Full Code Discharge Diet: Diabetic Discharge Activity: Bedrest, Other Home Medications: Acetaminophen [Tylenol 325 mg Tablet] 650 mg PO Q4HP PRN 04/09/17 Albuterol Sulfate [Ventolin HFA MDI 18 GM] 2 puff IH Q4HP PRN 04/09/17 Apixaban [Eliquis 5 mg Tablet] 5 mg PO BID 04/09/17 Atorvastatin Calcium [Lipitor 80 mg Tablet] 80 mg PO QHS 04/09/17 Calcium Carbonate/Vitamin D3 [Os-Cesario 500-Vit D3 200 Caplet] 1 tab PO DAILY 04/09 Cepacol Extra Strength Throat Lozenge 1 ea PO Q2HP PRN 04/09/17 Dextran 70/Hypromellose [Artificial Tears Eye Drops] 1 drop OU DAILYP PRN Diltiazem HCl [Cardizem Cd 120 mg Capsule] 120 mg PO DAILY 04/09/17 Duloxetine HCl [Cymbalta] 60 mg PO DAILY 04/09/17 Gabapentin [Neurontin] 800 mg PO Q8 04/09/17 Hydrocortisone 1% Lotion 1 applic TOP TID 04/09/17 Hydroxyzine HCl [Atarax 25 mg Tablet] 1 tab PO QHS 04/09/17 Insulin Lispro [Humalog Insulin (Lispro) 100 unit/mL] 5 unit SUBCUT BIDP PRN Isosorbide Mononitrate [Imdur 30 mg Tablet.er] 30 mg PO DAILY 04/09/17 Levocetirizine Dihydrochloride [Xyzal] 5 mg PO DAILYP PRN 04/09/17 Loperamide HCl [Loperamide] 2 mg PO Q4HP PRN 04/09/17 Magnesium Oxide [Mag-Ox 400 mg Tablet] 400 mg PO QHS 04/09/17 Metformin HCl [Glucophage] 1,000 mg PO WSUPPER 04/09/17 Metoprolol Tartrate [Lopressor 100 mg Tablet] 100 mg PO Q12 04/09/17 Nitroglycerin [Nitrostat] 0.4 mg SL Q5MP PRN 04/09/17 Promethazine HCl [Phenergan 25 mg Tablet] 25 mg PO Q4HP PRN 04/09/17 Psyllium Husk [Metamucil] 0.52 gm PO BIDP PRN 04/09/17 Simethicone [Mylicon 80 mg Chewable Tablet] 80 mg PO DAILYP PRN 04/09/17 Sitagliptin Phosphate [Januvia] 100 mg PO DAILY 04/09/17 Tamsulosin HCl [Flomax 0.4 mg Cap.sr] 0.4 mg PO QHS 04/09/17 Amox Tr/Potassium Clavulanate [Augmentin 875-125 mg Tablet] 1 tab PO BID #6 tablet 04/16/17 Bisacodyl [Dulcolax 5 mg Tablet] 10 mg PO DAILYP PRN tabec 04/16/17 Calcium Carbonate [Tums Chewable 500 mg Tab.chew] 500 mg PO MEALSHS tab.chew Cyclobenzaprine HCl [Flexeril 10 mg Tablet] 5 mg PO Q8HP PRN #10 tablet Docusate Sodium [Colace 100 mg Capsule] 100 mg PO BID capsule 04/16/17 Gluc Oxid/l-Peroxid/Muramidase [Biotene Mouthwash] 59 ml MM QIDP PRN #120 mouthwash 04/16/17 Hydrocodone/Acetaminophen [[place] 5-325 mg Tablet] 1 tab PO Q4HP PRN #10 Lorazepam [Ativan 0.5 mg Tablet] 0.5 mg PO QHS #30 tablet 04/16/17 Montelukast Sodium [Singulair 10 mg Tablet] 10 mg PO QHS tablet 04/16/17 History of Present Illness History of Present Illness: Please see H&P for full HPI Hospital Course Hospital Course: Patient is a 71-year-old male who presents to the emergency department from [facility] with complaints of fever of up to 101.5 and hallucinations. Patient was found to have a left lower lobe pneumonia. Patient was started empirically on treatment for healthcare associated pneumonia due to his living circumstances. Patient's antibiotics were tapered and he was started on Augmentin alone. He had improvement of his shortness of breath and oxygen need. Patient continued to slowly improve and his cultures remained negative. Patient did suffer from some constipation but this was improved. He did have an episode of chest pain which is found to be secondary to GERD. The remainder of his hospital stay was unremarkable and he is transferred to his living facility in stable condition. Physical Exam Vital Signs: Temp Pulse Resp BP Pulse Ox 98.6 F 79 18 170/50 H 95 04/16/17 11:36 04/16/17 11:36 04/16/17 11:36 04/16/17 11:36 04/16/17 11:36 Intake & Output 04/15/17 04/16/17 04/17/17 06:59 06:59 06:59 Intake Total 411 598 Output Total 1230 1550 Balance -819 -952 Weight 100.7 kg 98.9 kg Exam: General:No acute respiratory distress, awake, alert, oriented 3 HEENT: AT/NC, PERRL,EOMI, oropharynx is moist, pink, no scleral icterus, no conjunctival injection Neck: No JVD, trachea midline, paraspinal muscle tenderness bilaterally with some tightness Chest: Clear to auscultation bilaterally CV: RRR, normal S1 and S2, 2/6 SM; no rub or gallop Abdomen: Soft, nontender to palpation, mildly distended, hyperactive bowel sounds; no rebound, rigidity, or guarding Extremities: No cyanosis, clubbing; woody, mild edema Neuro: functional quadriparesis, A+Ox3 Psych: Normal mood and affect Results Laboratory Results: 04/16/17 04:30 04/16/17 04:30 04/16/17 04/16/17 04:30 04:30 WBC 13.0 H RBC 4.04 L Hgb 10.5 L Hct 33.0 L MCV 82 MCH 26.0 L MCHC 31.9 L RDW 17.9 H Plt Count 258 Seg Neutrophils % 79.4 H Lymphocytes % 8.6 L Monocytes % 7.8 Eosinophils % 3.5 Basophils % 0.7 Absolute Neutrophils 10.3 H Absolute Lymphocytes 1.1 Absolute Monocytes 1.0 Absolute Eosinophils 0.5 Absolute Basophils 0.1 Sodium 135.6 L Potassium 4.4 Chloride 97 L Carbon Dioxide 26 Anion Gap 13 BUN 19 Creatinine 0.38 L Est GFR ( Amer) > 60 Est GFR (Non-Af Amer) > 60 Glucose 184 H Calcium 10.0 04/13/17 04/13/17 11:50 11:50 Creatine Kinase 20 L CK-MB (CK-2) 0.42 Troponin I 0.012 Impressions: Chest X-Ray 04/13/17 00:00 IMPRESSION: Left lower lobe pneumonia versus atelectasis. Small left pleural effusion. KUB X-Ray 04/14/17 00:00 IMPRESSION: NO RADIOGRAPHIC EVIDENCE FOR ACUTE ABDOMINAL DISEASE. Qualifiers PATEINT BEING DISCHARGED WITH ANY OF THE FOLLOWING DIAGNOSIS?: No Plan Time Spent: Less than 30 Minutes
[2017-04-16] MEDS: HYDROCODONE/ACETAMINOPHEN 5-325 MG TABLET PO PRN (14:22)
[2017-04-16] MEDS ORDERED: CETIRIZINE 5 MG TABLET PO PRN (14:30)
[2017-04-16] MEDS: POLYETHYLENE GLYCOL 3350 POWDER 17 GM/1 PACKET PO SCH (14:32)
== END 2017-04-16 15:14 | DRG 193 ==
LOC: ER 21:35 → EH 04-09 01:39 → UNDOADMIN 04-09 01:39 → EH 04-09 03:12 → 3N 04-09 05:02
PROVIDERS: ADMIT Family Medicine; ATTEND Family Medicine
DX: J18.1 Lobar pneumonia, unspecified organism (principal); G93.40 Encephalopathy, unspecified; G12.1 Other inherited spinal muscular atrophy; G71.0 Muscular dystrophy; E87.5 Hyperkalemia; I48.0 Paroxysmal atrial fibrillation; I25.10 Atherosclerotic heart disease of native coronary artery without angina pectoris; I10 Essential (primary) hypertension; E11.9 Type 2 diabetes mellitus without complications; K21.9 Gastro-esophageal reflux disease without esophagitis; K44.9 Diaphragmatic hernia without obstruction or gangrene; L30.9 Dermatitis, unspecified; R07.2 Precordial pain; F41.8 Other specified anxiety disorders; E66.9 Obesity, unspecified; I25.2 Old myocardial infarction; Z79.01 Long term (current) use of anticoagulants; Z79.4 Long term (current) use of insulin; Z79.84 Long term (current) use of oral hypoglycemic drugs; Z79.51 Long term (current) use of inhaled steroids; Z79.899 Other long term (current) drug therapy; Z88.2 Allergy status to sulfonamides; Z95.5 Presence of coronary angioplasty implant and graft; Z86.73 Personal history of transient ischemic attack (TIA), and cerebral infarction without residual deficits; Z68.32 Body mass index [BMI] 32.0-32.9, adult
CPT/HCPCS: 36415; 51701; 71010; 74000; 80048; 80053; 80202; 81001; 82272; 82550; 82553; 82565; 82962; 83605; 83735; 84484; 85025; 85610; 85730; 87040; 87070; 87205; 93005; 93010; 94667; 94668; 94799; 96365; 99285; G8996-GN; G8997-GN; G8998-GN; J1815; J1940; J2270; J2543; J3370; J3490; J7030; J7060

== ENCOUNTER 2017-04-18 21:02 | Inpatient (IN) | payer MEDICARE, MEDICAID ==
[2017-04-18] MEDS ORDERED: NORMAL SALINE 1000 ML 2,000 ML IV ONE (21:11)
--- NOTE | 2017-04-18 21:15 | ER Document Report ---
ED General - General Stated Complaint: ALTERED MENTAL STATUS Time Seen by Provider: 04/18/17 21:08 Information source: Emergency Med Personnel Cannot obtain history due to: Unstable vital signs, Altered mental status Notes: Patient is a 71-year-old male who arrives by EMS after they were contacted by the patient's facility for altered mental status. EMS notes that the patient was severely hypotensive in route that they were unable to actually obtain a blood pressure. EMS has no additional meaningful history. Patient himself is extremely altered at time of arrival and unable to provide any additional meaningful history. TRAVEL OUTSIDE OF THE [place] IN LAST 30 DAYS: No - Related Data Allergies/Adverse Reactions: lisinopril Allergy (Unknown, Verified 01/16/17 15:10) Sulfa (Sulfonamide Antibiotics) Allergy (Unknown, Verified 01/16/17 15:10) Past Medical History - General Information source: Emergency Med Personnel Cannot obtain history due to: Unstable vital signs, Altered mental status - Social History Smoking Status: Unknown if Ever Smoked [facility] with: [facility] Family History: Reviewed & Not Pertinent, Other - Hereditary progressive muscular dystrophy - Past Medical History Cardiac Medical History: Reports: Hx Atrial Fibrillation, Hx Coronary Artery Disease, Hx Heart Attack, Hx Hypercholesterolemia, Hx Hypertension, Hx Heart Murmur Denies: Hx Congestive Heart Failure, Hx DVT, Hx Peripheral Vascular Disease, Hx Pulmonary Embolism Pulmonary Medical History: Reports: Hx Asthma, Hx Bronchitis, Hx Pneumonia, Hx Respiratory Failure Denies: Hx COPD, Hx Sleep Apnea, Hx Tuberculosis Neurological Medical History: Reports: Hx Cerebrovascular Accident, Hx Migraine. Denies: Hx Seizures Endocrine Medical History: Reports: Hx Diabetes Mellitus Type 2. Denies: Hx Graves' Disease, Hx Hyperthyroidism, Hx Hypothyroidism Renal/ Medical History: Denies: Hx Benign Prostatic Hyperplasia, Hx End Stage Renal Disease, Hx Kidney Stones, Hx Peritoneal Dialysis Malignancy Medical History: Denies Hx Lung Cancer GI Medical History: Reports: Hx Gastroesophageal Reflux Disease, Hx Hiatal Hernia, Hx Irritable Bowel, Hx Ulcer. Denies: Hx Cirrhosis, Hx Crohn's Disease , Hx Hepatitis, Hx Liver Failure Musculoskeltal Medical History: Reports Hx Arthritis - GOUT, Denies Hx Fibromyalgia, Reports Hx Gout, Denies Hx Multiple Sclerosis, Reports Hx Muscular Dystrophy Skin Medical History: Reports Hx Eczema Psychiatric Medical History: Reports: Hx Anxiety, Hx Depression Denies: Hx Bipolar Disorder, Hx Dementia, Hx Post Traumatic Stress Disorder, Hx Schizophrenia Traumatic Medical History: Denies: Hx Fractures Infectious Medical History: Denies: Hx Hepatitis Past Surgical History: Reports: Hx Cholecystectomy, Other - Stents-coronary bilateral lower extremity, renal artery. Denies: Hx Colostomy, Hx Pacemaker - Immunizations Hx Diphtheria, Pertussis, Tetanus Vaccination: Yes Hx Pneumococcal Vaccination: 11/19/00 Review of Systems - Review of Systems -: Yes ROS unobtainable due to patient's medical condition Physical Exam - Vital signs Vitals: BP Pulse Ox 106/75 98 04/18/17 21:10 04/18/17 21:10 Interpretation: Normal Notes: PHYSICAL EXAMINATION: GENERAL: Chronically ill in appearance, in moderate distress, appears ill HEAD: Atraumatic, normocephalic. EYES: Pupils equal round and reactive to light, extraocular movements intact, sclera anicteric, conjunctiva are normal. ENT: nares patent, oropharynx clear without exudates. Dry mucous membranes. NECK: Supple without lymphadenopathy LUNGS: Breath sounds are diminished at the left base. Moderate tachypnea with a respiratory rate of 28 at time of arrival. HEART: Regular rate and rhythm, systolic ejection murmur 4 out of 6 ABDOMEN: Recurrent abdomen, soft, nontender, normoactive bowel sounds. No guarding, no rebound. No masses appreciated. EXTREMITIES: Trace edema in all 4 extremities equal and symmetric NEUROLOGICAL: No movement to the bilateral lower extremities. Does spontaneously move the bilateral upper extremities. PSYCH: Altered, asking repetitive questions. SKIN: Cool, pale, diaphoretic Course - Re-evaluation Re-evalutation: 04/18/17 21:14 Patient arrives somewhat altered, seems intermittently disoriented consistent with presentation of delirium. Initially hypotensive per EMS they were unable to establish IV access or obtain a blood pressure. Patient arrives pale, diaphoretic, ill in appearance. We are again initially unable to obtain a blood pressure but after placing patient in reverse Trendelenburg we are able to initially get a blood pressure in the low 100 systolic. IV access was established and fluids initiated. [facility] will be obtained as patient recently was just discharged from the hospital with a similar presentation of sepsis in the setting of a left lower lobe pneumonia. Patient is critically ill at this time given hemodynamic instability and will require frequent reassessments. 04/18/17 21:22 Patient's blood pressure is remaining at about 106 systolic on multiple rechecks. Will continue to monitor very closely as he remains altered, mildly combative. 04/18/17 21:51 Patient's initial laboratories demonstrate a prominent leukocytosis and elevated lactate at 3.1 consistent with sepsis. Patient on portable chest x- ray appears to have a persistent left lower lobe pneumonia. He has been started empirically on cefepime and vancomycin. IV fluids are ongoing and he has not had any further bouts of hypotension. 04/18/17 23:20 Patient's blood pressure has dipped into the 80s. His rate has not changed. Will initiate an additional bolus at this time. If this is unsuccessful plan for placement of a central line initiation of pressors 04/19/17 00:34 Patient continued to drop his blood pressures into the 70s sytolic. Due to this the right femoral vein was cannulated with a triple-lumen catheter for initiation of norepinephrine. This proceeded without difficulty or complication. The site was chosen as patient has very poor anatomy for either an internal jugular or subclavian line placement. His blood pressures have now normalized on 8 of norepinephrine. He will require admission to the ICU and remains critically ill at this time. 04/19/17 01:27 Patient's blood pressure remained in the 110s to 120s on 8 or norepinepherine. He has not required up titration. Continues to be encephalopathic although improved after resolution of hypotension - Vital Signs Vital signs: Temp Pulse Resp BP Pulse Ox 100.2 F 20 138/57 H 100 04/19/17 02:49 04/19/17 02:49 04/19/17 02:49 04/19/17 02:35 - Laboratory Result Diagrams: 04/18/17 21:12 04/18/17 21:12 Laboratory results interpreted by me: 04/18/17 04/18/17 04/18/17 21:12 21:12 21:12 WBC 19.4 H RBC 3.84 L Hgb 9.8 L Hct 31.9 L MCH 25.6 L MCHC 30.7 L RDW 17.7 H Seg Neutrophils % 78.2 H Lymphocytes % 6.8 L Absolute Neutrophils 15.2 H Absolute Monocytes 1.9 H Absolute Eosinophils 0.9 H Sodium 127.8 L Potassium 5.9 H Chloride 91 L BUN 27 H Creatinine 0.45 L Glucose 239 H Lactic Acid 3.1 H Direct Bilirubin 0.5 H Alkaline Phosphatase 192 H Creatine Kinase < 20 L Urine Protein Urine Glucose (UA) 04/18/17 04/19/17 21:56 01:35 WBC RBC Hgb Hct MCH MCHC RDW Seg Neutrophils % Lymphocytes % Absolute Neutrophils Absolute Monocytes Absolute Eosinophils Sodium Potassium Chloride BUN Creatinine Glucose Lactic Acid 2.2 H Direct Bilirubin Alkaline Phosphatase Creatine Kinase Urine Protein >=500 H Urine Glucose (UA) 50 H - Diagnostic Test Radiology reviewed: Image reviewed, Reports reviewed Radiology results interpreted by me: 04/19/17 00:35 Chest x-ray: Left lower lobe pneumonia - EKG Interpretation by Me Additional EKG results interpreted by me: 04/19/17 00:36 Accelerated junctional rhythm. Rate 72. No ST elevations or depressions. QTc 438. Procedures - Central Line Right Femoral Time completed: 23:45 Consent obtained: Yes Central line pre-insertion: Chloraprep applied Central line lumen type: Triple Anesthetic type: 1% Lidocaine mL's of anesthesia: 3 Ultrasound guided: Yes CM at insertion site: 30 Line secured with sutures: Yes Central line post-insertion: Blood return from lumens, Biopatch applied, Sutured , Sterile dressing applied Number of attempts: 1 Complications: No Critical Care Note - Critical Care Note Total time excluding time spent on procedures (mins): 85 Comments: Critical care time spent obtaining history from patient or surrogate, discussions with consultants, development of treatment plan with patient or surrogate, evaluation of patient's response to treatment, examination of patient , ordering and performing treatments and interventions, ordering and review of laboratory studies, re-evaluation of patient's condition, ordering and review of radiographic studies and review of old charts Discharge - Discharge Clinical Impression: Acute encephalopathy, Severe sepsis LLL pneumonia Qualifiers: Pneumonia type: due to unspecified organism Qualified Code(s): J18.1 - Lobar pneumonia, unspecified organism Condition: Critical Disposition: ADMITTED INPATIENT Admitting Provider: [facility] Admitted: ICU
[2017-04-18 21:27] LABS: VENOUS BLOOD BASE EXCESS 0.3 mmol/L; VENOUS BLOOD PCO2 53.8 mmHg (35-63); VENOUS BLOOD PH 7.32 (7.30-7.42)
[2017-04-18 21:31] LABS: ABSOLUTE BASOPHILS # (AUTO) 0.1 10^3/uL (0.0-0.2); ABSOLUTE EOSINOPHILS # (AUTO) 0.9 10^3/uL (0.0-0.6); ABSOLUTE LYMPHOCYTES (AUTO) 1.3 10^3/uL (0.5-4.7); ABSOLUTE MONOCYTES (AUTO) 1.9 10^3/uL (0.1-1.4); ABSOLUTE NEUT (AUTO) 15.2 10^3/uL (1.7-8.2); BASOPHILS % (AUTO) 0.5 % (0-2); EOSINOPHILS % (AUTO) 4.6 % (0-6); HEMATOCRIT 31.9 % (37.9-51.0); HEMOGLOBIN 9.8 g/dL (13.5-17.0); HGB HCT DIFFERENCE -2.5; LYMPHOCYTES % (AUTO) 6.8 % (13-45); MEAN CORPUSCULAR HEMOGLOBIN 25.6 pg (27.0-33.4); MEAN CORPUSCULAR HGB CONC 30.7 g/dL (32.0-36.0); MEAN CORPUSCULAR VOLUME 83 fl (80-97); MONOCYTES % (AUTO) 9.9 % (3-13); RED BLOOD COUNT 3.84 10^6/uL (4.35-5.55); RED CELL DISTRIBUTION WIDTH 17.7 % (11.5-14.0); SEGMENTED NEUTROPHILS % (AUTO) 78.2 % (42-78); WHITE BLOOD COUNT 19.4 10^3/uL (4.0-10.5)
[2017-04-18 21:49] LABS: ALANINE AMINOTRANSFERASE 35 U/L (21-72); ALBUMIN 3.5 g/dL (3.5-5.0); ALKALINE PHOSPHATASE 192 U/L (38-126); ANION GAP 10 (5-19); ASPARTATE AMINO TRANSFERASE 23 U/L (17-59); BILIRUBIN,DIRECT 0.5 mg/dL (0.0-0.4); BILIRUBIN,TOTAL 0.7 mg/dL (0.2-1.3); BLOOD UREA NITROGEN 27 mg/dL (7-20); CALCIUM 9.4 mg/dL (8.4-10.2); CARBON DIOXIDE 27 mmol/L (22-30); CHLORIDE 91 mmol/L (98-107); CREATININE RESULT 0.45 mg/dL (0.52-1.25); GLUCOSE 239 mg/dL (75-110); POTASSIUM 5.9 mmol/L (3.6-5.0); SODIUM 127.8 mmol/L (137-145); TOTAL PROTEIN 6.7 g/dL (6.3-8.2)
[2017-04-18] MEDS ORDERED: CEFEPIME 2 GM/D5W RTU 50 ML IV ONE (21:50)
[2017-04-18] MEDS ORDERED: VANCOMYCIN HCL INJ 1000 MG VIAL IV ONE (21:50)
[2017-04-18 21:57] LABS: CREATINE KINASE < 20 U/L (55-170)
[2017-04-18 22:03] LABS: CREATINE KINASE MB < 0.22 ng/mL (<4.55); TROPONIN I < 0.012 ng/mL
--- NOTE | 2017-04-18 22:11 | RADIOLOGY REPORT (SQ) ---
EXAM DESCRIPTION: CHEST SINGLE VIEW COMPLETED DATE/TIME: 04/18/2017 9:53 pm REASON FOR STUDY: sob COMPARISON: 04/13/2017 EXAM PARAMETERS: NUMBER OF VIEWS: One view. TECHNIQUE: Single frontal radiographic view of the chest acquired. RADIATION DOSE: NA LIMITATIONS: None. FINDINGS: LUNGS AND PLEURA: The previously described left basilar densities appear unchanged. MEDIASTINUM AND HILAR STRUCTURES: No masses. Contour normal. HEART AND VASCULAR STRUCTURES: The configuration of the heart and mediastinal structures is unchanged . BONES: No acute findings. HARDWARE: None in the chest. OTHER: No other significant finding. IMPRESSION: No significant interval change. The previously described left basilar densities appear unchanged. The appearance is consistent with a small left pleural effusion and I cannot exclude some associated atelectasis or infiltrate in the left lung base. Other findings as noted above. TECHNICAL DOCUMENTATION: JOB ID: [id number]
[2017-04-18 22:19] LABS: APPEARANCE,URINE SLIGHTLY-CLOUDY; BILIRUBIN,URINE NEGATIVE (NEGATIVE); GLUCOSE, URINE 50 mg/dL (NEGATIVE); KETONES,URINE NEGATIVE (NEGATIVE); LEUKOCYTE ESTERASE,URINE NEGATIVE (NEGATIVE); NITRITE,URINE NEGATIVE (NEGATIVE); PROTEIN,URINE >=500 mg/dL (NEGATIVE); URINE SPECIFIC GRAVITY 1.019; UROBILINOGEN,URINE NEGATIVE mg/dL (<2.0)
[2017-04-18] MEDS ORDERED: NORMAL SALINE 1000 ML 1,000 ML IV ONE (23:19)
[2017-04-18] MEDS ORDERED: NOREPINEPHRINE BITARTRATE INJ/PF 4 MG/4 ML SDV IV ONE (23:51)
[2017-04-19] MEDS ORDERED: NORMAL SALINE 1000 ML 1,000 ML IV ONE ×2 (01:26→23:56)
[2017-04-19] MEDS ORDERED: DEXTROSE 40% GEL 15 GM TUBE PO PRN ×2 (03:01)
[2017-04-19] MEDS ORDERED: DEXTROSE 50%-WATER 25 GM/50 ML DISP.SYRIN IV PRN ×2 (03:01)
[2017-04-19] MEDS ORDERED: GLUCAGON,HUMAN RECOMB 1 MG INJ IM PRN (03:01)
[2017-04-19] MEDS: INSULIN LISPRO 100 UNIT/ML 3 ML VIAL SUBCUT PRN ×2 (04:00→21:57)
[2017-04-19] MEDS ORDERED: IPRATROPIUM/ALBUTEROL 0.5-2.5 MG/3 ML AMPUL NEB PRN (05:10)
[2017-04-19] MEDS ORDERED: NORMAL SALINE 1000 ML 1,000 ML IV PRN (05:10)
[2017-04-19 05:11] LABS: HEMATOCRIT 29.9 % (37.9-51.0); HEMOGLOBIN 9.5 g/dL (13.5-17.0); HGB HCT DIFFERENCE -1.4; MEAN CORPUSCULAR HEMOGLOBIN 26.2 pg (27.0-33.4); MEAN CORPUSCULAR HGB CONC 31.7 g/dL (32.0-36.0); MEAN CORPUSCULAR VOLUME 83 fl (80-97); RED BLOOD COUNT 3.62 10^6/uL (4.35-5.55); RED CELL DISTRIBUTION WIDTH 17.9 % (11.5-14.0); WHITE BLOOD COUNT 20.3 10^3/uL (4.0-10.5)
[2017-04-19] MEDS ORDERED: VANCOMYCIN HCL 0 MG in DEXTROSE 5%-WATER 250 ML IV NR (05:15)
[2017-04-19 05:20] LABS: VENOUS BLOOD BASE EXCESS -4.6 mmol/L; VENOUS BLOOD HCO3 22.5 mmol/L (20-32); VENOUS BLOOD PCO2 51.5 mmHg (35-63); VENOUS BLOOD PH 7.26 (7.30-7.42)
[2017-04-19] MEDS ORDERED: ACETAMINOPHEN 325 MG TABLET PO PRN (05:27)
[2017-04-19] MEDS ORDERED: PHARMACY COMMUNICATION ORDER MC SCH (05:30)
[2017-04-19] MEDS ORDERED: DEXTROSE 5%-WATER 250 ML with NOREPINEPHRINE BITARTRATE 4 MG IV PRN ×4 (05:30→14:26)
[2017-04-19 05:36] LABS: PROTHROMBIN TIME 20.9 SEC (11.4-15.4)
[2017-04-19 05:37] LABS: PARTIAL THROMBOPLASTIN TIME 50.9 SEC (23.5-35.8)
[2017-04-19 05:41] LABS: BASOPHILS % (MANUAL) 0 % (0-2); EOSINOPHILS % (MANUAL) 5 % (0-6); LYMPHOCYTES % (MANUAL) 5 % (13-45); TOTAL CELLS COUNTED 100
[2017-04-19 05:42] LABS: ANISOCYTOSIS 2+; POLYCHROMASIA SLIGHT; TOXIC GRANULATION 1+; TOXIC VACUOLATION PRESENT
[2017-04-19] MEDS ORDERED: NOREPINEPHRINE BITARTRATE INJ/PF 4 MG/4 ML SDV IV ONE (05:46)
[2017-04-19] MEDS ORDERED: CEFEPIME 2 GM/D5W RTU 2 GM/50 ML RTUPB IV ONE (05:47)
[2017-04-19 05:51] LABS: ANION GAP 10 (5-19); BLOOD UREA NITROGEN 27 mg/dL (7-20); CALCIUM 8.7 mg/dL (8.4-10.2); CARBON DIOXIDE 23 mmol/L (22-30); CHLORIDE 98 mmol/L (98-107); CREATININE RESULT 0.42 mg/dL (0.52-1.25); GLUCOSE 230 mg/dL (75-110); MAGNESIUM 2.3 mg/dL (1.6-2.3); POTASSIUM 5.4 mmol/L (3.6-5.0); SODIUM 130.5 mmol/L (137-145)
[2017-04-19] MEDS ORDERED: AZTREONAM INJ 1 GM VIAL IV PRN (06:00)
[2017-04-19] MEDS ORDERED: AZTREONAM 2 GM in DEXTROSE 5%-WATER 100 ML IV SCH (06:00)
[2017-04-19] MEDS ORDERED: CEFEPIME 2 GM/D5W RTU 2 GM/50 ML RTUPB IV SCH ×2 (07:00→14:00)
[2017-04-19] MEDS ORDERED: EPINEPHRINE INJ 1 MG/10 ML DISP.SYRIN ONE (08:52)
[2017-04-19] MEDS ORDERED: SODIUM BICARBONATE 8.4% INJ 50 MEQ/50 ML DISP.SYRIN ONE (08:52)
--- NOTE | 2017-04-19 08:57 | PDOC H&P ---
History of Present Illness Admission Date/PCP: 04/19/17 03:[address] 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 Patient has been discussed with emergency room physician who evaluated the patient. Patient is oriented to the fact that he is in the hospital but was not completely certain as to why. Intermittent, somewhat confused responses to basic questions. No friends or family are present. Old inpatient records are reviewed. EMS was contacted by the senior care for above complaint. Patient was noted to be quite hypotensive en route to the emergency room, to the point where EMS reportedly could not obtain a blood pressure. Emergency room physician notes reviewed. EMS could provide no additional meaningful history. No further information available this point in time. Hospitalized on our service the to the of last month, with transfer diagnoses back to the senior care including left lower lobe pneumonia, with resulting acute encephalopathy. History and physical and transfer summary have been reviewed. Subsequent information listed below related to social history and personal habits, family history etc. obtained by review of the above chart.. Laboratory results are listed in [employer] and are reviewed. X-ray summary results are listed below, with full report(s) reviewed. . EKG reviewed and compared to prior tracing from the of last month. Social history/personal habits: . Resident of [facility]. No use of alcohol tobacco or illicit drugs. Allergies/adverse reactions are listed in [employer] and are reviewed. Home medications initially autopopulated into [employer] may not accurately reflect patient's true medications, dosages, and/or frequencies. digital camera technician to reconcile medications. Unfortunately, patient not able to provide any information related to medications/dosages/frequencies. REVIEW OF SYSTEMS: See history and present illness. No further information available this point in time. PHYSICAL EXAMINATION: 95.3 kg. Height is not listed on the chart. Blood pressure 127/60, with Levophed at 8 mcg/min. Pulse 65 and regular. 100% saturation on 2 L oxygen per nasal cannula. Respirations are 30 and unlabored. Temperature 99.3. Obese otherwise well-developed male who appears a number of years younger than his stated age. Initially asleep, but awakens reasonably easily. Somewhat fatigued appearance. Cooperative. Mildly anxious, without agitation. Skin is warm and dry. No grossly obvious evidence of rash in areas of skin examined. No subcutaneous nodules palpated. ENT: Hearing grossly normal to normal conversation. Tongue midline on protrusion pink and slightly tacky. Eyes: No scleral icterus. Pupils equal and reactive to light at 4 mm. [place] conjunctivae. Neck is supple and nontender to gentle active range of motion and palpation. Midline trachea. No palpable thyroid nodule mass enlargement or tenderness. Lymphatic: No palpable cervical or clavicular nodes. Neck and lymphatic exams limited by patient body habitus. Psychiatric: Difficult to adequately evaluate due to his intermittent confusion. See above comments. Lungs: Auscultation reveals equal breath sounds bilaterally. No use of accessory respiratory muscles. Possibly faint coarse breath sounds, left base. Cardiovascular: Heart regular rate and rhythm, without gallop murmur or rub. No carotid or abdominal aortic bruits. Bilateral symmetric slightly pitting calf ankle and pedal edema. Not sure I can palpate dorsalis pedis and posterior tibial pulses on either side, but acceptable capillary refill at toes. Abdomen:soft somewhat obese nontender with occasional bowel sounds. Unable to adequately evaluate abdomen for masses or organomegaly due to body habitus. Extremities: Feet are warm and dry. No calf tenderness to compression. No grossly obvious visual evidence of calf swelling. Neurologic: Patellar reflexes absent. Absent Babinski. Light touch is intact at feet. Due to underlying muscular dystrophy, has no motor function in upper or lower extremities. Past Medical History Past Medical History: Please refer to past medical history documentation in the above-noted recent history and physical exam. No further information available this point in time. Past Surgical History Past Surgical History: Reports: Cholecystectomy, Other - Stents-coronary bilateral lower extremity, renal artery Social History Information Source: Emergency Med Personnel, [facility] Records Lives with: Skilled Nursing Smoking Status: Unknown if Ever Smoked Frequency of Alcohol Use: None Hx Recreational Drug Use: No Drugs: None Hx Prescription Drug Abuse: No - Advance Directive Resuscitation Status: Full Code Surrogate healthcare decision maker:: Brother Family History Parental Family History Reviewed: Yes - Mother of leukemia, father of myocardial infarction. Children Family History Reviewed: NA Sibling(s) Family History Reviewed.: Yes - 2 sisters with cancer. Medication/Allergy Home Medications: Acetaminophen [Tylenol 325 mg Tablet] 650 mg PO Q4HP PRN 04/19/17 Albuterol Sulfate [Ventolin HFA MDI 18 GM] 2 puff IH Q4HP PRN 04/19/17 Amox Tr/Potassium Clavulanate [Augmentin 875-125 mg Tablet] 1 tab PO Q12 Apixaban [Eliquis 5 mg Tablet] 5 mg PO BID 04/19/17 Atorvastatin Calcium [Lipitor 80 mg Tablet] 80 mg PO QHS 04/19/17 Bisacodyl [Dulcolax 5 Mg Tablet] 10 mg PO DAILYP PRN 04/19/17 Calcium Carbonate [Os-Cesario 500 mg Tablet (Oyster-Shell)] 500 mg PO DAILY Calcium Carbonate [Tums Chewable 500 mg Tab.chew] 500 mg PO MEALSHS 04/19/17 Cepacol Extra Strength Lozenge(Benzocaine 15mg/Menthol 3.6mg) 1 ea PO Q2HP PRN 04/19/17 Cyclobenzaprine HCl [Flexeril 5 mg Tablet] 5 mg PO Q8HP PRN 04/19/17 Dextran 70/Hypromellose [Artificial Tears Eye Drops] 1 drop OU DAILYP PRN Diltiazem HCl [Cardizem Cd 120 mg Capsule] 1 cap.sr PO DAILY 04/19/17 Docusate Sodium [Colace 100 mg Capsule] 100 mg PO BID 04/19/17 Duloxetine HCl [Cymbalta] 60 mg PO DAILY 04/19/17 Gabapentin [Neurontin] 800 mg PO Q8 04/19/17 Gluc Oxid/l-Peroxid/Muramidase [Biotene Mouthwash] 15 ml PO QIDP PRN 04/19/17 Hydrocodone/Acetaminophen [[place] 5-325 mg Tablet] 1 tab PO Q4HP PRN 04/19/17 Hydrocortisone Lotion 1% 1 applic TP TID 04/19/17 Hydroxyzine HCl [Atarax 25 mg Tablet] 1 tab PO QHS 04/19/17 Insulin Lispro [Humalog Insulin 100 Unit/1 ml 3 ml Vial] 5 unit SUBCUT BIDBS 12/05 Isosorbide Mononitrate [Imdur 30 mg Tablet.er] 30 mg PO DAILY 04/19/17 Levocetirizine Dihydrochloride [Xyzal] 5 mg PO DAILYP PRN 04/19/17 Loperamide HCl [Loperamide] 2 mg PO Q4HP PRN 04/19/17 Lorazepam [Ativan 0.5 mg Tablet] 0.5 mg PO QHS 04/19/17 Magnesium Oxide [Mag-Ox 400 mg Tablet] 400 mg PO QHS 04/19/17 Metformin HCl [Glucophage] 1,000 mg PO WSUPPER 04/19/17 Metoprolol Tartrate [Lopressor 100 mg Tablet] 100 mg PO Q12 04/19/17 Montelukast Sodium [Singulair 10 mg Tablet] 10 mg PO QHS 04/19/17 Nitroglycerin [Nitrostat 0.4 mg (1/150 Gr) Tabs 25/Bottle] 1 tab SL Q5MP PRN 12/05 Promethazine HCl [Phenergan 25 mg Tablet] 25 mg PO Q4HP PRN 04/19/17 Psyllium Husk [Metamucil] 0.52 gm PO BIDP PRN 04/19/17 Simethicone [Mylicon 80 mg Chewable Tablet] 80 mg PO DAILYP PRN 04/19/17 Sitagliptin Phosphate [Januvia] 100 mg PO DAILY 04/19/17 Tamsulosin HCl [Flomax 0.4 mg Cap.sr] 0.4 mg PO QHS 04/19/17 Allergies/Adverse Reactions: lisinopril Allergy (Unknown, Verified 01/16/17 15:10) Sulfa (Sulfonamide Antibiotics) Allergy (Unknown, Verified 01/16/17 15:10) Physical Exam Vital Signs: Temp Pulse Resp BP Pulse Ox 99.2 F 26 H 144/72 H 99 04/19/17 05:02 04/19/17 05:02 04/19/17 05:02 04/19/17 05:02 Intake & Output 04/18/17 04/19/17 04/20/17 00:59 00:59 00:59 Weight 95.254 kg Results Laboratory Results: 04/19/17 04/19/17 04/19/17 04:47 04:47 04:47 Seg Neutrophils % Not Reportable Lymphocytes % Not Reportable Monocytes % Not Reportable Eosinophils % Not Reportable Basophils % Not Reportable Absolute Neutrophils Not Reportable Absolute Lymphocytes Not Reportable Absolute Monocytes Not Reportable Absolute Eosinophils Not Reportable Absolute Basophils Not Reportable VBG pH 7.26 L VBG pCO2 51.5 VBG HCO3 22.5 VBG Base Excess -4.6 Sodium Cancelled Potassium Cancelled Chloride Cancelled Carbon Dioxide Cancelled Anion Gap Cancelled BUN Cancelled Creatinine Cancelled Est GFR ( Amer) Cancelled Est GFR (Non-Af Amer) Cancelled Glucose Cancelled Calcium Cancelled Magnesium Cancelled Impressions: Chest X-Ray 04/18/17 21:10 IMPRESSION: No significant interval change. The previously described left basilar densities appear unchanged. The appearance is consistent with a small left pleural effusion and I cannot exclude some associated atelectasis or infiltrate in the left lung base. Other findings as noted above. Assessment & Plan - Diagnosis (1) Acute encephalopathy Is this a current diagnosis for this admission?: YesPlan: Likely secondary to underlying septic shock and pneumonia. Should improve with time and treatment. (2) LLL pneumonia Qualifiers: Pneumonia type: due to unspecified organism Qualified Code(s): J18.1 - Lobar pneumonia, unspecified organism Is this a current diagnosis for this admission?: YesPlan: Patient will be admitted under pneumonia protocol. Incentive spirometry twice a day. As needed DuoNeb's. Antibiotics will consist of intravenous vancomycin, along with cefepime and aztreonam, reflecting his underlying septic shock, along with recent hospital stay. Pharmacy to assist with dosing. Pulmonology consult. Knee high SCDs for DVT prophylaxis; with patient on systemic anticoagulation, no need for Lovenox or heparin. Impression and plans were discussed with patient who concurs. Time spent in evaluation and management of patient: 67 critical-care minutes. (3) Septic shock Is this a current diagnosis for this admission?: YesPlan: Due to underlying pneumonia. Continue Levophed. ICU admission. (4) Atrial fibrillation Qualifiers: Atrial fibrillation type: unspecified Qualified Code(s): I48.91 - Unspecified atrial fibrillation Is this a current diagnosis for this admission?: No (5) Chronic anticoagulation Is this a current diagnosis for this admission?: YesPlan: Resume home medications as appropriate once these have been determined and reviewed. (6) Diabetes mellitus type 2 in obese Is this a current diagnosis for this admission?: YesPlan: Accu-Cheks with appropriate sliding scale coverage. Resume home medications as appropriate once these have been determined and reviewed. - Inpatient Certification Based on my medical assessment, after consideration of the patient's comorbidities, presenting symptoms, or acuity I expect that the services needed warrant INPATIENT care.: Yes I certify that my determination is in accordance with my understanding of Medicare's requirements for reasonable and necessary INPATIENT services [42 CFR 412.3e].: Yes Medical Necessity: Need Close Monitoring Due to Risk of Patient Decompensation, Need For IV Fluids, Need For Continuous Telemetry Monitoring, Need for Nebulizer Therapy and Monitoring of Response, Need for IV Antibiotics, Risk of Diagnosis Which Will Require Inpatient Eval/Care/Monitoring Post Hospital Care: D/C or Transfer Summary
--- NOTE | 2017-04-19 09:54 | EKG REPORT ---
SEVERITY:- ABNORMAL ECG - ACCELERATED JUNCTIONAL RHYTHM NONSPECIFIC T ABNORMALITIES, LATERAL LEADS : Confirmed by: Ochoa Sharp 19-Apr-2017 09:53:38
[2017-04-19] MEDS ORDERED: [UNRECOGNIZED DRUG - OTHER] PO PRN (12:06)
[2017-04-19] MEDS ORDERED: (PENDING PHARMACY ID) (Psyllium Husk [Metamucil] 0.52 GM) PO PRN (12:06)
[2017-04-19] MEDS ORDERED: NITROGLYCERIN 0.4 MG/TAB 25 TAB/BOTTLE SL PRN (12:06)
[2017-04-19] MEDS ORDERED: (PENDING PHARMACY ID) (Cyclobenzaprine Hcl [Flexeril 5 Mg Tablet] 5 MG) PO PRN (12:06)
[2017-04-19] MEDS ORDERED: HYDROCODONE/ACETAMINOPHEN 5-325 MG TABLET PO PRN (12:06)
[2017-04-19] MEDS ORDERED: SIMETHICONE 80 MG TAB.CHEW PO PRN (12:06)
[2017-04-19] MEDS ORDERED: DEXTRAN OU PRN (12:06)
[2017-04-19] MEDS ORDERED: BENZOCAINE PO PRN (12:06)
[2017-04-19] MEDS ORDERED: HYPROMELLOSE OU PRN (12:06)
[2017-04-19] MEDS ORDERED: BISACODYL 5 MG TABEC PO PRN (12:06)
[2017-04-19] MEDS ORDERED: MENTHOL PO PRN (12:06)
[2017-04-19] MEDS ORDERED: PSYLLIUM SEED-SF 5.85 GM PACKET PO PRN ×2 (12:23)
[2017-04-19] MEDS ORDERED: CETIRIZINE 10 MG TABLET PO PRN (12:28)
[2017-04-19] MEDS ORDERED: POLYVINYL ALCOHOL 1.4% OPH SOLN 15 ML OU PRN (12:36)
[2017-04-19] MEDS ORDERED: CYCLOBENZAPRINE HCL 10 MG TABLET PO PRN (12:37)
[2017-04-19] MEDS ORDERED: BENZOCAINE/MENTHOL SORE THROAT LOZENGE BUCCAL PRN (12:39)
--- NOTE | 2017-04-19 12:41 | PDOC CONSULTATION ---
Consultation Consult Date: 04/19/17 Attending physician:: STACY LUI Consult reason:: resp fail History of Present Illness Admission Date/PCP: 04/19/17 05:10 History of Present Illness: MEAGHAN SALAMANCA is a 71 year old obese male with underlying type 2 diabetes mellitus, bedbound due to progressive muscular dystrophy, and with underlying asthma, but no COPD or sleep apnea, who presents to the emergency room from the senior living for evaluation of above complaint. Patient is oriented to the fact that he is in the hospital but could not be completely certain as to why. Intermittent somewhat confused responses to basic questions. No friends or family are present. Old inpatient records are reviewed. He states that he has smoked 2-3 packs per day for 45 years but has not smoked in the last 5 years. He admits to exposure to passive smoke as a child as well as an adult. Past Medical History Cardiac Medical History: Reports: Atrial Fibrillation, Coronary Artery Disease, Myocardial Infarction, Hyperlipidema, Hypertension, Heart Murmur Denies: Congestive Heart Failure, DVT, Peripheral Vascular Disease, Pulmonary Embolism Pulmonary Medical History: Reports: Asthma, Bronchitis, Pneumonia, Respiratory Failure Denies: Chronic Obstructive Pulmonary Disease (COPD), Sleep Apnea, Tuberculosis Neurological Medical History: Reports: Migraine Denies: Seizures Endocrine Medical History: Reports: Diabetes Mellitus Type 2 Denies: Hyperthyroidism, Hypothyroidism Renal/ Medical History: Denies: End Stage Renal Disease Malignancy Medical History: Denies: Lung Cancer GI Medical History: Reports: Gastroesophageal Reflux Disease, Hiatal Hernia Denies: Cirrhosis, Crohn's Disease, Hepatitis Musculoskeltal Medical History: Reports: Arthritis - GOUT, Gout Denies: Fibromyalgia Skin Medical History: Reports: Eczema Psychiatric Medical History: Reports: Depression Denies: Bipolar Disorder, Dementia, Post Traumatic Stress Disorder Hematology: Reports: Anemia Past Surgical History Past Surgical History: Reports: Cholecystectomy, Other - Stents-coronary bilateral lower extremity, renal artery Denies: Colostomy, Pacemaker Social History Information Source: Patient, [facility] Lives with: [facility] Smoking Status: Former Smoker Cigarettes Packs Per Day: 2 Number of Years Smokin Last Time Smoked: 11 Passive smoke exposure as: Both Frequency of Alcohol Use: None Hx Recreational Drug Use: No Drugs: None Hx Prescription Drug Abuse: No Family History Family History: Reviewed & Not Pertinent, Other - Hereditary progressive muscular dystrophy Parental Family History Reviewed: Yes Children Family History Reviewed: Yes Sibling(s) Family History Reviewed.: Yes Medication/Allergy Home Medications: Acetaminophen [Tylenol 325 mg Tablet] 650 mg PO Q4HP PRN 04/19/17 Albuterol Sulfate [Ventolin HFA MDI 18 GM] 2 puff IH Q4HP PRN 04/19/17 Amox Tr/Potassium Clavulanate [Augmentin 875-125 mg Tablet] 1 tab PO Q12 Apixaban [Eliquis 5 mg Tablet] 5 mg PO BID 04/19/17 Atorvastatin Calcium [Lipitor 80 mg Tablet] 80 mg PO QHS 04/19/17 Bisacodyl [Dulcolax 5 Mg Tablet] 10 mg PO DAILYP PRN 04/19/17 Calcium Carbonate [Os-Cesario 500 mg Tablet (Oyster-Shell)] 500 mg PO DAILY Calcium Carbonate [Tums Chewable 500 mg Tab.chew] 500 mg PO MEALSHS 04/19/17 Cepacol Extra Strength Lozenge(Benzocaine 15mg/Menthol 3.6mg) 1 ea PO Q2HP PRN 04/19/17 Cyclobenzaprine HCl [Flexeril 5 mg Tablet] 5 mg PO Q8HP PRN 04/19/17 Dextran 70/Hypromellose [Artificial Tears Eye Drops] 1 drop OU DAILYP PRN Diltiazem HCl [Cardizem Cd 120 mg Capsule] 1 cap.sr PO DAILY 04/19/17 Docusate Sodium [Colace 100 mg Capsule] 100 mg PO BID 04/19/17 Duloxetine HCl [Cymbalta] 60 mg PO DAILY 04/19/17 Gabapentin [Neurontin] 800 mg PO Q8 04/19/17 Gluc Oxid/l-Peroxid/Muramidase [Biotene Mouthwash] 15 ml PO QIDP PRN 04/19/17 Hydrocodone/Acetaminophen [[place] 5-325 mg Tablet] 1 tab PO Q4HP PRN 04/19/17 Hydrocortisone Lotion 1% 1 applic TP TID 04/19/17 Hydroxyzine HCl [Atarax 25 mg Tablet] 1 tab PO QHS 04/19/17 Insulin Lispro [Humalog Insulin 100 Unit/1 ml 3 ml Vial] 5 unit SUBCUT BIDBS 12/05 Isosorbide Mononitrate [Imdur 30 mg Tablet.er] 30 mg PO DAILY 04/19/17 Levocetirizine Dihydrochloride [Xyzal] 5 mg PO DAILYP PRN 04/19/17 Loperamide HCl [Loperamide] 2 mg PO Q4HP PRN 04/19/17 Lorazepam [Ativan 0.5 mg Tablet] 0.5 mg PO QHS 04/19/17 Magnesium Oxide [Mag-Ox 400 mg Tablet] 400 mg PO QHS 04/19/17 Metformin HCl [Glucophage] 1,000 mg PO WSUPPER 04/19/17 Metoprolol Tartrate [Lopressor 100 mg Tablet] 100 mg PO Q12 04/19/17 Montelukast Sodium [Singulair 10 mg Tablet] 10 mg PO QHS 04/19/17 Nitroglycerin [Nitrostat 0.4 mg (1/150 Gr) Tabs 25/Bottle] 1 tab SL Q5MP PRN 12/05 Promethazine HCl [Phenergan 25 mg Tablet] 25 mg PO Q4HP PRN 04/19/17 Psyllium Husk [Metamucil] 0.52 gm PO BIDP PRN 04/19/17 Simethicone [Mylicon 80 mg Chewable Tablet] 80 mg PO DAILYP PRN 04/19/17 Sitagliptin Phosphate [Januvia] 100 mg PO DAILY 04/19/17 Tamsulosin HCl [Flomax 0.4 mg Cap.sr] 0.4 mg PO QHS 04/19/17 Allergies/Adverse Reactions: lisinopril Allergy (Unknown, Verified 01/16/17 15:10) Sulfa (Sulfonamide Antibiotics) Allergy (Unknown, Verified 01/16/17 15:10) Physical Exam Vital Signs: Temp Pulse Resp BP Pulse Ox 99.1 F 17 130/64 H 100 04/19/17 07:57 04/19/17 07:57 04/19/17 07:57 04/19/17 07:57 General appearance: PRESENT: no acute distress, disheveled, obese, well- developed Head exam: PRESENT: atraumatic, normocephalic Eye exam: PRESENT: conjunctiva pale, EOMI Mouth exam: PRESENT: moist, neck supple Neck exam: ABSENT: carotid bruit, JVD, lymphadenopathy, thyromegaly Respiratory exam: PRESENT: decreased breath sounds, prolonged expiratory phas, rhonchi, symmetrical, unlabored Cardiovascular exam: PRESENT: RRR, +S1, +S2 Pulses: PRESENT: normal radial pulses GI/Abdominal exam: PRESENT: normal bowel sounds, soft. ABSENT: distended, guarding, mass, organolmegaly, rebound, tenderness Rectal exam: PRESENT: deferred Musculoskeletal exam: PRESENT: normal inspection Neurological exam: PRESENT: awake Skin exam: PRESENT: dry Results Laboratory Results: 04/19/17 05:21 04/19/17 05:21 Sodium 130.5 L Potassium 5.4 H Chloride 98 Carbon Dioxide 23 Anion Gap 10 BUN 27 H Creatinine 0.42 L Est GFR ( Amer) > 60 Est GFR (Non-Af Amer) > 60 Glucose 230 H Calcium 8.7 Magnesium 2.3 Impressions: Chest X-Ray 04/18/17 21:10 IMPRESSION: No significant interval change. The previously described left basilar densities appear unchanged. The appearance is consistent with a small left pleural effusion and I cannot exclude some associated atelectasis or infiltrate in the left lung base. Other findings as noted above. Assessment & Plan - Diagnosis (1) Acute encephalopathy Is this a current diagnosis for this admission?: YesPlan: Confused (2) Septic shock Is this a current diagnosis for this admission?: YesPlan: Currently on vasopressor agent (3) Obesity (BMI 30.0-34.9) Is this a current diagnosis for this admission?: Yes (4) Sleep-disordered breathing Is this a current diagnosis for this admission?: Yes (5) Spinal muscular atrophy type III Is this a current diagnosis for this admission?: Yes - Time Critical Time spent with patient: 25-34 minutes - 55 minutes
[2017-04-19] MEDS ORDERED: APIXABAN 5 MG TABLET PO ONE (12:45)
[2017-04-19] MEDS: GABAPENTIN 400 MG CAPSULE PO SCH ×2 (13:21→21:35)
[2017-04-19] MEDS ORDERED: HYDROCORTISONE 1% TP SCH (14:00)
[2017-04-19] MEDS ORDERED: DILTIAZEM HCL INJ 25 MG/5 ML VIAL ONE (14:05)
[2017-04-19] MEDS ORDERED: DILTIAZEM HCL/D5W 125 ML IV PRN (14:26)
[2017-04-19] MEDS ORDERED: DILTIAZEM HCL INJ 25 MG/5 ML VIAL IV ONE (14:45)
[2017-04-19] MEDS: CEFEPIME HCL 2 GM in DEXTROSE 5%-WATER 50 ML IV SCH ×2 (14:52→21:33)
[2017-04-19] MEDS: AZTREONAM 1 GM in DEXTROSE 5%-WATER 50 ML IV SCH ×2 (14:52→21:33)
[2017-04-19] MEDS: HYDROCORTISONE 1% CREAM 28.35 GM TP SCH ×2 (14:54→17:49)
[2017-04-19] MEDS ORDERED: LORAZEPAM 0.5 MG TABLET PO ONE (15:15)
[2017-04-19] MEDS: ACETAMINOPHEN 325 MG TABLET PO PRN ×2 (15:25→22:43)
[2017-04-19] MEDS ORDERED: HYDROCORTISONE SOD SUCCINATE INJ/PF 100 MG/2 ML SDV IV ONE (15:27)
[2017-04-19] MEDS: CALCIUM CARBONATE 500 MG TAB.CHEW PO SCH ×2 (16:44→21:34)
[2017-04-19] MEDS ORDERED: INSULIN LISPRO 100 UNIT/ML 3 ML VIAL SUBCUT SCH (17:00)
[2017-04-19] MEDS ORDERED: METFORMIN HCL 500 MG TABLET PO SCH (17:00)
[2017-04-19 17:08] LABS: ANION GAP 10 (5-19); BLOOD UREA NITROGEN 24 mg/dL (7-20); CARBON DIOXIDE 18 mmol/L (22-30); CHLORIDE 100 mmol/L (98-107); CREATININE RESULT 0.41 mg/dL (0.52-1.25); GLUCOSE 209 mg/dL (75-110); MAGNESIUM 2.1 mg/dL (1.6-2.3); POTASSIUM 4.8 mmol/L (3.6-5.0); SODIUM 128.3 mmol/L (137-145)
--- NOTE | 2017-04-19 17:38 | PROGRESS NOTE E ---
Progress Note NAME: MEAGHAN SALAMANCA : 1945 AGE: 71Y DATE: 04/19/2017 ROOM: 601 SUBJECTIVE: The patient is lying in bed. The patient has been seen on three separate occasions on rounds. Overall, the patient had improved through the day and was requiring less pressors. The patient actually was removed from Levophed for about an hour. Afterwards, the patient did convert to AFib with a rapid ventricular response. The patient was given a bolus of Cardizem without response and was started on a low dose drip. Subsequently, the patient's blood pressures also trended down rapidly and the patient had to be resumed on vasopressor support. Upon review of the patient's records, it appears that he has not missed any of his anticoagulation and received his Eliquis last night and then received a dose today. The patient has had no reported episodes of vomiting nor diarrhea. The patient did have some episodes of tachypnea; however, it did improve with supplemental O2. The patient did have a low-grade temperature and the patient does not voice any other concerns at this time. REVIEW OF SYSTEMS: The rest of the review of systems negative. MEDICATION: Has been reviewed. OBJECTIVE: GENERAL: This patient is a 71-year-old male who is awake, alert. He is oriented to person, place, time and situation, just a little delayed. Does not appear to be in any respiratory distress. VITAL SIGNS: Temperature is 99.0, pulse 99, respirations 22, blood pressure is 95/70, oxygen saturation is 98% on 2 L of nasal cannula. SKIN: Pale, dry. He is not diaphoretic. HEENT: Pupils are reactive. Conjunctivae pale. Sclera is not icteric. There is no JVD. CARDIOVASCULAR: Heart is irregularly irregular without murmur or rub. CHEST: Diminished, symmetrical, unlabored. ABDOMEN: Soft, nontender, nondistended. BACK: No CVA tenderness or sacral edema. EXTREMITIES: No clubbing, cyanosis, edema but very cold extremities. PSYCHIATRIC: Appropriate affect, pleasant mood. The patient appears to be at his baseline comparison. DIAGNOSTICS: Lab values are as follows: Hematology obtained on 04/19/2017: WBCs of 20.3, hemoglobin is 9.5, hematocrit 29.9, platelet count is 400,000. VBG obtained on 04/19/2017: PH of 7.26, PCO2 of 61.5, bicarbonate is 22.5. Chemistry obtained on 04/19/2017: Sodium is 130, potassium 5.4, chloride is 98, carbon dioxide is 23, BUN 27, creatinine is 0.42, glucose 185, calcium is 8.7, magnesium is 2.3. Blood cultures done on 04/19/2017 are pending. Urine culture obtained on 04/18/2017, reveals no growth. IMPRESSION AND PLAN: 1. LEFT BASILAR PNEUMONIA. This is consistent with the patient's previous admission; however, given the patient's recurrent presentation, we will consult Speech Therapy for evaluation and concern for underlying reflux aspiration. Will continue PPI therapy and follow. 2. SEPTIC SHOCK. The patient is currently requiring vasopressors; however, given the patient's recurrent illness and possible transient adrenal insufficiency, will give a stress dose of steroids and follow. 3. ACUTE ON CHRONIC HYPOXEMIC RESPIRATORY FAILURE. Will continue supplemental O2 and this is secondary to the above. 4. CHRONIC OBSTRUCTIVE PULMONARY DISEASE. Will follow. 5. ATRIAL FIBRILLATION, RAPID VENTRICULAR RESPONSE. The patient did not respond to push Cardizem, will start a low dose drip for now and titrate as the patient's blood pressure can tolerate. 6. HYPERLIPIDEMIA. We will continue statin. 7. CORONARY ARTERY DISEASE. Will continue the patient's home medications. 8. CHRONIC PAIN. Will continue the patient's home medications. 9. DIABETES MELLITUS TYPE 2. Will continue sliding scale coverage, hold basal insulin until the patient has taken appropriate p.o. 10. BENIGN PROSTATIC HYPERPLASIA. Will continue the patient's home medications. The patient currently dose have a Jalloh in place. 11. DVT PROPHYLAXIS. The patient is anticoagulated with Eliquis. DISPOSITION: The patient is a full code pending patient's symptomatology and diagnostic findings. The patient will be reevaluated as needed. Time spent on this critical care visit including assessment, plan, physical examination, patient education, review of records and collaboration is 45 minutes. DICTATING PHYSICIAN: FRED CORDON NP [id number] PHY#: [id number] ID: [id number] JOB#: [id number] ACCT: [id number] cc: >
[2017-04-19] MEDS ORDERED: SODIUM CHLORIDE 3% FOR INHALATION 15 ML AMPUL NEB ONE (17:58)
[2017-04-19] MEDS ORDERED: DOCUSATE SODIUM 100 MG CAPSULE PO SCH (18:00)
[2017-04-19] MEDS ORDERED: LACTOBACILLUS ACIDOPHILUS 250 MG TAB PO SCH (18:00)
[2017-04-19] MEDS ORDERED: APIXABAN 5 MG TABLET PO SCH ×2 (18:00→22:00)
[2017-04-19] MEDS ORDERED: VANCOMYCIN HCL 1,000 MG in DEXTROSE 5%-WATER 250 ML IV SCH (18:00)
[2017-04-19] MEDS ORDERED: TAMSULOSIN HCL 0.4 MG CAP.SR.24H PO SCH (22:00)
[2017-04-19] MEDS ORDERED: ATORVASTATIN CALCIUM 80 MG TABLET PO SCH (22:00)
[2017-04-19] MEDS ORDERED: HYDROXYZINE PAMOATE 25 MG CAPSULE PO SCH (22:00)
[2017-04-19] MEDS ORDERED: FAMOTIDINE 20 MG TABLET PO SCH (22:00)
[2017-04-19] MEDS ORDERED: LORAZEPAM 0.5 MG TABLET PO SCH (22:00)
[2017-04-19] MEDS ORDERED: GUAIFENESIN 600 MG TABLET.SA PO SCH (22:00)
[2017-04-19] MEDS ORDERED: METOPROLOL TARTRATE 100 MG TABLET PO SCH (22:00)
[2017-04-19] MEDS ORDERED: MAGNESIUM OXIDE 400 MG TABLET PO SCH (22:00)
[2017-04-19] MEDS ORDERED: MONTELUKAST SODIUM 10 MG TABLET PO SCH (22:00)
[2017-04-19] MEDS ORDERED: HYDROCORTISONE SOD SUCCINATE INJ/PF 100 MG/2 ML SDV IV SCH (22:00)
[2017-04-19] MEDS ORDERED: (PENDING PHARMACY ID) (Hydroxyzine Hcl [Atarax 25 Mg Tablet] 1 TAB) PO SCH (22:00)
[2017-04-20 00:15] LABS: VENOUS BLOOD BASE EXCESS -12.8 mmol/L; VENOUS BLOOD HCO3 14.7 mmol/L (20-32); VENOUS BLOOD PCO2 40.2 mmHg (35-63)
[2017-04-20 00:25] LABS: VENOUS BLOOD PH 7.18 (7.30-7.42)
[2017-04-20 00:30] LABS: ANION GAP 11 (5-19); BLOOD UREA NITROGEN 24 mg/dL (7-20); CARBON DIOXIDE 14 mmol/L (22-30); CHLORIDE 103 mmol/L (98-107); CREATININE RESULT 0.44 mg/dL (0.52-1.25); GLUCOSE 307 mg/dL (75-110); POTASSIUM 5.4 mmol/L (3.6-5.0); SODIUM 127.9 mmol/L (137-145)
[2017-04-20 00:38] LABS: CALCIUM 6.8 mg/dL (8.4-10.2)
[2017-04-20 00:41] LABS: HEMATOCRIT 28.6 % (37.9-51.0); HEMOGLOBIN 8.6 g/dL (13.5-17.0); HGB HCT DIFFERENCE -2.8; MEAN CORPUSCULAR HEMOGLOBIN 25.4 pg (27.0-33.4); MEAN CORPUSCULAR VOLUME 85 fl (80-97); RED BLOOD COUNT 3.37 10^6/uL (4.35-5.55); RED CELL DISTRIBUTION WIDTH 18.2 % (11.5-14.0); WHITE BLOOD COUNT 20.6 10^3/uL (4.0-10.5)
[2017-04-20 00:44] LABS: BAND NEUTROPHILS % (MANUAL) 1 % (3-5); BASOPHILS % (MANUAL) 0 % (0-2); EOSINOPHILS % (MANUAL) 0 % (0-6); LYMPHOCYTES % (MANUAL) 2 % (13-45); TOTAL CELLS COUNTED 100
[2017-04-20 00:45] LABS: ANISOCYTOSIS 2+; BURR CELLS 1+; HYPOCHROMASIA SLIGHT; OVALOCYTES SLIGHT; POIKILOCYTOSIS 1+; POLYCHROMASIA SLIGHT; SCHISTOCYTES SLIGHT; TOXIC GRANULATION SLIGHT
[2017-04-20] MEDS ORDERED: GABAPENTIN 400 MG CAPSULE PO ONE (00:45)
[2017-04-20] MEDS ORDERED: DOPAMINE HCL/DEXTROSE 5%-WATER 800 MG/250 ML RTUINJ IV ONE (00:47)
[2017-04-20] MEDS ORDERED: PHENYLEPHRINE HCL INJ/PF 10 MG/1 ML SDV ONE (00:50)
[2017-04-20] MEDS ORDERED: PROPOFOL INJ 200 MG/20 ML VIAL IV ONE (01:03)
[2017-04-20] MEDS ORDERED: VASOPRESSIN INJ 20 UNIT/1 ML VIAL ONE (01:07)
[2017-04-20] MEDS ORDERED: DEXTROSE 5%-WATER 250 ML with PHENYLEPHRINE HCL 40 MG IV PRN ×2 (01:09)
[2017-04-20] MEDS ORDERED: DOPAMINE HCL/DEXTROSE 5%-WATER 250 ML IV PRN (01:09)
--- NOTE | 2017-04-20 01:24 | RADIOLOGY REPORT (SQ) ---
EXAM DESCRIPTION: CHEST SINGLE VIEW COMPLETED DATE/TIME: 04/20/2017 1:02 am REASON FOR STUDY: intubation COMPARISON: Chest x-ray 04/18/2017. EXAM PARAMETERS: NUMBER OF VIEWS: One view TECHNIQUE: Single frontal radiograph of the chest. RADIATION DOSE: N/A LIMITATIONS: The patient is rotated. A pacemaker pad is partially obscuring the right hemithorax. FINDINGS: TEMPORARY SUPPORT DEVICES:The endotracheal tube has the tip approximately 7.5 cm above the rj. LUNGS AND PLEURA: There is a small left pleural effusion with left basilar atelectasis. There is douglas ateral interstitial prominence, suggestive of interstitial edema. No pneumothorax. MEDIASTINUM AND HILAR STRUCTURES: No masses. Contour normal. HEART AND VASCULAR STRUCTURES: The heart is enlarged. There is mild vascular congestion. BONES: No acute findings. OTHER: A pacemaker pad is partially obscuring the right hemithorax. IMPRESSION: Cardiomegaly with mild vascular congestion and interstitial edema. Small left pleural e ffusion with left basilar atelectasis. High location of the endotracheal tube, advancement recommended. RECOMMENDATIONS: Advancement of the endotracheal tube by approximately 3 cm. TECHNICAL DOCUMENTATION: JOB ID: [id number] [place]-[id number] 2010 [employer]- All Rights Reserved
[2017-04-20] MEDS ORDERED: DEXTROSE 5%-WATER 250 ML with VASOPRESSIN 100 UNIT IV PRN ×2 (01:26)
[2017-04-20] MEDS ORDERED: ATROPINE SULFATE INJ 1 MG/1 ML VIAL IV ONE (01:26)
[2017-04-20] MEDS ORDERED: ATROPINE SULFATE INJ 1 MG/1 ML VIAL ONE (01:27)
[2017-04-20] MEDS ORDERED: SODIUM BICARBONATE 8.4% INJ 50 MEQ/50 ML DISP.SYRIN ONE (01:39)
[2017-04-20] MEDS ORDERED: PHENYLEPHRINE HCL INJ/PF 10 MG/1 ML SDV IV PRN (01:42)
[2017-04-20] MEDS ORDERED: VASOPRESSIN INJ 20 UNIT/1 ML VIAL IV PRN ×2 (01:44→01:45)
--- NOTE | 2017-04-20 02:03 | Progress Note ---
Provider Note Provider Note: 04/20/17 Approximately midnight, I was contacted by the patient's intensive care unit nurse, stating that patient appeared to be having increased respiratory distress. Blood pressure had also dropped. Order was given for a liter bolus of saline, along with restarting his Levophed drip. I went to the patient's bedside shortly thereafter. Patient was in mild respiratory distress. Blood pressure appeared to be responding to both the IV fluid bolus and restarted Levophed, which, by nursing staff report, had been discontinued approximately 9 PM on the first. With chart review revealing his hypercarbia, decision was made to apply BiPAP. This temporarily provided some respiratory relief for the patient, but after short while, he once again began complaining of increased shortness of breath, with some grunting respirations. Decision was made then to proceed with endotracheal intubation. Patient agreed. This was accomplished by RN CCU. We began having problems with persistent hypotension, necessitating continuous crystalloid boluses, along with eventually 3 vasopressors. Levophed was titrated off due to bradycardia patient had developed. Patient was also given atropine for his bradycardia. Prior to intubation, with patient noted to have grunting respirations, I asked if he were in pain. Stated he was having abdominal pain. Mild to moderate diffuse abdominal discomfort was noted on palpation. Initial plans were to proceed with CT scan of abdomen and pelvis without contrast once patient had become hemodynamically stable. Unfortunately, patient then descended into pulseless electrical activity. Full ACLS code maneuvers were performed. However, despite the full continuous ACLS code maneuvers, we never were able to successfully recapture a pulse. Code procedure was then called after 28 minutes. Time of 1:56 AM. At 1 AM this morning, shortly after patient had been intubated, I spoke by phone with his brother Abdiel. I told him in mynor layperson's terms that patient was quite critically ill and may not survive this tremendous insult. He seemed to accept this well and appreciated our contacting him. At 2 AM, after code maneuvers ceased and patient had been pronounced, I spoke once again by phone with his brother Abdiel. Told him of the events that had occurred after my initial telephone conversation with him, and that unfortunately we had not been successful in our efforts at resuscitation. He seemed to accept this well. 90 minutes critical care time spent in evaluation and management of patient, including direct patient evaluation, multiple discussions with intensive care unit nursing staff, entering of multiple orders into the electronic health record, telephone discussion with patient's brother, and review of multiple labs along with radiology report.
[2017-04-20 03:15] VITALS: BP 145/63
[2017-04-20] MEDS ORDERED: GABAPENTIN 400 MG CAPSULE PO SCH (06:00)
[2017-04-20] MEDS ORDERED: CALCIUM CARBONATE 500 MG TABLET PO SCH (08:00)
[2017-04-20] MEDS ORDERED: SITAGLIPTIN PHOSPHATE 50 MG TABLET PO SCH (10:00)
[2017-04-20] MEDS ORDERED: DILTIAZEM HCL 120 MG CAP.SR.24H PO SCH (10:00)
[2017-04-20] MEDS ORDERED: ISOSORBIDE MONONITRATE 30 MG TAB.ER.24H PO SCH ×2 (10:00)
[2017-04-20] MEDS ORDERED: DULOXETINE HCL 30 MG CAPSULE.DR PO SCH (10:00)
--- NOTE | 2017-04-21 20:29 | DEATH SUMMARY E ---
Summary NAME: MEAGHAN SALAMANCA : 1945 AGE: 71Y ADMITTED: 04/19/2017 :04/20/2017 TIME OF : 0156 hours. DISCHARGE DIAGNOSES: Include: 1. Pneumonia. 2. Septic shock secondary to #1. 3. [id number] hypoxemic respiratory failure. 4. Chronic obstructive pulmonary disease. 5. Atrial fibrillation with rapid ventricular response. 6. Hyperlipidemia. 7. Coronary artery disease. 8. Chronic pain. 9. Diabetes mellitus type 2. 10. Benign prostatic hyperplasia. 11. Muscular dystrophy. HISTORY OF PRESENT ILLNESS: The patient is a 71-year-old male with an underlying history of diabetes mellitus and muscular dystrophy that presented to the emergency department with altered mental status. The patient was known to the hospitalist services. A week prior the patient had been admitted for pneumonia. The patient had improved and was transferred to a group home facility to continue his treatment. However, the patient arrived in the emergency department via EMS after [facility] staff contacted for altered mental status. As per EMS, they were unable to obtain a blood pressure on site and it appeared the patient was in septic shock. While in the emergency department the patient was given broad-spectrum antibiotic coverage, was started on Levophed, and the patient was referred to the hospitalist for admission and management. HOSPITAL COURSE: The patient was admitted to the ICU. The patient's initial course revealed significant improvement and the patient was actually weaned off Levophed for approximately an hour; however, the patient subsequently went into rapid ventricular response and blood pressure went down with measures to control the patient's rate. Therefore, the patient was resumed on pressors. In spite of broad-spectrum antibiotic coverage and aggressive management, the patient's white count remained significantly elevated and the patient became significantly acidotic and gradually decompensated. The patient was noted to be having grunting respirations and was intubated successfully by DIRECTOR HEMATOLOGY; however, the patient did have a PEA arrest. Full ACLS code maneuvers were unable to capture a pulse and a code was called for 28 minutes. The patient's brother, Abdiel, was made aware of the patient's expiration. Time spent on this summary is 7 minutes. DICTATING PHYSICIAN: FRED CORDON NP [id number] DT: 0000 PHY#: [id number] ID: [id number] JOB#: [id number] ACCT: [id number] cc:FRED CORDON NP > ANDREA
== END 2017-04-20 01:58 | disposition left against medical advice (07) | DRG 871 ==
LOC: ER 21:02 → EH 04-19 03:08 → UNDOADMIN 04-19 03:08 → EH 04-19 05:10 → ICU 04-19 08:35
PROVIDERS: ADMIT Family Medicine; ATTEND Family Medicine
PROC: 06HM33Z Insertion of Infusion Device into Right Femoral Vein, Percutaneous Approach (ICD-10-PCS; 2017-04-18)
PROC: 3E0F73Z Introduction of Anti-inflammatory into Respiratory Tract, Via Natural or Artificial Opening (ICD-10-PCS; 2017-04-19)
PROC: 5A09357 Assistance with Respiratory Ventilation, Less than 24 Consecutive Hours, Continuous Positive Airway Pressure (ICD-10-PCS; 2017-04-19)
PROC: 5A1935Z Respiratory Ventilation, Less than 24 Consecutive Hours (ICD-10-PCS; principal; 2017-04-20)
PROC: 0BH17EZ Insertion of Endotracheal Airway into Trachea, Via Natural or Artificial Opening (ICD-10-PCS; 2017-04-20)
DX: A41.9 Sepsis, unspecified organism (principal); J18.9 Pneumonia, unspecified organism; J96.21 Acute and chronic respiratory failure with hypoxia; R65.21 Severe sepsis with septic shock; G12.1 Other inherited spinal muscular atrophy; J44.9 Chronic obstructive pulmonary disease, unspecified; I48.91 Unspecified atrial fibrillation; E78.5 Hyperlipidemia, unspecified; I25.10 Atherosclerotic heart disease of native coronary artery without angina pectoris; G89.29 Other chronic pain; E11.9 Type 2 diabetes mellitus without complications; N40.0 Benign prostatic hyperplasia without lower urinary tract symptoms; I10 Essential (primary) hypertension; G43.909 Migraine, unspecified, not intractable, without status migrainosus; K21.9 Gastro-esophageal reflux disease without esophagitis; K44.9 Diaphragmatic hernia without obstruction or gangrene; M10.9 Gout, unspecified; L30.9 Dermatitis, unspecified; D64.9 Anemia, unspecified; F32.9 Major depressive disorder, single episode, unspecified; R00.1 Bradycardia, unspecified; F41.9 Anxiety disorder, unspecified; E66.9 Obesity, unspecified; Z68.31 Body mass index [BMI] 31.0-31.9, adult; I25.2 Old myocardial infarction; Z74.01 Bed confinement status; Z87.891 Personal history of nicotine dependence; Z86.73 Personal history of transient ischemic attack (TIA), and cerebral infarction without residual deficits; Z90.49 Acquired absence of other specified parts of digestive tract; Z79.01 Long term (current) use of anticoagulants; Z79.4 Long term (current) use of insulin; Z79.899 Other long term (current) drug therapy; Z88.8 Allergy status to other drugs, medicaments and biological substances; Z88.2 Allergy status to sulfonamides; Z80.6 Family history of leukemia; Z80.9 Family history of malignant neoplasm, unspecified; Z82.49 Family history of ischemic heart disease and other diseases of the circulatory system
CPT/HCPCS: 31500; 36415; 71010; 80048; 80053; 81001; 82040; 82550; 82553; 82803; 82962; 83605; 83735; 84484; 85025; 85610; 85730; 87040; 87086; 92950; 93005; 93010; 94002; 94660; 94667; 94799; 96361; 96365; 96366; 96367; 96368; 99291; 99292; C1751; J0171; J0461; J0692; J1720; J1815; J2370; J2704; J3370; J3490; J7030; J7060